=== PATIENT | female | born 1985 | race Two or more races ===

== ENCOUNTER 2020-04-12 16:00 | Emergency (ER) | payer OTHER, SELFPAY ==
[2020-04-12 16:05] VITALS: BP 147/97; PULSE 80; RESP 20; TEMP 36.8; O2SAT 100
--- NOTE | 2020-04-12 16:14 | ED.URI ---
HPI - URI/Sore Throat General Chief Complaint: Upper Respiratory Infection Stated Complaint: sore throat Time Seen by Provider: 04/12/20 16:14 Source: patient and RN notes reviewed History of Present Illness HPI Narrative: Patient is a 35-year-old female who presents the urgent care with complaints of a sore throat, cough and runny nose. Patient states her symptoms started 3 days ago when she has been taking cold medication, Tylenol and ibuprofen. Patient son was diagnosed with strep today at the facility however her kids were not with her throughout the entire weekend and patient is wanting tested for strep . Denies of any known fever, nausea, vomiting, headaches. No other acute complaints. No acute distress noted. Patient aware of the plan of care. Some parts of this dictation were generated by voice recognition software and may contain typographical and/or grammatical inaccuracies. Related Data Home Medications Medication Instructions Recorded Confirmed nortriptyline 25 mg PO HS 04/12/20 04/12/20 propranolol 60 mg PO Q12H 04/12/20 04/12/20 topiramate 100 mg PO BID 04/12/20 04/12/20 Allergies Allergy/AdvReac Type Severity Reaction Status Date / Time No Known Allergies Allergy Verified 04/12/20 16:16 Review of Systems Review of Systems: Narrative: CONSTITUTIONAL: Denies fever, chills, or sweats. EYES: Denies visual changes, redness, or discharge. ENT: Reports of sore throat, otalgia, rhinorrhea CARDIOVASCULAR: Denies chest pain, palpitations, or edema. RESPIRATORY: Denies cough or dyspnea. GASTROINTESTINAL: Denies abdominal pain, nausea, vomiting, or diarrhea. GENITOURINARY: Denies dysuria or hematuria. SKIN: Denies rash or itching. MUSCULOSKELETAL: Denies back pain, joint pain, or myalgia. NEUROLOGIC: Denies headache, numbness, or weakness. All other systems reviewed are negative, except as documented in HPI. PMFSH Comments At the time of my signature, I reviewed and agree with the nursing past medical, surgical, social, and family history. There is no relevant family history pertinent to the patient complaint. Exam Narrative: Exam Narrative: GENERAL: This is a well-nourished, well-developed patient, in no apparent distress. HEAD: normocephalic, atraumatic. EYES: PERRL. Sclera clear/white. Vision is grossly intact. EARS: External ears normal, auditory canals clear and without drainage, mild fluid noted behind bilateral TMs without otitis, TMs normal without perforation. Hearing grossly intact. NOSE: External nose normal with no obvious nasal discharge, nares without redness, no rhinorrhea. THROAT: Mucous membranes moist, posterior pharynx clear. Mild postnasal drainage NECK: Neck supple CARDIOVASCULAR: Regular rate and rhythm without murmurs, gallops, or rubs. RESPIRATORY: Clear to auscultation. Breath sounds equal bilaterally. No wheezes, rales, or rhonchi. SKIN: warm, intact with no suspicious lesions or rash, good texture and turgor. NEURO: awake, alert, and oriented to person, place and time. There were no obvious focal neurologic abnormalities. EXTREMITIES: No clubbing, cyanosis, or edema. Course Vital Signs Vital signs: Vital Signs Temperature 98.2 F 04/12/20 16:05 Pulse Rate 80 04/12/20 16:05 Respiratory Rate 20 04/12/20 16:05 Blood Pressure 147/97 H 04/12/20 16:05 Pulse Oximetry 100 04/12/20 16:05 Temperature 98.2 F 04/12/20 16:05 Pulse Rate 80 04/12/20 16:05 Respiratory Rate 20 04/12/20 16:05 Blood Pressure 147/97 H 04/12/20 16:05 Pulse Oximetry 100 04/12/20 16:05 Reviewed?patient is informed that they may have pre-hypertension or hypertension based on a blood pressure reading in the department. I recommend the patient call the primary care provider listed on their discharge instructions or a physician of their choice this week to arrange follow-up for further evaluation of possible pre-hypertension or hypertension. MDM - URI/Sore Throat MDM Narrative Medic
== END 2020-04-12 16:25 | disposition home or self-care (01) ==
PROVIDERS: Emergency Provider Nurse Practitioner Family; PCP Internal Medicine
DX: J02.9 Acute pharyngitis, unspecified (principal); I10 Essential (primary) hypertension
CPT/HCPCS: 87081; 87880; 99213; G0463

== ENCOUNTER 2022-07-18 17:55 | Emergency (ER) | payer OTHER, SELFPAY ==
[2022-07-18 18:25] VITALS: BP 120/88; PULSE 98; RESP 18; TEMP 36.9; O2SAT 100
--- NOTE | 2022-07-18 19:37 | ED.HA ---
HPI - Headache General Chief Complaint: Headache Stated Complaint: Headache Source: patient and RN notes reviewed Mode of arrival: ambulatory Limitations: no limitations History of Present Illness HPI Narrative: 37-year-old female presented for complaint of headache for 3 days. She endorses a history of migraines. She is taking Tylenol and Excedrin migraine without relief. She endorses nausea and has had 2 nosebleeds today which resolved with pressure. She denies head injury, sinus congestion, cough, shortness of breath, chest pain, vomiting or fevers or chills. Denies numbness, tingling, weakness of extremities. Related Data Home Medications Medication Instructions Recorded Confirmed propranolol 60 mg tablet 60 mg PO Q12H 04/12/20 07/18/22 topiramate 100 mg tablet 50 mg PO DAILY 04/12/20 07/18/22 Allergies Allergy/AdvReac Type Severity Reaction Status Date / Time citric acid Allergy Rash Verified 07/18/22 18:30 peanut Allergy Rash Verified 07/18/22 18:30 Review of Systems Review of Systems: Per HPI All systems reviewed & are unremarkable except as noted in HPI and below PMFSH Comments At time of signature, I have reviewed and agree with nursing past medical, surgical, social and family history unless otherwise noted. Please see nursing chart for further information. There is no relevant family history pertinent to the presenting complaint Exam Narrative: GENERAL: ill-appearing, well-nourished HEAD: Normocephalic, atraumatic. EYES: PERRLA, EOMI. ENT: Mucous membranes pink and moist. No rhinorrhea/epistaxis TMs normal bilaterally. NECK: Normal AROM. Supple. No lymphadenopathy. CHEST: Clear to auscultation. HEART: Regular rate and rhythm. No murmur appreciated. Normal peripheral pulses. EXTREMITIES: Normal range of motion. No edema. SKIN: Warm, dry, no rash. Capillary refill normal. Normal skin turgor. NEURO:No focal deficits. Alert and oriented x3. Finger to nose intact bilaterally. EOMs intact without nystagmus. No facial droop/asymmetry noted bilaterally. Grimace intact. Intact sensation in face. Hearing intact bilaterally. Shoulder shrug intact. Strength 5/5 bilateral upper extremities. Ambulatory exam with a normal based, steady gait. PSYCH: Normal affect. Course Course Emergency Course: Patient is aware of diagnosis, understands and agrees to treatment plan. Anticipatory guidance given. Patient agrees to follow-up as directed and is aware of reasons to seek care at the emergency department. Portions of this record may have been created with voice recognition software Level of Care: Express Care Visit Vital Signs Vital signs: Vital Signs Temperature 98.5 F 07/18/22 18:25 Pulse Rate 98 07/18/22 18:25 Respiratory Rate 18 07/18/22 18:25 Blood Pressure 120/88 07/18/22 18:25 Pulse Oximetry 100 07/18/22 18:25 Oxygen Delivery Room Air 07/18/22 18:25 Temperature 98.5 F 07/18/22 18:25 Pulse Rate 98 07/18/22 18:25 Respiratory Rate 18 07/18/22 18:25 Blood Pressure 120/88 07/18/22 18:25 Pulse Oximetry 100 07/18/22 18:25 Oxygen Delivery Room Air 07/18/22 18:25 MDM - Headache MDM Narrative Medical decision making narrative: patient reassessed after Toradol given. reported headache had subsided. Advised supportive measures and signs/symptoms to go to the ER. Pt is appropriate for outpt treatment and f/u. Differential Diagnosis Differential diagnosis: Likely migraine, tension headache, headache and sinusitis Discharge Plan Discharge Clinical Impression: Headache Patient Disposition: Home, Self-Care Condition: Stable Instructions: Migraine Headache (ED) Additional Instructions: If headache returns, rest in a cool dark room Avoid screens (computers, tablets, phones, television) Drink plenty fluids. Limit stress, avoid alcohol and chocolate, eat regularly Tylenol 1000mg every 8 hours as needed, alternate with ibuprofen
[2022-07-18] MEDS: KETOROLAC (*BKC) 60 MG/2 ML VIAL IM (19:55)
== END 2022-07-18 20:40 | disposition home or self-care (01) ==
PROVIDERS: Emergency Provider Nurse Practitioner Family; PCP Internal Medicine
DX: R51.9 Headache, unspecified (principal); I10 Essential (primary) hypertension
CPT/HCPCS: 96372; 99213; G0463; J1885

== ENCOUNTER 2022-07-30 18:44 | Emergency (ER) | payer OTHER, SELFPAY ==
[2022-07-30 19:08] VITALS: BP 113/77; PULSE 100; RESP 16; TEMP 36.6; O2SAT 100
--- NOTE | 2022-07-30 20:26 | ED.GENADULT ---
HPI - General Adult General Chief complaint: Upper Respiratory Infection Stated complaint: sore throat Source: patient Mode of arrival: ambulatory Limitations: no limitations History of Present Illness HPI narrative: Patient presents for evaluation of sore throat and cough for the last 2 days. She denies any fever, chills, nausea, vomiting, diarrhea. She has some mild shortness of breath. Her son is being evaluated here for the same symptoms. No personal history of COVID. She does not smoke. She is taking some [id number] cough and cold medicine with mild improvement in her symptoms thereafter. Related Data Home Medications Medication Instructions Recorded Confirmed propranolol 60 mg tablet 60 mg PO Q12H 04/12/20 07/18/22 topiramate 100 mg tablet 50 mg PO DAILY 04/12/20 07/18/22 norethindrone 1 mg-ethinyl tablet 07/30/22 estradiol 20 mcg (24)-iron 75 mg (4) tablet (Gui 24 Fe) venlafaxine 150 mg mg PO 07/30/22 capsule,extended release 24 hr Allergies Allergy/AdvReac Type Severity Reaction Status Date / Time citric acid Allergy Rash Verified 07/18/22 18:30 peanut Allergy Rash Verified 07/18/22 18:30 Review of Systems Review of Systems: CONSTITUTIONAL: Denies fever, chills, or sweats. EYES: Denies visual changes, redness, or discharge. ENT: Reports sore throat Denies rhinorrhea, congestion, or otalgia. CARDIOVASCULAR: Denies chest pain, palpitations, or edema. RESPIRATORY: Reports cough. Denies dyspnea. GASTROINTESTINAL: Denies abdominal pain, nausea, vomiting, or diarrhea. GENITOURINARY: Denies dysuria or hematuria. SKIN: Denies rash or itching. MUSCULOSKELETAL: Denies back pain, joint pain, or myalgia. NEUROLOGIC: Denies headache, numbness, dizziness, or weakness. PSYCHIATRIC: Denies anxiety or depression. [facility] Past Medical History Medical History Anxiety Hypertension Surgical History Surgical History History of tubal ligation Family History Family History Mother Family history non-contributory Social History Social History (Updated 07/30/22 @ 20:33 by LUIS ANTONIO Quintero, ) Substance use: never Gender identity (if verbalized by the patient): Female Sexual Orientation (if Verbalized by the Patient): Straight or Heterosexual Spiritual care concerns: No Exam Narrative: GENERAL: Well-appearing, well-nourished, and in no acute distress. HEAD: Normocephalic, atraumatic. EYES: PERRLA and EOMI. ENT: Nares clear, no rhinorrhea or epistaxis. Mucous membranes moist. There is some mild posterior pharyngeal erythema without exudate. Uvula is midline. Bilateral TMs pearly caldera nonbulging NECK: Supple. No adenopathy or masses. No carotid bruits or JVD CHEST: Clear to auscultation. No respiratory distress. No wheezes rales or rhonchi HEART: Regular rate and rhythm. No murmur heard. Normal peripheral pulses. ABDOMEN: Soft, nontender, nondistended, normal active bowel sounds. EXTREMITIES: Normal range of motion. No edema. SKIN: Warm, dry, no rash. NEURO: No focal deficits. Alert and oriented x3. PSYCH: Normal mood and affect. Course Course Emergency Course: This is a 37-year-old female who presented for evaluation of sore throat and cough. Strep was positive. Will treat with amoxicillin. Increase hydration. [id number] agents for symptom management. Follow up with primary provider. Go to the ER for difficulty breathing or swelling. Patient in agreement with plan of care. Level of Care: Express Care Visit Vital Signs Vital signs: Vital Signs Temperature 36.6 C 07/30/22 19:08 Pulse Rate 100 07/30/22 19:08 Respiratory Rate 16 07/30/22 19:08 Blood Pressure 113/77 07/30/22 19:08 Pulse Oximetry 100 07/30/22 19:08 Oxygen Delivery Room Air 07/30/22 19:08
== END 2022-07-30 20:32 | disposition home or self-care (01) ==
PROVIDERS: Emergency Provider Nurse Practitioner; PCP Internal Medicine
DX: J02.0 Streptococcal pharyngitis (principal); I10 Essential (primary) hypertension; F41.9 Anxiety disorder, unspecified
CPT/HCPCS: 87880; 99213; G0463

== ENCOUNTER 2023-09-18 16:47 | Emergency (ER) | payer OTHER, SELFPAY ==
--- NOTE | 2023-09-18 16:51 | ED.URI ---
HPI - URI/Sore Throat General Chief Complaint: Upper Respiratory Infection Stated Complaint: Sore Throat Source: patient and RN notes reviewed Mode of arrival: ambulatory Limitations: no limitations History of Present Illness HPI Narrative: Patient is a 38-year-old female who presents to the [facility] with complaints of sore throat, cough, and congestion for the past week. She states that her symptoms continue to worsen. She reports a frequent nonproductive cough. Denies chest pain or shortness of breath. She reports worsening sore throat. States that it hurts to swallow. She also experienced some mild abdominal pain this morning that is not present currently. She denies nausea or vomiting. Reports diarrhea. Denies blood in the stool. Denies known fevers. Denies any known sick contacts. Related Data Home Medications Medication Instructions Recorded Confirmed propranolol 60 mg tablet 60 mg PO Q12H 04/12/20 07/18/22 topiramate 100 mg tablet 50 mg PO DAILY 04/12/20 07/18/22 norethindrone 1 mg-ethinyl tablet 07/30/22 estradiol 20 mcg (24)-iron 75 mg (4) tablet (Gui 24 Fe) venlafaxine 150 mg mg PO 07/30/22 capsule,extended release 24 hr cetirizine 10 mg tablet mg 09/18/23 omeprazole 20 mg capsule,delayed mg 09/18/23 release rizatriptan 10 mg tablet mg 09/18/23 valsartan 160 tablet 09/18/23 mg-hydrochlorothiazide 12.5 mg tablet Allergies Allergy/AdvReac Type Severity Reaction Status Date / Time citric acid Allergy Rash Verified 09/18/23 17:37 peanut Allergy Rash Verified 09/18/23 17:37 Review of Systems Review of Systems: CONSTITUTIONAL: Denies fever, chills, or sweats. EYES: Denies visual changes, redness, or discharge. ENT: Denies otalgia. Reports sore throat. Reports nasal congestion. CARDIOVASCULAR: Denies chest pain, palpitations, or edema. RESPIRATORY: Reports cough but denies dyspnea. GASTROINTESTINAL: Denies abdominal pain, nausea, vomiting, but reports diarrhea. GENITOURINARY: Denies dysuria or hematuria. SKIN: Denies rash or itching. MUSCULOSKELETAL: Denies back pain, joint pain, or myalgia. NEUROLOGIC: Denies headache, numbness, or weakness. Pertinent positives per HPI. PMFSH Past Medical History Medical History Anxiety Hypertension Surgical History Surgical History History of tubal ligation Family History Family History Mother Family history non-contributory Social History Social History Substance use: never Living arrangements: with family Gender identity (if verbalized by the patient): Female Sexual Orientation (if Verbalized by the Patient): Straight or Heterosexual Spiritual care concerns: No Comments At the time of my signature, I reviewed and agree with the nursing past medical, surgical, social, and family history. There is no relevant family history pertinent to the patient complaint. Exam Narrative: GENERAL: This is a well-nourished, well-developed patient, in no apparent distress. HEAD: normocephalic, atraumatic. EYES: Sclera clear/white. Vision is grossly intact. EARS: External ears normal. Hearing grossly intact. NOSE: External nose normal with no obvious nasal discharge, nares without redness, no rhinorrhea. THROAT: Mucous membranes moist, oropharyngeal erythema without exudate or ulceration. NECK: Neck supple, non-tender without lymphadenopathy, masses or thyromegaly. CARDIOVASCULAR: Regular rate and rhythm without murmurs, gallops, or rubs. RESPIRATORY: Clear to auscultation. Breath sounds equal bilaterally. No wheezes, rales, or rhonchi. GASTROINTESTINAL: Abdomen soft, non-tender, nondistended. Bowel sounds are active. No hepato-splenomegaly, or palpable masses. No guarding. SKIN: warm, intact wi
[2023-09-18 16:54] VITALS: BP 139/93; PULSE 100; RESP 16; TEMP 36.5; O2SAT 100
== END 2023-09-18 17:52 | disposition home or self-care (01) ==
PROVIDERS: Emergency Provider Nurse Practitioner; PCP Internal Medicine
DX: J02.0 Streptococcal pharyngitis (principal); Z20.822 Contact with and (suspected) exposure to COVID-19; I10 Essential (primary) hypertension
CPT/HCPCS: 87426; 87804; 87880; 99213; G0463

== ENCOUNTER 2024-01-10 13:19 | Emergency (ER) | payer OTHER, SELFPAY ==
[2024-01-10 13:23] VITALS: BP 122/81; PULSE 109; RESP 18; TEMP 36.7; O2SAT 100
--- NOTE | 2024-01-10 13:50 | ED.URI ---
HPI - URI/Sore Throat General Chief Complaint: Upper Respiratory Infection Stated Complaint: sore throat Time Seen by Provider: 01/10/24 13:42 Source: patient, RN notes reviewed and old records reviewed Mode of arrival: ambulatory Limitations: no limitations History of Present Illness HPI Narrative: 38-year-old female to Express Care for complaint sore throat, runny nose and bilateral ear pressure for 3 days. Patient has attempted to treat at home with [id number] medication with little relief. Patient denies fever, cough, chest pain, shortness of breath. Patient able tolerate fluids by mouth. Respirations even and nonlabored. Patient in no acute distress. Related Data Home Medications Medication Instructions Recorded Confirmed propranolol 60 mg tablet 60 mg PO Q12H 04/12/20 07/18/22 topiramate 100 mg tablet 50 mg PO DAILY 04/12/20 07/18/22 norethindrone 1 mg-ethinyl tablet 07/30/22 estradiol 20 mcg (24)-iron 75 mg (4) tablet (Gui 24 Fe) venlafaxine 150 mg mg PO 07/30/22 capsule,extended release 24 hr omeprazole 20 mg capsule,delayed mg 09/18/23 release rizatriptan 10 mg tablet mg 09/18/23 valsartan 160 tablet 09/18/23 mg-hydrochlorothiazide 12.5 mg tablet Allergies Allergy/AdvReac Type Severity Reaction Status Date / Time citric acid Allergy Rash Verified 09/18/23 17:37 peanut Allergy Rash Verified 09/18/23 17:37 Review of Systems Review of Systems: All systems reviewed & are unremarkable except as noted in HPI and below Constitutional: Constitutional: Reports no additional constitutional complaints Eyes: Eyes: Reports no additional eye complaints ENT: Reports as per HPI, Reports otalgia ( Bilateral pressure), Reports nasal discharge and Reports sore throat Cardiovascular: Cardiovascular: Reports no additional cardiovascular complaints, Denies chest pain and Denies dyspnea Respiratory: Respiratory: Reports no additional respiratory complaints, Denies cough and Denies dyspnea Musculoskeletal: Musculoskeletal: Reports no additional musculoskeletal complaints Neurologic: Reports system reviewed and no additional complaints, except as documented Psychiatric: Psychiatric: Reports no additional psychiatric complaints PMFSH Past Medical History Medical History Anxiety Hypertension Surgical History Surgical History History of tubal ligation Family History Family History Mother Family history non-contributory Social History Social History Substance use: never Living arrangements: with family Gender identity (if verbalized by the patient): Female Sexual Orientation (if Verbalized by the Patient): Straight or Heterosexual Spiritual care concerns: No Comments At the time of my signature, I reviewed and agree with the nursing past medical, surgical, social, and family history. There is no relevant family history pertinent to the patient complaint. Exam Const: General: cooperative, no acute distress, alert, ill appearing acutely, tired appearing, uncomfortable and well nourished Nutritional Appearance: well nourished Orientation/consciousness: patient oriented x3 Limitations: no limitations HENMT: Head: normal to inspection Ears: external ears normal and TM abnormal with fluid behind the TM bilateral Face/Nose/Sinus: Normal external nose present, Normal nares present, normal facial exam, No erythema and No edema Face and sinus: normal facial exam, no erythema and no edema Mouth: Yes Normal oral and palatal mucosa present Throat: posterior oropharynx abnormal erythema and exudates and postnasal drainage Eyes: General: appearance normal, both eyes and all related structures Neck: Neck: normal visual inspection, full R
== END 2024-01-10 14:13 | disposition home or self-care (01) ==
PROVIDERS: Emergency Provider Nurse Practitioner Family; PCP Internal Medicine
DX: J02.0 Streptococcal pharyngitis (principal); I10 Essential (primary) hypertension
CPT/HCPCS: 87880; 99212; G0463

== ENCOUNTER 2024-10-13 08:59 | Outpatient (CLI) | payer OTHER, SELFPAY ==
--- NOTE | ~2024-10-13 | XR_ITS ---
XR sacroiliac joints min 3V Ordering provider: Kali Knapp DO History: . Scoliosis,CHRONIC LOW BACK PAIN,NKI . Comparison: None. FINDINGS: BONES: No acute fracture or dislocation. JOINTS: The bilateral sacroiliac joint spaces appear well maintained. No bony fusion of the sacroilia c joints or bony erosions. SOFT TISSUES: Unremarkable. IMPRESSION: NO ACUTE OSSEOUS ABNORMALITY. NORMAL SACROILIAC JOINTS. Reviewed, dictated and finalized at location A.
--- NOTE | ~2024-10-13 | XR_ITS ---
3 VIEWS LUMBAR SPINE Ordering provider: Kali Knapp DO History: . Scoliosis,CHRONIC LOW BACK PAIN,NKI . Comparison: None. FINDINGS: VERTEBRAL BODIES: No visible fracture or subluxation. Loss of lordosis. DISK SPACES: Narrowing of the disc L5-S1. SOFT TISSUES: Normal. IMPRESSION: No acute osseous abnormality lumbar spine. Degenerative disc disease at the level of L5-S1. Loss of lordosis suggestive of muscle spasm. Reviewed, dictated and finalized at location A.
--- OUTSIDE RECORDS SUMMARY | 2024-10-13 09:38 | XMS_ITS | Data Portability ---
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 possible early menopause? - no desire to wait a month to do testing [email or web address] Not available 08/06/2024 10:56:28 Plan of Treatment Reminders Order Date Submit Date Provider Last Modified By Organization Details Last Modified Time Details Appointments None recorded. Lab cytology report, thin prep, smear or scraping, cervical or vaginal 2024 025 [facility], [address] [place] [address], [id number], 5 11:10:59 urinalysis , dipstick 2023 024 nsuthan In-Office Order, Internal Use Only DO Not Attach Compendium DO Not Attach Compendium, Do Not Delete/merge, [id number] 4 12:22:53 Referral sleep medicine referral 2024 025 castillo Costa MD, 1 [facility], Third Floor, [place], [address], 5 11:34:47 clinical therapist referral 2024 025 FLETCHER Quinones [facility], [facility], [address] [place], [address], 16:24:36 Procedures None recorded. Surgeries None recorded. Imaging None recorded. Medication Orders Gui 24 Fe 1 mg-20 mcg (24)/75 mg (4) tablet 2024 025 [facility], [address] [place] [address], [address], 5 10:48:32 nitrofuran toin monohydrat e/macrocry stals 100 mg capsule 2023 025 [facility], [address] [place] [address], [address], 5 11:34:07 Pyridium 200 mg tablet 2023 025 [facility], [address] [place] [address], [address], 5 11:34:41 hydroxyzin e HCl 25 mg tablet 2023 024 [facility], [address] [place] [address], [address], 4 12:11:00 Patient TargetsNo targets recorded. Patient Instructions Encounter Date Encounter Id Patient Instructions Last Modified By Organization Details Last Modified Time 11/28/2023 [id number] eating healthy foods: care instructions nsuthan Not available 11/28/2023 09:50:40 f/u in 1month nsuthan Not available 09:52:00 12/31/2023 [id number] f/u in 3month nsuthan Not available 0 12/31/2023 11:38:59 02/13/2024 [id number] keep f/u nsuthan Not available 02/12 15:36:25 08/03/2024 [id number] f/u in 1 month nsuthan Not available 08/03/2024 12:31:31 Reason for Referral Sleep Medicine Referral for Daytime hypersomnia Referring Physician: Allyson Macias, Internal Medicine, Encounter Date: 08/03/2024 Clinical Therapist Referral for Mixed anxiety and depressive disorder Referring Physician: Allyson Macias, Internal Medicine, Encounter Date: 08/03/2024 Results Created Date Observation Date Name Description Value Unit Range Abnormal Flag Note LastModifiedBy Organization Detail LastModifiedTime 11/08/19 24 11/12/2023 IGP,C TNGTV ,RFX APTIM A HPV ASCU chlamydia, nuc. acid amp Negati ve negati ve Not Available [facility] ([facility]) [address] [place], [address], 11/14/2023 16:16:52 11/08/19 24 11/12/2023 IGP,C TNGTV ,RFX APTIM A HPV ASCU gonococcus, nuc. acid amp Negati ve negati ve Not Available [facility] ([facility]) [address] [place], [address], 11/14/2023 16:16:52 11/08/19 24 11/12/2023 IGP,C TNGTV ,RFX APTIM A HPV ASCU trich vag by NUNO Negati ve negati ve Not Available [facility] ([facility]) [address] [place], [address], 11/14/2023 16:16:52 11/08/19 24 11/14/2023 IGP,C TNGTV ,RFX APTIM A HPV ASCU diagnosis: Commen t NEGAT JAIME FOR INTRA EPITH ELIAL LESIO N OR MALIG BRITANY . FUNGA L ORGAN ISMS MORPH OLOGI RAYMUNDO CONSI STENT WITH LOKESH DA SPECI ES ARE PRESE NT. PREDO MINAN CE OF COCCO BACIL LI CONSI STENT WITH SHIFT IN VAGIN AL LEVI IS PRESE NT. THIS SPECI MEN WAS RESCR EENED PART OF OUR QUALI TY CONTR OL PROGR AM. Not Available [facility] ([facility]) [address] [place], [address], 11/14/2023 16:16:52 11/08/19 24 11/14/2023 IGP,C TNGTV ,RFX APTIM A HPV ASCU specimen adequacy: Bryan griffiths Satis facto ry for evalu ation . No endoc ervic al compo nent is ident ified . Not Available [facility] ([facility]) [address] [facility], [place], [address], 11/14/2023 16:16:52 11/08/19 24 11/14/2023 IGP,C TNGTV ,RFX APTIM A HPV ASCU clinician provided ICD10: Bryan griffiths R87.6 12 Not Available [facility] ([facility]) [address] [facility], [place], [address], 11/14/2023 16:16:52 11/08/19 24 11/14/2023 IGP,C TNGTV ,RFX APTIM A HPV ASCU performed by: Bryan swenson, Cytot echno logis t (ASCP ) Not Available [facility] ([facility]) [address] [facility], [place], [address], 11/14/2023 16:16:52 11/08/19 24 11/14/2023 IGP,C TNGTV ,RFX APTIM A HPV ASCU QC reviewed by: Bryan Pedroza, Cytot echno logis t (ASCP ) Not Available [facility] ([facility]) [address] [facility], [place], [address], 11/14/2023 16:16:52 11/08/19 24 11/14/2023 IGP,C TNGTV ,RFX APTIM A HPV ASCU . . Not Available [facility] ([facility]) [address] [place], [address], 11/14/2023 16:16:52 11/08/19 24 11/14/2023 IGP,C TNGTV ,RFX APTIM A HPV ASCU note: Commen t The Pap smear is a scree apoorva test desig marcos to aid in the detec tion of ludwig ligna nt and malig nant condi tions of the uteri ne cervi x. It is not a diagn ostic proce dure and shoul d not be used as the sole means of detec ting cervi jignesh cance r. Both false -posi tive and false -nega tive repor ts do occur . Not Available [facility] ([facility]) [address] [place], [address], 11/14/2023 16:16:52 11/08/19 24 11/14/2023 IGP,C TNGTV ,RFX APTIM A HPV ASCU test methodology: Commen t This liqui d based ThinP rep(R ) pap test was scree marcos with the use of an image guide d syste m. Not Available [facility] ([facility]) [address] [place], [address], 11/14/2023 16:16:52 11/08/19 24 11/14/2023 IGP,C TNGTV ,RFX APTIM A HPV ASCU . Commen t The HPV DNA refle x crite hunter were not met with this speci men resul t there fore, no HPV testi ng was perfo rmed. Not Available [facility] ([facility]) [address] [place], [address], 11/14/2023 16:16:52 11/28/19 24 12/06/2023 METAN EPHRI JERZY, FRAC. , PL. FREE normetanephr ine, pl 80.0 pg/mL 0.0-21 0.1 Not Available [facility] ([facility]) [address] [place], [address], 12/06/2023 16:12:52 11/28/19 24 12/06/2023 METAN EPHRI JERZY, FRAC. , PL. FREE metanephrine , pl 30.3 pg/mL 0.0-88 .0 Not Available [facility] ([facility]) [address] [place], [address], 12/06/2023 16:12:52 11/28/19 24 11/29/2023 COMP. METAB OLIC PANEL (14) glucose 113 mg/dL 70-99 above high normal Not Available [facility] ([facility]) [address] [place], [address], 12/06/2023 16:12:53 11/28/19 24 11/29/2023 COMP. METAB OLIC PANEL (14) BUN 10 mg/dL 6-20 Not Available [facility] ([facility]) [address] [place], [address], 12/06/2023 16:12:53 11/28/19 24 11/29/2023 COMP. METAB OLIC PANEL (14) creatinine 0.69 mg/dL 0.57-1 .00 Not Available [facility] ([facility]) [address] [place], [address], 12/06/2023 16:12:53 11/28/19 24 11/29/2023 COMP. METAB OLIC PANEL (14) eGFR 115 mL/mi n/1.7 3 >59 Not Available [facility] ([facility]) [address] [place], [address], 12/06/2023 16:12:53 11/28/19 24 11/29/2023 COMP. METAB OLIC PANEL (14) BUN/creatini ne ratio 14 9-23 Not Available [facility]) [address] [place], [address], 12/06/2023 16:12:53 11/28/19 24 11/29/2023 COMP. METAB OLIC PANEL (14) sodium 139 mmol/ L 134-14 4 Not Available [facility] ([facility]) [address] [place], [address], 12/06/2023 16:12:53 11/28/19 24 11/29/2023 COMP. METAB OLIC PANEL (14) potassium 4.4 mmol/ L 3.5-5. 2 Not Available [facility] ([facility]) [address] [place], [address], 12/06/2023 16:12:53 11/28/19 24 11/29/2023 COMP. METAB OLIC PANEL (14) chloride 99 mmol/ L 96-106 Not Available [facility] ([facility]) [address] [place], [address], 12/06/2023 16:12:53 11/28/19 24 11/29/2023 COMP. METAB OLIC PANEL (14) carbon dioxide, total 26 mmol/ L 20-29 Not Available [facility] ([facility]) [address] [facility] [place], [address], 12/06/2023 16:12:53 11/28/19 24 11/29/2023 COMP. METAB OLIC PANEL (14) calcium 9.5 mg/dL 8.7-10 .2 Not Available [facility] ([facility] [address] [facility] [place], [address], 12/06/2023 16:12:53 11/28/19 24 11/29/2023 COMP. METAB OLIC PANEL (14) protein, total 6.6 g/dL 6.0-8. 5 Not Available [facility] ([facility] [address] [facility] [place], [address], 12/06/2023 16:12:53 11/28/19 24 11/29/2023 COMP. METAB OLIC PANEL (14) albumin 4.2 g/dL 3.9-4. 9 Not Available [facility] ([place] [facility]) [address] [facility] [place], [address], 12/06/2023 16:12:53 11/28/19 24 11/29/2023 COMP. METAB OLIC PANEL (14) globulin, total 2.4 g/dL 1.5-4. 5 Not Available [facility] ([facility]) [address] [facility], [place], [address], 12/06/2023 16:12:53 11/28/19 24 11/29/2023 COMP. METAB OLIC PANEL (14) A/G ratio 1.8 1.2-2. 2 Not Available [facility] ([facility]) [address] [facility], [place], [address], 12/06/2023 16:12:53 11/28/19 24 11/29/2023 COMP. METAB OLIC PANEL (14) bilirubin, total 0.3 mg/dL 0.0-1. 2 Not Available [facility] ([facility]) [address] [facility], [place], [address], 12/06/2023 16:12:53 11/28/19 24 11/29/2023 COMP. METAB OLIC PANEL (14) alkaline phosphatase 56 IU/L 44-121 Not Available [facility] [address] [facility], [place], [address], 12/06/2023 16:12:53 11/28/19 24 11/29/2023 COMP. METAB OLIC PANEL (14) AST (SGOT) 14 IU/L 0-40 Not Available [facility] ([facility]) [address] [facility], [place], [address], 12/06/2023 16:12:53 11/28/19 24 11/29/2023 COMP. METAB OLIC PANEL (14) ALT (SGPT) 12 IU/L 0-32 Not Available [facility] ([facility]) [address] [facility], [place], [address], 12/06/2023 16:12:53 11/28/19 24 11/29/2023 CBC, PLATE LET, NO DIFFE RENTI AL WBC 6.2 x10e3 /uL 3.4-10 .8 Not Available [facility] ([facility]) [address] [facility], [place], [address], 12/06/2023 16:12:53 11/28/19 24 11/29/2023 CBC, PLATE LET, NO DIFFE RENTI AL RBC 4.70 x10e6 /uL 3.77-5 .28 Not Available [facility] ([facility]) [address] [facility], [place], [address], 12/06/2023 16:12:53 11/28/19 24 11/29/2023 CBC, PLATE LET, NO DIFFE RENTI AL hemoglobin 14.3 g/dL 11.1-1 5.9 Not Available [facility] ([facility]) [address] [place], [address], 12/06/2023 16:12:53 11/28/19 24 11/29/2023 CBC, PLATE LET, NO DIFFE RENTI AL hematocrit 43.6 % 34.0-4 6.6 Not Available [facility] ([facility]) [address] [facility], [place], [address], 12/06/2023 16:12:53 11/28/19 24 11/29/2023 CBC, PLATE LET, NO DIFFE RENTI AL MCV 93 fL 79-97 Not Available [facility] ([facility]) [address] [place], [address], 12/06/2023 16:12:53 11/28/19 24 11/29/2023 CBC, PLATE LET, NO DIFFE RENTI AL MCH 30.4 pg 26.6-3 3.0 Not Available [facility] ([facility]) [address] [place], [address], 12/06/2023 16:12:53 11/28/19 24 11/29/2023 CBC, PLATE LET, NO DIFFE RENTI AL MCHC 32.8 g/dL 31.5-3 5.7 Not Available [facility] ([facility]) [address] [facility], [place], [address], 12/06/2023 16:12:53 11/28/19 24 11/29/2023 CBC, PLATE LET, NO DIFFE RENTI AL RDW 11.9 % 11.7-1 5.4 Not Available [facility] ([facility]) [address] [facility], [place], [address], 12/06/2023 16:12:53 11/28/19 24 11/29/2023 CBC, PLATE LET, NO DIFFE RENTI AL platelets 342 x10e3 /uL 150-45 0 Not Available [facility] ([facility]) [address] [facility], [place], [address], 12/06/2023 16:12:53 02/13/20 24 02/13/2024 urina lysis , dipst ick Leukocytes Trace Not Available In-Offi ce Order Internal Use Only DO Not Attach Compendium DO Not Attach Compendium, Do Not Delete/merge, [id number] 02/13/2024 12:13:43 02/13/20 24 02/13/2024 urina lysis , dipst ick Nitrite negati ve Not Available In-Office Order Internal Use Only DO Not Attach Compendium DO Not Attach Compendium, Do Not Delete/merge, [id number] 02/13/2024 12:13:43 02/13/20 24 02/13/2024 urina lysis , dipst ick Urobilinogen 2 Not Available In-Of fice Order Internal Use Only DO Not Attach Compendium DO Not Attach Compendium, Do Not Delete/merge, [id number] 02/13/2024 12:13:43 02/13/20 24 02/13/2024 urina lysis , dipst ick Protein Trace Not Available In-Office Order Internal Use Only DO Not Attach Compendium DO Not Attach Compendium, Do Not Delete/merge, [id number] 02/13/2024 12:13:43 02/13/20 24 02/13/2024 urina lysis , dipst ick pH 7.5 Not Available In-Office Order Internal Use Only DO Not Attach Compendium DO Not Attach Compendium, Do Not Delete/merge, 02/13/2024 12:13:43 02/13/20 24 02/13/2024 urina lysis , dipst ick Blood Non-He molyze d: Trace Not Available In-Office Order Internal Use Only DO Not Attach Compendium DO Not Attach Compendium, Do Not Delete/merge, 02/13/2024 12:13:43 02/13/20 24 02/13/2024 urina lysis , dipst ick Specific Perris 1.015 Not Available In-Off ice Order Internal Use Only DO Not Attach Compendium DO Not Attach Compendium, Do Not Delete/merge, 02/13/2024 12:13:43 02/13/20 24 02/13/2024 urina lysis , dipst ick Ketone Negati ve Not Available In-Office Order Internal Use Only DO Not Attach Compendium DO Not Attach Compendium, Do Not Delete/merge, 02/13/2024 12:13:43 02/13/20 24 02/13/2024 urina lysis , dipst ick Bilirubin Negati ve Not Available In-Office Order Internal Use Only DO Not Attach Compendium DO Not Attach Compendium, Do Not Delete/merge, 02/13/2024 12:13:43 02/13/20 24 02/13/2024 urina lysis , dipst ick Glucose Negati ve Not Available In-Office Order Internal Use Only DO Not Attach Compendium DO Not Attach Compendium, Do Not Delete/merge, 02/13/2024 12:13:43 02/13/20 24 02/13/2024 urina lysis , dipst ick Appearance Clear Not Available In-Offi ce Order Internal Use Only DO Not Attach Compendium DO Not Attach Compendium, Do Not Delete/merge, 02/13/2024 12:13:43 02/13/20 24 02/13/2024 urina lysis , dipst ick Color Yellow Not Available In-Office Order Internal Use Only DO Not Attach Compendium DO Not Attach Compendium, Do Not Delete/merge, [id number] 02/13/2024 12:13:43 06/22/2006/22/2024 Influ princess virus A and B and SARS- CoV-2 (COVI D-19) and Respi rator y syncy tial virus RNA panel - Respi rator y syste m speci men by NUNO with probe detec tion influenza virus A RNA [presence] in upper respiratory specimen by NUNO with probe detection Negati ve text: negati ve, error FLU A Negat jaime Negat jaime, Error 06/22 12:17 PM POOLROOM TABLE ATTENDANT [facility] Not Available Not Available 09/21/2024 15:22:53 06/22/20 24 06/22/2024 Influ princess virus A and B and SARS- CoV-2 (COVI D-19) and Respi rator y syncy tial virus RNA panel - Respi rator y syste m speci men by NUNO with probe detec tion influenza virus B RNA [presence] in upper respiratory specimen by NUNO with probe detection Negati ve text: negati ve FLU B Negat jaime Negat jaime 06/22 12:17 PM POOLROOM TABLE ATTENDANT [facility] Not Available Not Available 09/21/2024 15:22:53 06/22/20 24 06/22/2024 Influ princess virus A and B and SARS- CoV-2 (COVI D-19) and Respi rator y syncy tial virus RNA panel - Respi rator y syste m speci men by NUNO with probe detec tion respiratory syncytial virus RNA [presence] in respiratory system specimen by NUNO with probe detection Negati ve text: negati ve RESP SYNC VIRUS Negat jaime Negat jaime 06/22 12:17 PM POOLROOM TABLE ATTENDANT [facility] [employer] R LAB Not Available Not Available 09/21/2024 15:22:53 06/22/20 24 06/22/2024 Influ princess virus A and B and SARS- CoV-2 (COVI D-19) and Respi rator y syncy tial virus RNA panel - Respi rator y syste m speci men by NUNO with probe detec tion sars-cov-2 (covid-19) N gene [presence] in specimen by NUNO with probe detection NOT DETECT ED text: (refer ence range for this test IS not detect ed) SARSC OV2 NOT DETEC TERE (Refe rence Range for this test is Not Detec tere) 06/22 12:17 PM POOLROOM TABLE ATTENDANT [facility] Not Available Not Available 09/21/2024 15:22:53 06/22/2006/22/2024 Influ princess virus A and B and SARS- CoV-2 (COVI D-19) and Respi rator y syncy tial virus RNA panel - Respi rator y syste m speci men by NUNO with probe detec tion Unknown Analyte This test has not been FDA cleare d or approv ed; the test has been author ized by FDA under an Emerge ncy Use Author izronnie n (EUA) for use by twila fernandes certif ied under the CLIA that meet the requir ements to perfor m modera te, high or waived comple xity tests. Author ized Fact Sheets about this test for provid ers and patien ts are availa ble at: https: //www. fda.go v/medi jignesh-de vices/ emerge ncy-si tuatio ns-med ical-d evices /emerg ency-u se-aut horiza tions This test has not been FDA clear ed or appro lamont; the test has been autho rized by FDA under an Emerg ency Use Autho rizat ion (EUA) for use by labor atori es certi fied under the CLIA that meet the requi remen ts to perfo rm moder ate, high or waive d compl exity tests . Autho rized Fact Sheet s about this test for provi ders and patie nts are avail able at: https ://ww w.fda .gov/ medic al-de vices /emely gency -situ ation s-med ical- devic es/em ergen cy-us e-aut horiz ation s Not Available Not Available 09/21/2024 15:22:53 06/22/2006/22/2024 Influ princess virus A and B and SARS- CoV-2 (COVI D-19) and Respi rator y syncy tial virus RNA panel - Respi rator y syste m speci men by NUNO with probe detec tion interpretati on and review of laboratory results Normal Not Available Not Available 08/30 15:22:53 06/22/2006/22/2024 CBC W Auto Diffe renti al panel - Blood leukocytes [#/volume] in blood by automated count 7.48 text: 4.00 - 12.00 10(3)/ mcL WBC 7.48 4.00 - 12.00 10(3) /mcL 06/22 11:07 AM POOLROOM TABLE ATTENDANT [facility] t[facility]caT H [facility]ER[facility] R LAB Not Available Not Available 09/21/2024 15:22:53 06/22/2006/22/2024 CBC W Auto Diffe renti al panel - Blood erythrocytes [#/volume] in blood by automated count 4.75 text: 3.80 - 5.30 10(6)/ mcL RBC 4.75 3.80 - 5.30 10(6) /mcL 06/22 11:07 AM POOLROOM TABLE ATTENDANT [facility] Not Available Not Available 09/21/2024 15:22:53 06/22/2006/22/2024 CBC W Auto Diffe renti al panel - Blood hemoglobin [mass/volume ] in blood 14.6 g/dL low: 12g/dL high: 15.8g/ dL HEMOG LOBIN (HGB) 14.6 12.0 - 15.8 g/dL 06/22 11:07 AM POOLROOM TABLE ATTENDANT [facility] tamycaT H i[facility]OSPHEREE R LAB Not Available Not Available 09/21/2024 15:22:53 06/22/2006/22/2024 CBC W Auto Diffe renti al panel - Blood hematocrit [volume fraction] of blood by automated count 43.3 % low: 36%hig h: 47% HEMAT OCRIT (HCT) 43.3 36.0 - 47.0 % 06/22 11:07 AM POOLROOM TABLE ATTENDANT [facility] tamycaT H CENTE R LAB Not Available Not Available 09/21/2024 15:22:53 06/22/2006/22/2024 CBC W Auto Diffe renti al panel - Blood MCV [entitic volume] by automated count 91.2 fL low: 82fLhi gh: 96fL MCV 91.2 82.0 - 96.0 fL 06/22 11:07 AM POOLROOM TABLE ATTENDANT [facility] Not Available Not Available 09/21/2024 15:22:53 06/22/2006/22/2024 CBC W Auto Diffe renti al panel - Blood MCH [entitic mass] by automated count 30.7 pg low: 26pghi gh: 34pg MCH 30.7 26.0 - 34.0 pg 06/22 11:07 AM [facility] Not Available Not Available 09/21/2024 15:22:53 06/22/2006/22/2024 CBC W Auto Diffe renti al panel - Blood MCHC [mass/volume ] by automated count 33.7 g/dL low: 31g/dL high: 36g/dL MCHC 33.7 31.0 - 36.0 g/dL 06/22 11:07 AM [facility] Not Available Not Available 09/21/2024 15:22:53 06/22/2006/22/2024 CBC W Auto Diffe renti al panel - Blood platelets [#/volume] in blood 363 text: 140 - 440 10(3)/ mcL PLATE LET COUNT 363 140 - 440 10(3) /mcL 06/22 11:07 AM [facility] Not Available Not Available 09/21/2024 15:22:53 06/22/2006/22/2024 CBC W Auto Diffe renti al panel - Blood erythrocyte distribution width [ratio] by automated count 12.5 % low: 11.8%h igh: 15.5% RDW 12.5 11.8 - 15.5 % 06/22 11:07 AM [facility] Not Available Not Available 09/21/2024 15:22:53 06/22/2006/22/2024 CBC W Auto Diffe renti al panel - Blood platelet mean volume [entitic volume] in blood by automated count 9.5 fL low: 9.7fLh igh: 12.4fL low MPV 9.5 (L) 9.7 - 12.4 fL 06/22 11:07 AM POOLROOM TABLE ATTENDANT [facility] LAB Not Available Not Available 09/21/2024 15:22:53 06/22/2006/22/2024 CBC W Auto Diffe renti al panel - Blood neutrophils/ 100 leukocytes in blood by automated count 70.8 % low: 47%hig h: 73% NEUTR OPHIL S 70.8 47.0 - 73.0 % 06/22 11:07 AM [facility]OLROOM TABLE [facility] Not Available Not Available 09/21/2024 15:22:53 06/22/2006/22/2024 CBC W Auto Diffe renti al panel - Blood lymphocytes/ 100 leukocytes in blood by automated count 20.9 % low: 18%hig h: 42% LYMPH OCYTE S 20.9 18.0 - 42.0 % 06/22 11:07 AM POOLROOM TABLE ATTENDANT [facility] R LAB Not Available Not Available 09/21/2024 15:22:53 06/22/2006/22/2024 CBC W Auto Diffe renti al panel - Blood monocytes/10 0 leukocytes in blood by automated count 7.4 % low: 4%high : 12% MONOC YTES 7.4 4.0 - 12.0 % 06/22 11:07 AM POOLROOM TABLE [facility] Not Available Not Available 09/21/2024 15:22:53 06/22/2006/22/2024 CBC W Auto Diffe renti al panel - Blood eosinophils/ 100 leukocytes in blood by automated count 0.5 % low: 0%high : 5% EOSIN OPHIL S 0.5 0.0 - 5.0 % 06/22 11:07 AM POOLROOM TABLE [facility] Not Available Not Available 09/21/2024 15:22:53 06/22/20 24 06/22/2024 CBC W Auto Diffe renti al panel - Blood basophils/10 0 leukocytes in blood by automated count 0.4 % low: 0%high : 1% BASOP HILS 0.4 0.0 - 1.0 % 06/22 11:07 AM POOLROOM TABLE [facility] Not Available Not Available 09/21/2024 15:22:53 06/22/20 24 06/22/2024 CBC W Auto Diffe renti al panel - Blood neutrophils [#/volume] in blood by automated count 5.3 text: 1.60 - 7.70 10(3)/ mcL ABSOL [place] NEUTR OPHIL S 5.30 1.60 - 7.70 10(3) /mcL 06/22 11:07 AM POOLROOM TABLE [facility] Not Available Not Available 09/21/2024 15:22:53 06/22/20 24 06/22/2024 CBC W Auto Diffe renti al panel - Blood lymphocytes [#/volume] in blood by automated count 1.56 text: 1.30 - 3.20 10(3)/ mcL ABSOL [place] LYMPH OCYTE S 1.56 1.30 - 3.20 10(3) /mcL 06/22 11:07 AM POOLROOM TABLE [facility] Not Available Not Available 09/21/2024 15:22:53 06/22/2006/22/2024 CBC W Auto Diffe renti al panel - Blood monocytes [#/volume] in blood by automated count 0.55 text: 0.20 - 1.00 10(3)/ mcL ABSOL [place] MONOC YTES 0.55 0.20 - 1.00 10(3) /mcL 06/22 11:07 AM POOLROOM [facility] Not Available Not Available 09/21/2024 15:22:53 06/22/20 24 06/22/2024 CBC W Auto Diffe renti al panel - Blood eosinophils [#/volume] in blood by automated count 0.04 text: 0.00 - 0.40 10(3)/ mcL ABSOL [place] EOSIN OPHIL 0.04 0.00 - 0.40 10(3) /mcL 06/22 11:07 AM POOLROOM TABLE 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 Not Available Not Available 09/21/2024 15:22:53 06/22/2006/22/2024 CBC W Auto Diffe renti al panel - Blood basophils [#/volume] in blood by automated count 0.03 text: 0.00 - 0.10 10(3)/ mcL ABSOL [place] BASOP HILS 0.03 0.00 - 0.10 10(3) /mcL 06/22 11:07 AM POOLROOM TABLE [facility] [employer] Not Available Not Available 09/21/2024 15:22:53 06/22/2006/22/2024 CBC W Auto Diffe renti al panel - Blood nucleated erythrocytes /100 leukocytes [ratio] in blood 0 NRBC PER 100 WBC 0 06/22 11:07 AM POOLROOM TABLE [facility] [employer] Not Available Not Available 09/21/2024 15:22:53 06/22/2006/22/2024 CBC W Auto Diffe renti al panel - Blood interpretati on and review of laboratory results Abnorm al Not Available Not Available 15:22:53 06/22/2006/22/2024 Fibri n D-dim er FEU [Mass /volu me] in Plate let poor plasm a fibrin D-dimer feu [mass/volume ] in platelet poor plasma text: <0.50 mcg/mL feu D DIMER <=0.2 7 <0.50 mcg/m L FEU 06/22 11:24 AM [facility] Not Available Not Available 09/21/2024 15:22:53 06/22/2006/22/2024 Fibri n D-dim er FEU [Mass /volu me] in Plate let poor plasm a Unknown Analyte The FDA has approv ed this method to exclud e the diagno sis of DVT and/or PE at the cutoff value of <0.50 mcg/mL FEU. The FDA has appro lamont this metho d to exclu de the diagn osis of DVT and/o r PE at the cutof f value of <0.50 mcg/m L FEU. Not Available Not Available 09/21/2024 15:22:53 06/22/2006/22/2024 Fibri n D-dim er FEU [Mass /volu me] in Plate let poor plasm a interpretati on and review of laboratory results Normal Not Available Not Available 08/30 15:22:53 06/22/2006/22/2024 Compr ehens jaime metab olic 1999 panel - Serum or Plasm a sodium [moles/volum e] in serum or plasma 139 mmol/ L low: 136mmo l/Lhig h: 145mmo l/L SODIU M 139 136 - 145 mmol/ L 06/22 11:27 AM POOLROOM TABLE [facility] Not Available Not Available 09/21/2024 15:22:53 06/22/2006/22/2024 Compr ehens jaime metab olic 1999 panel - Serum or Plasm a potassium [moles/volum e] in serum or plasma 3.7 mmol/ L low: 3.5mmo l/Lhig h: 5.1mmo l/L POTAS SIUM 3.7 3.5 - 5.1 mmol/ L 06/22 11:27 AM POOLROOM TABLE [facility]ENDANT [facility] Not Available Not Available 09/21/2024 15:22:53 06/22/2006/22/2024 Compr ehens jaime metab olic 1999 panel - Serum or Plasm a chloride [moles/volum e] in serum or plasma 101 mmol/ L low: 98mmol /Lhigh : 107mmo l/L CHLOR KAYLA 101 98 - 107 mmol/ L 06/22 11:27 AM POOLROOM TABLE [facility] Not Available Not Available 09/21/2024 15:22:53 06/22/2006/22/2024 Compr ehens jaime metab olic 1999 panel - Serum or Plasm a carbon dioxide, total [moles/volum e] in serum or plasma 27 mmol/ L low: 22mmol /Lhigh : 30mmol /L CO2, VENOU S 27 22 - 30 mmol/ L 06/22 11:27 AM POOLROOM TABLE [facility] Not Available Not Available 09/21/2024 15:22:53 06/22/20 24 06/22/2024 Compr ehens jaime metab olic 1999 panel - Serum or Plasm a anion gap in serum or plasma 14.7 mmol/ L high: 18mmol /L ANION GAP 14.7 <18.0 mmol/ L 06/22 11:27 AM POOLROOM TABLE [facility] Not Available Not Available 09/21/2024 15:22:53 06/22/2006/22/2024 Compr ehens jaime metab olic 1999 panel - Serum or Plasm a glucose [mass/volume ] in serum or plasma 84 mg/dL low: 70mg/d Lhigh: 99mg/d L GLUCO SE 84 70 - 99 mg/dL 06/22 11:27 AM POOLROOM TABLE [facility] Not Available Not Available 09/21/2024 15:22:53 06/22/20 24 06/22/2024 Compr ehens jaime metab olic 1999 panel - Serum or Plasm a urea nitrogen [mass/volume ] in serum or plasma 12 mg/dL low: 5mg/dL high: 18mg/d L BUN 12 5 - 18 mg/dL 06/22 11:27 AM [facility] Not Available Not Available 09/21/2024 15:22:53 06/22/20 24 06/22/2024 Compr ehens jaime metab olic 1999 panel - Serum or Plasm a creatinine [mass/volume ] in serum or plasma 0.78 mg/dL low: 0.6mg/ dLhigh : 1mg/dL CREAT ININE , BLOOD 0.78 0.60 - 1.00 mg/dL 06/22 11:27 AM [facility] Not Available Not Available 09/21/2024 15:22:53 06/22/20 24 06/22/2024 Compr ehens jaime metab olic 2000 panel - Serum or Plasm a urea nitrogen/cre atinine [mass ratio] in serum or plasma 15 text: 12 - 20 ratio BUN/C REATI NINE RATIO 15 12 - 20 ratio 06/22 11:27 AM POOLROOM TABLE 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 [employer] Not Available Not Available 09/21/2024 15:22:53 06/22/20 24 06/22/2024 Compr ens jaime metab olic 1999 panel - Serum or Plasm a protein [mass/volume ] in serum or plasma 6.9 g/dL low: 6.3g/d Lhigh: 8.2g/d L TOTAL PROTE IN 6.9 6.3 - 8.2 g/dL 06/22 11:27 AM POOLROOM TABLE [facility] [employer] [facility] Not Available Not Available 09/21/2024 15:22:53 06/22/2006/22/2024 Compr 41st Parameterens jaime metab olic 1999 panel - Serum or Plasm a albumin [mass/volume ] in serum or plasma 4 g/dL low: 3.5g/d Lhigh: 5g/dL ALBUM IN 4.0 3.5 - 5.0 g/dL 06/22 11:27 AM POOLROOM TABLE 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 [employer] [facility] Not Available Not Available 09/21/2024 15:22:53 06/22/2006/22/2024 Compr 41st Parameterens jaime metab olic 1999 panel - Serum or Plasm a albumin/glob ulin [mass ratio] in serum or plasma 1.4 low: 1high: 2.2 A/G RATIO 1.4 1.0 - 2.2 06/22 11:27 AM POOLROOM TABLE 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 [employer] [facility] Not Available Not Available 09/21/2024 15:22:53 06/22/20 24 06/22/2024 Compr 41st Parameterens jaime metab olic 1999 panel - Serum or Plasm a calcium [mass/volume ] in serum or plasma 9.4 mg/dL low: 8.7mg/ dLhigh : 10.5mg /dL CALCI UM 9.4 8.7 - 10.5 mg/dL 06/22 11:27 AM POOLROOM TABLE ATTENDANT [facility] LAB Not Available Not Available 09/21/2024 15:22:53 06/22/2006/22/2024 Compr ehens jaime metab olic 1999 panel - Serum or Plasm a bilirubin.to luly [mass/volume ] in serum or plasma 0.4 mg/dL low: 0.2mg/ dLhigh : 1.2mg/ dL T BILI 0.4 0.2 - 1.2 mg/dL 06/22 11:27 AM [facility] LAB Not Available Not Available 09/21/2024 15:22:53 06/22/20 24 06/22/2024 Compr ehens jaime metab olic 1999 panel - Serum or Plasm a aspartate aminotransfe rase [enzymatic activity/vol ume] in serum or plasma 18 U/L low: 5U/Lhi gh: 34U/L SGOT (AST) 18 5 - 34 U/L 06/22 11:27 AM [facility] Not Available Not Available 09/21/2024 15:22:53 06/22/20 24 06/22/2024 Compr ehens jaime metab olic 2000 panel - Serum or Plasm a alanine aminotransfe rase [enzymatic activity/vol ume] in serum or plasma 15 U/L low: 0U/Lhi gh: 55U/L SGPT (ALT) 15 0 - 55 U/L 06/22 11:27 AM [facility] Not Available Not Available 09/21/2024 15:22:53 06/22/20 24 06/22/2024 Compr ehens jaime metab olic 2000 panel - Serum or Plasm a alkaline phosphatase [enzymatic activity/vol ume] in serum or plasma 66 U/L low: 40U/Lh igh: 150U/L ALKAL INE PHOSP HATAS E 66 40 - 150 U/L 06/22 11:27 AM [facility] Not Available Not Available 09/21/2024 15:22:53 06/22/20 24 06/22/2024 Compr ehens jaime metab olic 2000 panel - Serum or Plasm a glomerular filtration rate/1.73 sq M.predicted among non-blacks [volume rate/area] in serum, plasma or blood by creatinine-b ased formula (MDRD) low: 60 GFR, ESTIM ATED >60 >=60 06/22 11:27 AM POOLROOM TABLE [facility] Not Available Not Available 09/21/2024 15:22:53 06/22/20 24 06/22/2024 Compr ehens jaime metab olic 2000 panel - Serum or Plasm a glomerular filtration rate/1.73 sq M.predicted among blacks [volume rate/area] in serum, plasma or blood by creatinine-b ased formula (MDRD) low: 60 GFR, EST. AFRIC AN >60 >=60 06/22 11:27 AM POOLROOM TABLE [facility] Not Available Not Available 09/21/2024 15:22:53 06/22/20 24 06/22/2024 Compr ehens jaime metab olic 2000 panel - Serum or Plasm a glomerular filtration rate/1.73 sq M.predicted among non-blacks [volume rate/area] in serum, plasma or blood by creatinine-b ased formula (MDRD) low: 60 GFR, EST. NONAF RICAN >60 >=60 06/22 11:27 AM POOLROOM TABLE [facility] Not Available Not Available 09/21/2024 15:22:53 06/22/20 24 06/22/2024 Compr ehens jaime metab olic 2000 panel - Serum or Plasm a interpretati on and review of laboratory results Normal Not Available Not Available 08/30 15:22:53 08/06/1908/10/2024 IGP, RFX APTIM A HPV ASCU diagnosis: COMMEN T NEGAT JAIME FOR INTRA EPITH ELIAL VINI Maciel OR GINA GARG . CELLU KARLEY WILLOUGHBY ES ASSOC IATED WITH INFLA MMATI ON ARE PRESE NT. Not Available [facility] ([facility]) [address] [facility], [place], [address], 08/10/2024 11:10:59 08/06/1908/10/2024 IGP, RFX APTIM A HPV ASCU specimen adequacy: BRYAN Griffiths Satis facto ry for evalu ation . No endoc ervic al compo nent is ident ified . Not Available [facility] ([facility]) [address] [place], [address], 08/10/2024 11:10:59 08/06/19 25 08/10/2024 IGP, RFX APTIM A HPV ASCU clinician provided ICD10: BRYAN Griffiths Z01.4 19 Not Available [facility] ([facility]) [address] [place], [address], 08/10/2024 11:10:59 08/06/19 25 08/10/2024 IGP, RFX APTIM A HPV ASCU performed by: Siria Peña visor y Cytot caitlin griffiths (ASCP ) Not Available [facility] ([facility]) [address] [place], [address], 08/10/2024 11:10:59 08/06/19 25 08/10/2024 IGP, RFX APTIM A HPV ASCU . . Not Available [facility] ([facility]) [address] [place], [address], 08/10/2024 11:10:59 08/06/19 25 08/10/2024 IGP, RFX APTIM A HPV ASCU note: BRYAN Griffiths The Pap smear is a scree apoorva test desig marcos to aid in the detec tion of ludwig ligna nt and malig nant condi tions of the uteri ne cervi x. It is not a diagn ostic proce dure and shoul d not be used as the sole means of detec ting cervi jignesh cance r. Both false -posi tive and false -nega tive repor ts do occur . Not Available [facility] ([facility]) [address] [place], [address], 08/10/2024 11:10:59 08/06/19 25 08/10/2024 IGP, RFX APTIM A HPV ASCU test methodology: COMMEN T This liqui d based ThinP rep(R ) pap test was giana rodríguez with the use of an image guide jakob burkett Not Available [facility] ([facility]) [address] [facility], [place], [address], 08/10/2024 11:10:59 08/06/19 25 08/10/2024 IGP, RFX APTIM A HPV ASCU . COMMEN T The HPV DNA refle x crite hunter were not met with this speci men resul t there fore, no HPV testi ng was perfo rmed. Not Available [facility] ([facility]) [address] [facility], [place], [address], 08/10/2024 11:10:59 Result Notes None recorded. Problems Name Problem SNOMED Code Status Onset Date Resolution Date Notes Provider Name and Address Organization Details Recorded Time Kidney stone 45544793 Active 2018 -seeing urologist / Us 05/20 -r/mild hydroneph rosis Paulie Macias MD Attn: Lin herron,[address] [place], [address], [facility] - SIF 4 14:29:41 Hyperlip idemia 28229626 Active 2022 Paulie Macias MD Attn: Lin herron,[address] [place], [address], [place] - [facility] 3 14:40:48 Low back pain 494836504 Active 2022 Paulie Macias MD Attn: Lin herron,[address] [place], [address], [facility] - SIF 3 08:55:28 Headache 22216481 Active MRI 01/2021- ok-sees neuro Paulie Macias MD Attn: Lin herron,[address] [place], [address], [facility] - SIF 3 08:43:07 Neurofib romatosi s Active Paulie Macias MD Attn: Lin herron,[address] [facility], [place], [address], [facility] - [facility] 2 12:35:31 Elevated blood-pr essure reading without diagnosi s of hyperten raul [id number] Completed 08/20/2016 Paulie Macias MD Attn: Lin herron,[address] [facility], [place], [address], [facility] - [facility] 7 16:18:28 Backache 044289146 Active Paulie Macias MD Attn: Lin herron,[address] [facility], [place], [address], [facility] - [facility] 2 12:35:31 [facility] hyperten raul 40143601 Active 2016 Paulie Macias MD Attn: Lin herron,[address] [facility], [place], [address], [facility] - [facility] 2 12:35:31 Mixed anxiety and depressi ve disorder 607118595 Active 2016 Paulie Macias MD Attn: Lin herron,[address] [facility], [place], [address], [facility] - [facility] 2 12:35:31 Problem Notes None recorded. Procedures Surgical History Date Name Laterality Status Provider Name and Address Organization Details Recorded Time 5 Date of Last Pap Smear completed Yudith Miranda RN [facility] 08/10/2024 11:14:50 9 Colposcopy completed Jacinta Wadsworth MD Attn: Accounting,[address] [facility], [place], [address], [facility] 06/08/2019 14:55:53 0 Tubal Ligation completed Yudith Miranda RN [facility] 03/09/2015 15:13:05 Caesarean Section completed Yudith Miranda RN [facility] 03/09/2015 15:13:05 Imaging Results None recorded. Procedure Notes None recorded. Medical Equipment None Reported. Allergies Allergen ID Allergen Name Allergen Category Reaction Reaction Severity Criticality Documentation Date Start Date Code Code System Note Provider Name and Address Organization Details Recorded Time 343002 Cymbalta medicatio n abdominal pain severe Not available 03/23/20192018 82411 4 RxNorm Not Available Not Available Not Available 02673 peanut allergeni c extract food,medi cation other severe Not available 10/22/2014 91612 8 RxNorm sores in mouth Not Available Not Available Not Available Medications Name Sig Start Date Stop Date Status Note LastModified by Organization Details LastModified Time Prescript ion - Renewal active Not Available Not Available Not Available cyclobenz aprine 10 mg tablet TAKE 1 TABLET BY MOUTH ONCE DAILY AT BEDTIME 08/03 completed Not Available Not Available Not Available amoxicill in 500 mg capsule TAKE 1 CAPSULE BY MOUTH EVERY 8 HOURS FOR 10 DAYS 11/07 completed Not Available Not Available Not Available venlafaxi ne ER 75 mg capsule,e xtended release 24 hr TAKE 1 CAPSULE BY MOUTH ONCE DAILY 10/27 completed Not Available Not Available Not Available trazodone 50 mg tablet TAKE 1 TABLET BY MOUTH AT BEDTIME 03/17 completed pt does not take Not Available Not Available Not Available cetirizin e 10 mg tablet TAKE 1 TABLET BY MOUTH ONCE DAILY active Not Available Not Available No t Available azithromy yasmeen 250 mg tablet TAKE 2 TABLETS (500 MG) BY ORAL ROUTE ONCE DAILY FOR 1 DAY THEN 1 TABLET (250 MG) BY ORAL ROUTE ONCE DAILY FOR 4 DAYS 10/19 completed Not Available Not Available Not Available Prozac 40 mg capsule Take 1 capsule every day by oral route. 2017 active Not Available Not Available Not Avai lable fluconazo le 150 mg tablet TAKE 1 TABLET BY MOUTH DIRECTED FOR 1 DAY AFTER THE COMPLETI ON OF THE WEEK OF ANTIBIOT ICS 11/27 completed Not Available Not Available Not Available benzonata te 200 mg capsule TAKE 1 CAPSULE BY MOUTH THREE TIMES DAILY 11/07 completed Not Available Not Available Not Available sumatript an 100 mg tablet prn 11/25 completed Not Available Not Available Not Available hydrocodo ne 5 mg-acetam inophen 325 mg tablet 04/16 completed Not Available Not Available Not Available prochlorp erazine maleate 5 mg tablet TAKE 1 TO 2 TABLETS BY MOUTH EVERY 6 HOURS NEEDED FOR HEADACHE active Not Available Not Available No t Available meloxicam 15 mg tablet TAKE 1 TABLET BY MOUTH ONCE DAILY NEEDED WITH MEAL FOR PAIN 03/17 completed Not Available Not Available Not Available phenazopy ridine 200 mg tablet TAKE 1 TABLET BY MOUTH TWICE DAILY FOR 3 DAYS 08/03 completed Not Available Not Available Not Available rizatript an 10 mg tablet TAKE 1 TABLET BY MOUTH ONCE NEEDED FOR HEADACHE S. MAY REPEAT IN 2 HOURS IF NEEDED. active Not Available Not Available No t Available valsartan 160 mg-hydroc hlorothia zide 12.5 mg tablet TAKE 1 TABLET BY MOUTH ONCE DAILY active Not Available Not Available No t Available verapamil ER (SR) 180 mg tablet,ex tended release TAKE 1 TABLET BY MOUTH ONCE DAILY 01/01 completed Not Available Not Available Not Available naproxen 250 mg tablet 04/16 completed Not Available Not Available Not Available clindamyc in HCl 150 mg capsule 04/16 completed Not Available Not Available Not Available venlafaxi ne ER 150 mg capsule,e xtended release 24 hr TAKE 1 CAPSULE BY MOUTH ONCE DAILY active Not Available Not Available No t Available topiramat e 25 mg tablet Take 1 tablet twice a day by oral route. 02/24 completed not taking Not Available Not Available Not Available metronida zole 500 mg tablet TAKE 1 TABLET BY MOUTH TWICE DAILY WITH FOOD FOR 7 DAYS 12/30 completed Not Available Not Available Not Available propranol ol 60 mg tablet TAKE 1 TABLET BY MOUTH TWICE DAILY 01/27 completed Not Available Not Available Not Available ciproflox acin 500 mg tablet 03/17 completed Not Available Not Available Not Available tramadol 50 mg tablet 04/16 completed Not Available Not Available Not Available butalbita l-acetami nophen-ca ffeine 50 mg-325 mg-40 mg tablet active Not Available Not Available Not Available amoxicill in 500 mg tablet Take 1 tablet 3 times a day by oral route for 7 days. 01/06 completed Not Available Not Available Not Available nortripty line 25 mg capsule TAKE 1 CAPSULE BY MOUTH ONCE DAILY AT BEDTIME 11/25 completed not taking Not Available Not Available Not Available propranol ol 40 mg tablet TAKE 1 TABLET BY MOUTH TWICE DAILY active Not Available Not Available No t Available amoxicill in 875 mg tablet TAKE 1 TABLET BY MOUTH TWICE DAILY UNTIL GONE 11/27 completed Not Available Not Available Not Available metoclopr amide 5 mg tablet TAKE 1 TABLET BY MOUTH TWICE DAILY NEEDED FOR NAUSEA 1ST LINE 08/30 completed Not Available Not Available Not Available cephalexi n 500 mg capsule Take 1 capsule 3 times a day by oral route for 10 days. 10/27 completed Not Available Not Available Not Available prednison e 50 mg tablet 09/25 completed Not Available Not Available Not Available omeprazol e 20 mg capsule,d elayed release TAKE 1 CAPSULE BY MOUTH ONCE DAILY BEFORE A MEAL active Not Available Not Available No t Available hydroxyzi ne HCl 25 mg tablet TAKE 1 TABLET BY MOUTH TWICE DAILY FOR 10 DAYS 02/12 completed Not Available Not Available Not Available ibuprofen 600 mg tablet TAKE 1 TABLET BY MOUTH TWICE DAILY WITH MEALS 02/15 completed Not Available Not Available Not Available levofloxa yasmeen 500 mg tablet Take 1 tablet every 24 hours by oral route for 7 days. 03/17 completed Not Available Not Available Not Available methylpre dnisolone 4 mg tablets in a dose pack TAKE BY MOUTH DIRECTED ON INSIDE OF PACKAGE 04/18 completed Not Available Not Available Not Available rizatript an 5 mg disintegr ating tablet DISSOLVE 1 TABLET IN MOUTH ONCE NEEDED FOR MIGRAINE HEADACHE 04/18 completed Not Available Not Available Not Available cefdinir 300 mg capsule TAKE 1 CAPSULE BY MOUTH TWICE DAILY FOR 7 DAYS 02/12 completed Not Available Not Available Not Available topiramat e 100 mg tablet TAKE 1 TABLET BY MOUTH IN THE MORNING AND 1/2 (ONE-JOSELINE F) TABLET IN THE EVENING 05/18 completed Not Available Not Available Not Available fluoxetin e 20 mg capsule TAKE 2 CAPSULES BY MOUTH DAILY 03/17 completed Not Available Not Available Not Available amoxicill in 875 mg-potass ium clavulana te 125 mg tablet 06/11 completed Not Available Not Available Not Available Ventolin HFA 90 mcg/actua tion aerosol inhaler Inhale 2 puffs 3 times a day by inhalati on route. 03/17 completed Not Available Not Available Not Available escitalop milly 10 mg tablet Take 1 tablet every day by oral route. 01/06 completed 01/07/20 20-pt d/c due to dizzines s Not Available Not Available Not Available Sprintec (28) 0.25 mg-0.035 mg tablet Take 1 tablet every day by oral route. 01/06 completed 01/07/20 20 pt d/c kept forgetti ng to take it so she just decided to d/c Not Available Not Available Not Available bupropion HCl XL 150 mg 24 hr tablet, extended release Take 1 tablet by mouth once daily 2024 active Not Available Not Available Not Avai lable topiramat e 50 mg tablet TAKE 1 TABLET BY MOUTH TWICE DAILY 02/15 completed neuro Not Available Not Available Not Available nitrofura ntoin monohydra te/macroc rystals 100 mg capsule TAKE 1 CAPSULE BY MOUTH EVERY 12 HOURS FOR 5 DAYS 08/03 completed Not Available Not Available Not Available duloxetin e 60 mg capsule,d elayed release Take 1 capsule every day by oral route. 03/23 completed stomacha juan Not Available Not Available Not Available Gui 24 Fe 1 mg-20 mcg (24)/75 mg (4) tablet TAKE 1 TABLET BY MOUTH ONCE DAILY active Not Available Not Available No t Available Aimovig Autoinjec tor 70 mg/mL subcutane ous auto-inje ctor INJECT 1 PEN SUBCUTAN EOUSLY ONCE EVERY 30 DAYS. 05/17 completed neuro Not Available Not Available Not Available Ajovy 225 mg/1.5 mL subcutane ous auto-inje ctor INJECT 1 SYRINGE ONCE EVERY 30 DAYS 08/03 completed Not Available Not Available Not Available Vitals Date Recorded Body height Body mass index (BMI) Body weight Heart rate Respiratory rate Body temperature Oxygen saturation Oxygen saturation in Arterial blood by Pulse oximetry Systolic blood pressure Diastolic blood pressure Provider Name and Address Organization Details Last Updated DateTime 4 157.48 cm 26 kg/m2 36951.1 9 g 97 /min 14 /min 98.4 [degF] 97 % 97 % 123 mm[Hg] 89 mm[Hg] Ewelina Hannah MA [facility] 4 09:35:45 Date Recorded Body height Body mass index (BMI) Body weight Heart rate Respiratory rate Body temperature Oxygen saturation Oxygen saturation in Arterial blood by Pulse oximetry Systolic blood pressure Diastolic blood pressure Provider Name and Address Organization Details Last Updated DateTime 4 157.48 cm 25.7 kg/m2 84835.4 5 g 92 /min 14 /min 97.8 [degF] 97 % 97 % 126 mm[Hg] 89 mm[Hg] Britt Chapin MA [facility] 4 09:40:34 Date Recorded Body height Body mass index (BMI) Body weight Heart rate Respiratory rate Body temperature Oxygen saturation Oxygen saturation in Arterial blood by Pulse oximetry Systolic blood pressure Diastolic blood pressure Provider Name and Address Organization Details Last Updated DateTime 4 157.48 cm 25.7 kg/m2 15619.3 7 g 100 /min 16 /min 97.8 [degF] 99 % 99 % 128 mm[Hg] 88 mm[Hg] Britt Chapin MA [facility] 4 12:11:50 Date Recorded Body height Body mass index (BMI) Body weight Systolic blood pressure Diastolic blood pressure Provider Name and Address Organization Details Last Updated DateTime 08/06/2024 157.48 cm 25.8 kg/m2 70597.81 g 136 mm[Hg] 97 mm[Hg] SANDRA Gaviria [facility] 5 10:37:11 Social History Question Answer Notes LastModified by Organizat ion Details LastModified Time Tobacco Smoking Status Never Smoker EMMANUEL Lira, [facility] 10/22/2014 14:59:57 Do You Have An Advance Directive? No Information not available 12/25/2019 What Is Your Level Of Alcohol Consumption? None [email or web address] Information not available 10/22/2014 Are You Blind Or Do You Have Difficulty Seeing? Yes Glasses Information not available 06/13/2021 What Is Your Level Of Caffeine Consumption? None Quit Caffiene 01/01 [email or web address] Information not available 01/01/2022 How Much Tobacco Do You Chew? None Information not available 05/21/2016 In The 14 Days Before Symptom Onset, Have You Had Close Contact With A Laboratory-confi rmed COVID-19 While That Case Was Ill? No Information not available 10/27/2019 In The 14 Days Before Symptom Onset, Have You Had Close Contact With A Person Who Is Under Investigation For COVID-19 While That Person Was Ill? No Information not available 10/27/2019 Have You Been To An Area Known To Be High Risk For COVID-19? No Information not available 10/27/2019 Are You Currently Employed? Yes [email or web address] Information not available 11/25/2020 Are You Deaf Or Do You Have Serious Difficulty Hearing? No [email or web address] Information not available 11/25/2020 What Type Of Diet Are You Following? REGULAR Information not available 05/21/2016 Which Illicit Or Recreational Drugs Have You Used? Denies Information not available 05/21/2016 Do You Or Have You Ever Used E-cigarettes Or Vape? Never Used Electronic Cigarettes Information not available 10/27/2019 Education 12 Information no t available 02/11/2017 What Is The Highest Grade Or Level Of School You Have Completed Or The Highest Degree You Have Received? 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 No Information not available 10/27/2019 Hard Of Hearing Or Deaf In One Or Both Ears? No Information not available 12/25/2019 Legally Blind In One Or Both Eyes? No Information not available 12/25/2019 Marital Status Informatio n not available 05/21/2016 What Was The Date Of Your Most Recent Tobacco Screening? 08/03/2024 [email or web address] Information not available 08/03/2024 Performs Monthly Self-breast Exam? No Information not available 12/25/2019 What Is Your Relationship Status? Information not available 06/13/2021 Do You Use Your Seat Belt Or Car Seat Routinely? Yes Information not available 05/18/2022 Seat Belts Used Routinely Yes Information not available 10/27/2019 Smoke Alarm In Home Yes Information not available 10/27/2019 Do You Have Smoke And Carbon Monoxide Detectors In Your Home? Yes [email or web address] Information not available 11/25/2020 Do You Or Have You Ever Used Smokeless Tobacco? Never Used Smokeless Tobacco Information not available 10/27/2019 How Much Tobacco Do You Smoke? No Information not available 10/27/2019 General Stress Level High Information not available 10/27/2019 Do You Feel Stressed (tense, Restless, Nervous, Or Anxious, Or Unable To Sleep At Night)? [id number] Information not available 11/21/2023 Do You Use Any Illicit Or Recreational Drugs? No [email or web address] Information not available 01/27/2021 Do You Use Sunscreen Routinely? Yes Information not available 10/27/2019 Has Tobacco Cessation Counseling Been Provided? No [email or web address] Information not available 06/02/2021 Do You Or Have You Ever Used Any Other Forms Of Tobacco Or Nicotine? No [email or web address] Information not available 11/25/2020 Sex: Female Functional Status Question Answer Note LastModified by Organization D etails LastModified Time Are you able to care for yourself? Yes [email or web address] Information not available 11/25/2020 What is your exercise level? None walking Information not available 06/13/2021 Mental Status None recorded. Family History Relationship Description Onset Age of this Age Resolved Age Notes LastModified by Organization Details LastModified Time Mother History of hypertension Not available 15:58:26 Mother Family history of neurofibroma tosis Not available 2016 15:59:25 Notes:no breast ca hx Medical History Condition Response Coronary Artery Disease N Atrial Fibrillation N High Blood Pressure Y Depression Y COPD N Blood Clots N Anxiety Disorder Y Muscle, Joint, or Bone Problems N Acid Reflux (GERD) N Cancer N Stroke N Headaches Y Kidney or Bladder Problems N Skin Problems N Urinary Tract Infection Y Asthma Y Allergies Y Hepatitis N High Cholesterol N Liver Disease N Thyroid Problems N GI Problems N Anemia N Heart Attack (MD) N Diabetes N Seizures/Epilepsy N Heart Failure N Gynecological History Statement/Question Response Abnormal Pap Y Flow Moderate Date of LMP 08/06/2024 STIs/STDs Yes Duration of Flow (days) 2 Age at Menarche 16 Current Control Method Tubal Ligat ion Age at First Child 21 Menses Monthly Y Date of Last Pap Smear 08/06/2024 Sexual Problems? N LMP Unknown Obstetrics History GPAL:G 2 P 2 0 0 2 Type Value Full Term 2 Living 2 Total 2 Immunizations Vaccine Type Date Status Note Provider Nam e and Address Organization Details Recorded Time COVID-19, mRNA, LNP-S, PF, 30 mcg/0.3 mL dose 1 completed Ewelina Hannah [place], [place] [facility] 07/04/2021 14:52:37 COVID-19, mRNA, LNP-S, PF, 30 mcg/0.3 mL dose 1 completed Afshan Kasper RMA [place], [place] [facility] 06/06/2022 16:39:23 HPV, quadrivalent 3 completed Afshan Kasper R[place], [place] [facility] 06/06/2022 16:39:23 Influenza, split virus, quadrivalent, preservative 5 completed Afshan Kasper, R[place] [facility] 06/06/2022 16:39:23 HPV, quadrivalent 3 completed Afshan Kasper R[place] [facility] 06/06/2022 16:39:23 Hep A, adult 3 completed Afshan Kasper R[place] [facility] 06/06/2022 16:39:23 Tdap 3 completed Afshan Kasper R[place] [facility] 06/06/2022 16:39:23 Influenza, split virus, quadrivalent, preservative 6 completed Not Available [facility] 08/15/2019 02:44:48 Tdap 7 completed [facility] Available [facility] 08/15/2019 02:40:22 Past Encounters Encounter ID Performer Location Encounter Start Date Encounter Closed Date Diagnosis/Indication Diagnosis SNOMED-CT Code Diagnosis ICD10 Code Diagnosis Note [id number] EMMANUEL Lira (Adult Med) [address] [place] [address] 10/22/2014 14:32:40 10/22/2014 16:50:50 Headache [id number] chronic NAQVI- was seeing neuro, missed f/u Ran out Topamax Restart med pt also under lots of stress- consider antidepres dulce maria if problem persists Elevated blood-pressure reading without diagnosis of hypertension 277994336 Start Propranolo l which helps with NAQVI as well [id number] [facility] [address] [place] [address] 11/05/2014 13:59:00 11/05/2014 14:43:50 Headache 70392829 chronic NAQVI- was seeing neuro, missed f/u Continue Topamax/ Propranolo l pt also under lots of stress- consider antidepres dulce maria if problem persists Elevated blood-pressure reading without diagnosis of hypertension 587219488 continue Propranolo l which helps with NAQVI as well [id number] Hardy Caceres ([facility] 205) [address] [facility] [address] [place] [address] 04/01/2015 13:55:49 04/01/2015 14:33:39 Gynecologic examination [id number] [facility] [address] [place] [address] 04/25/2015 10:41:31 04/25/2015 11:23:26 Headache 02137306 chronic NAQVI- seeing neuro Continue Topamax/ Propranolo l pt also under lots of stress- consider antidepres dulce maria if problem persists Administra tion of influenza vaccine 51777000 Backache 419835716 [id number] [facility] [address] [place] [address] 05/21/2016 16:26:16 05/22/2016 11:49:49 Headache 41584672 R51 chronic NAQVI-pt stopped seeing neuro Continue Topamax/ Propranolo l pt also under lots of stress due to recent separation from her Administra tion of influenza vaccine 59839068 Z23 Mixed anxi ety and depressive disorder 508361108 F41.8 pt declined meds /counselli ng observe without meds Adult heal th examination 818518371 Z00.01 healthy diet and exercise discussed with pt [id number] Jacinta Wadsworth MD [facility] ([facility] 205) [address] [facility] [address] [place] [address] 06/29/2016 10:30:00 06/29/2016 11:59:28 Gynecologic examination 54877842 Z01.349 [id number] MD Erica Ninohalto (Adult Med) [address] [place] [address] 08/20/2016 14:57:05 08/20/2016 17:12:52 Headache 30256239 R51 chronic NQAVI Continue Topamax/ Propranolo l Acute bronchitis 0674207 2 J20.9 increase fluid Essential hypertension 71246344 I10 elevated due to noncomplia nt with medpt to restart propranolo l [id number] [facility] [address] [facility] [place] [address] 10/19/2016 09:18:37 10/19/2016 11:54:45 Headache 67627793 R51 chronic NAQVI Continue Topamax/ Propranolo l Essential hypertension 98665517 I10 improvingp t to continue propranolo l Administra tion of diphtheria, pertussis, and tetanus vaccine 767077305 Z23 Acute bronchitis 6647686 2 J20.9 increase fluid [id number] [facility] ([facility] [address] [place] [address] 01/18/2017 10:14:31 01/18/2017 16:04:57 Mixed anxiety and depressive disorder 114208440 F41.8 start pt on Prozac dailypt to make apt with counsellor [id number] [facility] [address] [place] [address] 02/11/2017 14:14:09 02/11/2017 16:32:54 Essential hypertension 37929177 I10 improvingp t to continue propranolo l Mixed anxi ety and depressive disorder 746984020 F41.8 Improvingc ontinue Prozac daily Headache 25585888 R51 stable Continue Topamax/ Propranolo l [id number] MD Erica Ninohalto (Adult Med) [address] [place] [address] 03/13/2017 08:46:12 03/18/2017 15:30:56 Mixed anxiety and depressive disorder 901015965 F41.8 pt to increase Prozac dailypt to see counsellor [id number] Jacinta Wadsworth MD [facility] ([facility] 205) [address] [facility] [address] [place] [address] 07/01/2017 15:07:36 07/02/2017 10:28:09 Body mass index 25-29 - overweight 542443074 Z68.29 Gynecologi c examination 19240699 Z01.471 [id number] MD Jaclyn Nino (Adult Med) [address] [place] [address] 09/25/2017 14:45:19 09/25/2017 16:54:22 Headache 16332559 R51 Not well controlled due to noncomplia nt with med pt to restart Topamax/ Propranolo l Mixed anxi ety and depressive disorder 259168043 F41.8 pt to restart Prozac daily Essential hypertension 25431317 I10 not well controlled pt to restart propranolo l [id number] MD Erica Ninohalto (Adult Med) [address] [place] [address] 11/25/2017 14:38:07 11/26/2017 08:52:17 Mixed anxiety and depressive disorder 841985344 F41.8 pt to increase Prozac 40 mg daily Essential hypertension 15438950 I10 fair controlpt to continue propranolo l Headache 34626203 R51 fair control pt to increase Topamax continue Propranolo l Low back pain 040057985 M54.5 heat therapy [id number] MD Jaclyn Nino (Adult Med) [address] [place] [address] 02/24/2018 15:39:16 02/24/2018 17:08:48 Essential hypertension 77392621 I10 stablept to continue propranolo l Headache 21991797 R51 stable pt to continue Topamax 50mg bid continue Propranolo l Mixed anxi ety and depressive disorder 219037742 F41.8 not well controlled due to noncomplia nt with medpt to restart Prozac 20 mg daily for a wk and then increase to 40 mg daily [id number] [facility] [address] [facility] [place] [address] 04/16/2018 09:13:49 04/17/2018 10:35:10 Essential hypertension 03019516 I10 stablept to continue propranolo l Headache 45617011 R51 not well controlled pt to increase Topamax 50mg 2 tab am and 1 tab pm Increase Propranolo l 60 mg bid Mixed anxi ety and depressive disorder 267008058 F41.8 Improvingp t to restart Prozac 40 mg dailyAdd Trazodone for sleep [id number] MD [facility] [address] [facility] [place] [address] 06/11/2018 08:02:50 06/11/2018 14:06:33 Acute bronchitis 14921543 J20.9 check cxr to r/o pneumoniai ncrease fluid Essential hypertension 52617542 I10 stablept to continue propranolo l Mixed anxi ety and depressive disorder 160374060 F41.8 Improvingp t to continue Prozac 40 mg daily /Trazodone for sleep Headache 41120709 R51 improving pt to continue Topamax 50mg 2 tab am and 1 tab pm continue Propranolo l 60 mg bid [id number] MD Hardy Stre[address] [facility] [address] [place] [address] [address] 09/23/2018 11:06:24 09/23/2018 16:03:05 Gynecologic examination 65401184 Z01.419 Menorrhagia 575227393 N9 2.0 [id number] MD Hardy Streeter 14 OB [address] [facility] [address] [place], [place] [address] [address] 03/10/2019 16:10:51 03/11/2019 11:32:23 Gynecologic examination 02768431 Z01.419 Low grade squamous intraepithelial lesion on cervical Papanicolaou smear 8932204663 9105 R87.407 [id number] MD Jaclyn Nino (Adult Med) [address] [facility] [place] [address] 03/17/2019 12:04:33 03/18/2019 11:01:50 Essential hypertension 62846792 I10 stablept to continue propranolo l Mixed anxi ety and depressive disorder 299653719 F41.8 noncomplia nt with Prozac -wants to try different med -will try cymbalta which helps with pain as well Headache 80202494 R51 noncomplia nt with med pt to continue Topamax continue Propranolo l 60 mg bid [id number] MD Elver Streetern 14 OB [address] [facility] [address] [place] [address] 06/08/2019 14:34:48 06/09/2019 11:53:10 Low grade squamous intraepithelial lesion on cervical Papanicolaou smear 5878596732 9105 R87.080 [id number] [facility] [address] [place] [address] 10/27/2019 11:10:28 10/27/2019 15:59:58 Upper respiratory infection 31621722 J06.9 keep good hydrations raissa home /precautio n Mixed anxi ety and depressive disorder 050521663 F41.8 noncomplia nt with med.-couns elled Headache 52975122 R51 noncomplia nt with med pt to continue Topamax continue Propranolo l 60 mg bid Essential hypertension 92887918 I10 pt to continue propranolo l [id number] [facility] [address] [place] [address] 12/25/2019 08:07:46 12/28/2019 09:12:24 Bilateral earache 798427330 H92.03 with dental pain/soret hroat .keep hydration/ salt water gargle [id number] [facility] [address] [place] [address] 01/07/2020 08:40:02 01/08/2020 05:13:03 Mixed anxiety and depressive disorder 128513609 F41.8 pt stopped lexapro due to dizziness -pt thinks she does not need med at this timemonito r without med Essential hypertension 98613492 I10 pt to continue propranolo l Headache 36577296 R51 improving pt is requesting something to take at night for sleep -will add nortriptyl ine pt to continue Topamax continue Propranolo l 60 mg bid [id number] MD Jaclyn Nino (Adult Med) [address] [place] [address] 11/25/2020 14:22:15 11/26/2020 11:00:20 Essential hypertension 53872953 I10 non compliant with med -counselle d /pt to continue propranolo l Headache 49618475 R51.9 chronic NAQVI- seeing neuro Continue Topamax/ Propranolo l pt also under lots of stress- consider antidepres dulce maria if problem persists Mixed anxi ety and depressive disorder 533093047 F41.8 pt stopped lexapro due to dizziness -pt thinks she does not need med at this timemonito r without med Urinary symptoms 2503726 08 R39.9 keep good hydration / urine dipstick-n eg Low back pain 407049987 M54.5 heat therapy Exercise/ cyclobenza prin hs [id number] MD Jaclyn Nino (Adult Med) [address] [place] [address] 01/27/2021 14:20:41 01/31/2021 12:55:07 Essential hypertension 18207236 I10 pt to discontinu e propranolo l ( avoid b jacobo in this pt)-pt to take verapamil Mixed anxi ety and depressive disorder 952538815 F41.8 pt stopped lexapro due to dizziness - pt to try venlafaxin e Headache 50791012 R51.9 Continue Topamax- pt also under lots of stresspt to see neuro as well 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 Informed pt to see Pulper Tender for early breast cancer screeningR efer to neuro-will screen for pheo with next blood draw Screening mammography 24 521159 Z12.31 [id number] MD Hardy Streeter 14 OB [address] [facility] [address] [place] [address] 06/02/2021 13:40:34 06/05/2021 07:50:57 Gynecologic examination 68544085 Z01.419 Irregular periods 158756 07 N92.6 [id number] MD Jaclyn Nino (Adult Med) [address] [place] [address] 06/13/2021 12:06:22 06/14/2021 10:54:56 Essential hypertension 14251012 I10 pt to discontinu e propranolo l ( avoid b jacobo in this pt)-pt to take verapamil Mixed anxi ety and depressive disorder 776757478 F41.8 (pt stopped lexapro due to dizziness )- pt is feeling better on venlafaxin e Headache 71006763 R51.9 Continue Topamax- pt to f/u with neuro Toothache 34677372 K08.8 9 with gingivitis - pt has apt to see dentist tomorrow-w ill give antibiotic [id number] MD Erica Ninohalto (Adult Med) [address] [place] [address] 10/27/2021 11:56:49 10/29/2021 09:51:05 Essential hypertension 79543122 I10 pt to discontinu e propranolo l ( avoid b jacobo in this pt)-pt to continue verapamil Mixed anxi ety and depressive disorder 294517741 F41.8 (pt stopped lexapro due to dizziness )fair control- pt to increase venlafaxin e 150mg daily Headache 19910662 R51.9 pt to increase Topamax- pt to f/u with neuro -will refer again Low back pain 684888933 M54.50 -exercise /heat therapyadd cyclobenza ena with ibuprofen [id number] [facility] [address] [place] [address] 01/01/2022 10:32:59 01/02/2022 08:29:25 Upper respiratory infection 21359665 J06.9 keep good hydration- benzonante tid prn Essential hypertension 86103072 I10 bp is elevated due to non-compli ant-pt stopped taking verapamil and wants to try different med- pt to start valsartanh ct ( s/p LRT) Mixed anxi ety and depressive disorder 572138990 F41.8 (pt stopped lexapro due to dizziness )fair control- pt to continue venlafaxin e 150mg daily Headache 32391029 R51.9 pt to continue Topamax- pt to f/u with neuro [id number] MD Jaclyn Nino (Adult Med) [address] [place] [address] 02/09/2022 12:19:51 02/12/2022 08:50:41 Essential hypertension 95269790 I10 improving- pt stopped taking verapamil and wants to try different med- pt to continue valsartanh ct ( s/p LRT) Mixed anxi ety and depressive disorder 019877617 F41.8 (pt stopped lexapro due to dizziness )fair control- pt to continue venlafaxin e 150mg daily Headache 63256624 R51.9 pt to continue Topamax- pt to f/u with neuro Hyperlipidemia 82747649 E78.5 healthy diet and exercise discussed with pt [id number] MD Jaclyn Nino (Adult Med) [address] [place] [address] 05/18/2022 14:14:16 05/21/2022 13:13:48 Influenza vaccination declined 350603261 Z28.21 Essential hypertension 31167838 I10 improving- pt stopped taking verapamil and wants to try different med- pt to continue valsartanh ct ( s/p LRT) Mixed anxi ety and depressive disorder 164883722 F41.8 (pt stopped lexapro due to dizziness )fair control- pt to continue venlafaxin e 150mg daily Headache 86919798 R51.9 pt to lower Topamax 50mg bid since pt is loosing wt and low appetite- pt to f/u with neuro Gastritis 7847090 K29.70 with wt loss - pt to see GI for endoscopy- pt to avoid nsaid Tachycardia 1719028 R00. 0 -check labs/ekg - pt is off of verapamil [id number] MD Hardy Streeter 14 OB [address] [facility] [address] [place] [address] 06/29/2022 13:31:40 07/01/2022 15:59:23 Irregular periods 74194714 N92.6 Gynecologi c examination 77920564 Z01.774 [id number] MD Jaclyn Nino (Adult Med) [address] [place] [address] 08/17/2022 10:45:59 08/21/2022 16:17:17 Essential hypertension 15296875 I10 improving- pt stopped taking verapamil- pt to continue valsartanh ct ( s/p LRT) Mixed anxi ety and depressive disorder 936174371 F41.8 (pt stopped lexapro due to dizziness )fair control- pt to continue venlafaxin e 150mg daily Headache 37255638 R51.9 lowered Topamax 50mg bid since pt is loosing wt and low appetite- pt to f/u with neuro Hyperlipidemia 72869416 E78.5 healthy diet and exercise discussed with pt Kidney stone 57605024 N2 0.0 with h/o intermitte nt back pain and lower abdominal pain-keep good hydration [id number] [facility] [address] [place] [address] 02/15/2023 08:30:56 02/18/2023 10:41:32 Mixed anxiety and depressive disorder 796955275 F41.8 (pt stopped lexapro due to dizziness )fair control- pt to continue venlafaxin e 150mg daily Essential hypertension 85567149 I10 stable-pt stopped taking verapamil- pt to continue valsartanh ct ( s/p LRT) Headache 35616056 R51.9 pt is off of Topamax - meds per neuro- pt to f/u with neuro Kidney stone 04461781 N2 0.0 with h/o intermitte nt back pain and lower abdominal pain-keep good hydrationp t did not do CT abdomen yet Low back pain 651727005 M54.50 -exercise /heat therapyadd cyclobenza ena with meloxicam [id number] MD Erica Ninohalto (Adult Med) [address] [place] [address] 04/18/2023 12:11:56 04/24/2023 11:05:48 Kidney stone 54734143 N20.0 with h/o intermitte nt upper abdominal pain-keep good hydrationp t to do CT abdomen- go to ER if pain gets worse-pt declined to take med for pain -taking otc analgesics Abdominal pain 47685211 R10.9 upper abdominal pain and hh/o kidney stone in the past-check labs and CT Hyperlipidemia 92797089 E78.5 healthy diet and exercise discussed with pt [id number] MD Jaclyn Nino (Adult Med) [address] [place] [address] 05/17/2023 14:23:35 05/21/2023 14:52:11 Essential hypertension 36646557 I10 stable-pt stopped taking verapamil- pt to continue valsartanh ct ( s/p LRT) Mixed anxi ety and depressive disorder 516114678 F41.8 (pt stopped lexapro due to dizziness )fair control- pt to continue venlafaxin e 150mg daily Headache 51753401 R51.9 pt is off of Topamax - meds per neuro- pt to f/u with neuro Influenza vaccination declined 843843697 Z28.21 Kidney stone 28455326 N2 0.0 with h/o intermitte nt upper abdominal pain-keep good hydrationp t to do CT abdomen- go to ER if pain gets worse-pt declined to take med for pain -taking otc analgesics Hyperlipidemia 83515507 E78.5 healthy diet and exercise discussed with pt Abdominal pain 95968917 R10.9 upper abdominal pain and h/o kidney stone in the past- CT showed sludged gallbladde r- pt is going for us for gallbladde r tomorrow [id number] Jacinta Wadsworth MD [place] 14 OB [address] [facility] [address] [place] [address] 07/05/2023 13:46:45 07/10/2023 15:54:58 Irregular periods 30048301 N92.6 Positive s creening for depression on PHQ-9 (Patient Health Questionnaire 9) 3275885311 45048 Z13.31 Gynecologi c examination 51781925 Z01.648 [id number] MD Jaclyn Nino (Adult Med) [address] [place] [address] 08/30/2023 14:15:08 09/02/2023 14:14:07 Essential hypertension 97022604 I10 fairly stable-pt stopped taking verapamil- pt to continue valsartanh ct ( s/p LRT) Mixed anxi ety and depressive disorder 167229646 F41.8 (pt stopped lexapro due to dizziness )fair control- pt to continue venlafaxin e 150mg daily Hyperlipidemia 24353690 E78.5 healthy diet and exercise discussed with pt Headache 15451785 R51.9 pt is off of Topamax - meds per neuro- pt to f/u with neuro Kidney stone 48122330 N2 0.0 with r/mild hydronephr osis and h/o intermitte nt upper abdominal pain-keep good hydrationp t sees urologist Upper resp iratory infection 78417300 J06.9 keep good hydrations upportive care -antihista cadence/benzon ante tid prn [id number] MD Hardy Streeter 14 OB [address] [facility] [address] [place] [address] 11/08/2023 13:45:06 11/11/2023 10:36:31 Overweight 769196802 E66.3 Positive s creening for depression on PHQ-9 (Patient Health Questionnaire 9) [id number] Z13.31 Low grade squamous intraepithelial lesion on cervical Papanicolaou smear [id number] 9105 R87.803 [id number] MD Jaclyn Nino (Adult Med) [address] [place] [address] 11/21/2023 11:58:30 11/25/2023 17:51:10 Mixed anxiety and depressive disorder [id number] F41.8 (pt stopped lexapro due to dizziness )fair control- pt to continue venlafaxin e 150mg daily-add wellbutrin Essential hypertension 59782381 I10 with h/o neurofibro matosis-fa irly stable-pt stopped taking verapamil- pt to continue valsartanh ct ( s/p LRT)check labs to r/o pheo since pt has hotflashes /sweating Headache 28874889 R51.9 pt is off of Topamax - meds per neuro- pt to f/u with neuro [id number] MD Erica Ninohalto (Adult Med) [address] [place] [address] 11/28/2023 09:16:29 11/30/2023 08:08:57 Mixed anxiety and depressive disorder [id number] F41.8 (pt stopped lexapro due to dizziness )improving - pt to continue venlafaxin e 150mg daily-adde d wellbutrin recently Essential hypertension 98923798 I10 with h/o neurofibro matosis-fa irly stable-pt stopped taking verapamil- pt to continue valsartanh ct ( s/p LRT)check labs to r/o pheo since pt has hotflashes /sweating- pending labs Hyperlipidemia 19115376 E78.5 healthy diet and exercise discussed with pt [id number] MD Jaclyn Nino (Adult Med) [address] [place] [address] 12/31/2023 09:33:05 01/01/2024 21:27:02 Essential hypertension 77456769 I10 with h/o neurofibro matosis-fa irly stable-pt stopped taking verapamil- pt to continue valsartanh ct ( s/p LRT)check labs to r/o pheo since pt has hotflashes /sweating- pending labs Mixed anxi ety and depressive disorder 485931608 F41.8 (pt stopped lexapro due to dizziness )improving - pt to continue venlafaxin e 150mg daily-adde d wellbutrin recently Hyperlipidemia 88694475 E78.5 healthy diet and exercise discussed with pt Headache 11947588 R51.9 pt is off of Topamax - meds per neuro- pt to f/u with neuro Itching of skin 02766971 0 L29.9 -not sure of etiology-l ess likely scabies - 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 [id number] MD Jaclyn Nino (Adult Med) [address] [place] [address] 02/13/2024 12:01:19 02/14/2024 16:23:07 Dysuria 61128879 R30.0 -urine dipstick -sungwill rx for clinical UTI-keep good hydration [id number] MD Jaclyn Nino (Adult Med) [address] [place] [address] 08/03/2024 09:15:15 08/04/2024 09:30:10 Mixed anxiety and depressive disorder 803816409 F41.8 (pt stopped lexapro due to dizziness )fairly stable /feeling bored and tired since she lost her job recently- pt to continue venlafaxin e 150mg daily-adde d wellbutrin -pt to see therapists leep hygiene discussed with ptpt to call crisis number if SI Daytime hypersomnia [phone] [phone] G47.19 with snoring- discussed about sleep hygiene [id number] MD Hardy Streeter [address] [facility] [place] [address] 08/06/2024 09:46:49 08/07/2024 08:08:27 Irregular periods 93232263 N92.6 Depression screening positive [id number] 62691 Z13.31 Gynecologi c examination 65255023 Z01.419 Health Concerns Section Related Observation LastModified by Organization Detai ls LastModified Time None Recorded Concern Status LastModified by Organization Details LastModified Time None Recorded Advance Directives Directive N: Payers Encounter Date Sequence Insurance Name Policy Number Policy Vo Covered Member ID Vo Member ID Guarantor Name 11/28/2023 1 [employer] [facility] [employer] [id number] Safia L Puente [id number] Safia L Newport 11/28/2023 2 [facility] [employer] Safia L Newport [id number] Safia L Newport 12/31/2023 1 [employer] [facility] [employer] [id number] Safia L Puente [id number] Safia L Newport 12/31/2023 2 [facility] [employer] Safia L Puente [id number] Safia L Newport 02/13/2024 1 [employer] [facility] [employer] [id number] Safia L Puente [id number] Safia L Puente 02/13/2024 2 [facility] [employer] Safia L Puente [id number] Safia L Newport 08/03/2024 1 [employer] [facility] [employer] [id number] Safia L Cindi [id number] Safia L Puente 08/03/2024 2 [facility] [employer] Safia Puente [id number] Safia Puente 08/06/2024 2 [facility] ([facility] [place] Safia Puente [id number] Safia Puente 08/06/2024 2 [place] [facility] Safia Puente [id number] Safia Puente Notes Date Note Type Note Provider Name and Address Organization Details Recorded Time 4 text/html Anxiety/DepressionReport ed bypatient.Quality:meds helps and feeling better Severity:denies suicidal ideations Duration:frequent; symptoms lasting over 2 weeks Context:major life stressors(working long hours/ with 2 children/ financial) Modifying Factors:medications as directed Associated Symptoms:denies homicidal ideations;anxiety(improv ing);depression(better); anxiety with excessive sweating;flushing;trembl ing or shaking (tremor);headachesHeadac heReported bypatient.Location:inclu ding neck; frontal Quality:not the worst headache ever; similar to previous headaches Duration:intermittent Context:not related to trauma; stress at work Associated Symptoms:no vomiting;photophobiaNote s:pt is seeing neuro who stopped topamaxHypertension F/UReported bypatient.Associated Symptoms:no dizziness; no chest pain; no shortness of breath; no palpitations; no edema Lifestyle:regular exercise; limiting/avoiding salt Medications:taking medications as directed; no side effects from medication pt sees urologist for kidney stone /hydronephrosis Paulie Macias MD Attn: [address] [place], [address], [facility] 11/28/2023 13:37:03 4 text/html Anxiety/DepressionReport ed bypatient.Quality:meds helps and feeling better Severity:denies suicidal ideations Duration:frequent; symptoms lasting over 2 weeks Context:major life stressors(working long hours/ with 2 children/ financial) Modifying Factors:medications as directed Associated Symptoms:denies homicidal ideations;anxiety(improv ing);depression(better); anxiety with excessive sweating;flushing;trembl ing or shaking (tremor);headachesHeadac heReported bypatient.Location:inclu ding neck; frontal Quality:not the worst headache ever; similar to previous headaches Duration:intermittent Context:not related to trauma; stress at work Associated Symptoms:no vomiting;photophobiaNote s:pt is seeing neuro who stopped topamaxHypertension F/UReported bypatient.Associated Symptoms:no dizziness; no chest pain; no shortness of breath; no palpitations; no edema Lifestyle:regular exercise; limiting/avoiding salt Medications:taking medications as directed; no side effects from medication pt sees urologist for kidney stone /hydronephrosispt is also complaining of itcy skin for last 3 days Paulie Macias MD Attn: [address]ing[address] [place], [address], [facility] 12/31/2023 11:39:23 4 text/html DysuriaReported bypatient.Quality:alberto g Severity:moderate Duration:symptoms lasting over 2 weeks Context:no prior history of STDs; history of kidney stones Associated Symptoms:no fever; no blisters on genitals; no blood in the urine Paulie Macias MD Attn: Accounting[address] [place], [address], [facility] 02/13/2024 15:37:08 5 text/html Anxiety/DepressionReport ed bypatient.Quality:meds helps and feeling better except the fact that she lost her job recently -trying to find new job now Severity:denies suicidal ideations;interference with sleep(sleeping too much) Duration:frequent; symptoms lasting over 2 weeks Context:major life stressors(unemployed/div orced with 2 children/ financial); pt is sleeping more since she lost her job/ pt is feeling better since her new relationship per pt Modifying Factors:medications as directed Associated Symptoms:denies homicidal ideations;depression(bet ter);sleep disturbances;anhedonia;s leeping more (hypersomnia);low self-esteem pt is complaining of sleeping more and not following a sleep hygiene since she lost her job/ pt also said she does snores at night Paulie Macias MD Attn: [address] [place], [address], [facility] 08/03/2024 12:33:52 5 text/html Annual GYNReported bypatient.Menstrual cycle:Normal menses Urinary symptoms:No hematuria; No incontinence Vulva:No genital lesion Vagina:Normal vaginal discharge Breast:No breast pain; No breast lump; No nipple discharge Current Contraception:Oral contraceptives; Tubal ligation Sexual complaints:No sexual complaints; No pain during intercourse; Normal libido Menopausal Symptoms:No menopausal symptoms; Normal vaginal lubrication Psychological symptoms:No depression; No anxiety; No PMDD period controlled on pills ran out, missed one month, definite hot flashes. no other issues today needs to do something fun Jacinta Wadsworth MD Attn: [address] [place], [address], [facility] 08/06/2024 10:56:43 OBGyn Episode Ob Episode Information Episode Created Date Number of Fetuses Patient Bloodtype Patient rh Status Prepregnancy Weight lbs Domestic Partner Domestic Partner Phone Father Name Sawing And Assembly Supervisor Status 03/09/20 15 1 CLOSED Fetus Data First Name Last Name Admitted to NICU Weight (g) Sex Living Outcome Pediatric Complications Fetus ID Race Codes Race Delivery Type 3628.73 6 [id number] Jaylan Calculation Initial Jaylan Date Initial Exam Date Initial Exam Provider Initial Ultrasound Date Last Menstrual Period Date Ultra Sound Weeks Gestation 0 Eighteen To Twenty Week Jaylan Update Ultra Sound Date Fundal Height At Umbil Quickening Date Ultra Sound Latest Weeks Gestation Final Jaylan Confirmed By Final Jaylan Confirmed Date Final Jaylan Date Ultra Sound Latest Days Gestation 0 0 Menstrual History Last Menstrual Date Menses Monthly On Bcp Conception Prior Menses Frequency Hcg Plus Date Menarche Onset Age Delivery Information Delivery Date Delivery Type Labor Anesthesia Weeks Gestation Incision Type Labor Labor Length Hrs Delivered By Post Complications Tubal Sterilization Discharge Date Comments 9 Dr. Wadsworth; [facility] Discharge Information Feeding Method Contraceptive Method Maternal HG B and HCT Levels Ob Episode Information Episode Created Date Number of Fetuses Patient Bloodtype Patient rh Status Prepregnancy Weight lbs Domestic Partner Domestic Partner Phone Father Name Sawing And Assembly Supervisor Status 03/09/20 15 1 CLOSED Fetus Data First Name Last Name Admitted to NICU Weight (g) Sex Living Outcome Pediatric Complications Fetus ID Race Codes Race Delivery Type 3202.35 [id number] [id number] Vaginal Jaylan Calculation Initial Jaylan Date Initial Exam Date Initial Exam Provider Initial Ultrasound Date Last Menstrual Period Date Ultra Sound Weeks Gestation 0 Eighteen To Twenty Week Jaylan Update Ultra Sound Date Fundal Height At Umbil Quickening Date Ultra Sound Latest Weeks Gestation Final Jaylan Confirmed By Final Jaylan Confirmed Date Final Jaylan Date Ultra Sound Latest Days Gestation 0 0 Menstrual History Last Menstrual Date Menses Monthly On Bcp Conception Prior Menses Frequency Hcg Plus Date Menarche Onset Age Delivery Information Delivery Date Delivery Type Labor Anesthesia Weeks Gestation Incision Type Labor Labor Length Hrs Delivered By Post Complications Tubal Sterilization Discharge Date Comments 8 Dr. Wadsworth Discharge Information Feeding Method Contraceptive Method Maternal HG B and HCT Levels
--- OUTSIDE RECORDS SUMMARY | 2024-10-13 09:38 | XMS_ITS | Encounter Summary ---
Author Organization [facility] Address [address] [place] [address] Phone Care Team Providers Care Cavalry Scout Name Role Phone Paulie Hawkins MD Primary Care Provider Ramon Peacock GROUP SALES REPRESENTATIVE, NEEDLE FELT MAKING MACHINE OPERATOR Unavailable Ely Haile GROUP SALES REPRESENTATIVE, MAINSPRING STRIP INSPECTOR Unavailable [phone] Reason for Visit * Reason Comments Medication Refill Encounter Details Date Type Department Care Team (Late st Contact Info) Description 11/25/2022 Refill [facility] - Neurology [facility] [address] [place] [address] Ely Haile, GROUP SALES REPRESENTATIVE, MAINSPRING STRIP INSPECTOR [address] [place] [address] Medication Refill Social History Tobacco Use Types Packs/Day Years Used Date Smoking Tobacco: Never Smokeless Tobacco: Never Alcohol Use Standard Drinks/Week Comments No 0 (1 standard drink = 0.6 oz pur e alcohol) Comments No Sex and Gender Information Value Date Recorded Sex Assigned at Not on file Legal Sex Female 9:47 PM CDT Gender Identity Not on file Sexual Orientation Not on file documented as of this encounter Plan of Treatment Not on file documented as of this encounter Visit Diagnoses Diagnosis Chronic migraine w/o aura w/o status migrainosus, not intractable Chronic migraine without aura, without mention of intractable migraine without mention of status migrainosus documented in this encounter Additional Health Concerns Infection Onset Date Last Indicated Resolved Time COVID - 19 06/22/2024 06/22/2024 06/22/2024 12:1 7 PM QUICK MIXER OPERATOR documented as of this encounter Care Teams Cavalry Scout Relationship Specialty Start Date End Date Paulie Hawkins MD [address] [place] [address] PCP - General Internal Medicine 08/08/16 Ramon Peacock APRN, NEEDLE FELT MAKING MACHINE OPERATOR [address] [place] [address] Nurse Practitioner Advanced Practice Nurse 07/26/23 Ely Haile APRN, MAINSPRING STRIP INSPECTOR [address] [place] [address] Nurse Practitioner Advanced Practice Nurse 09/14/22 documented as of this encounter
--- OUTSIDE RECORDS SUMMARY | 2024-10-13 09:38 | XMS_ITS | Encounter Summary ---
Author Organization [facility] Address [address] [place] [address] Phone Care Team Providers Care Supervisor Fish Processing Name Role Phone Paulie Hawkins MD Primary Care Provider Ramon Peacock GRAIN FARMER, DATA MANAGER Unavailable [phone] Ely Haile GRAIN FARMER, NUTRITIONAL SERVICES HOST Unavailable [phone] Reason for Visit * Reason Comments Medication Refill Encounter Details Date Type Department Care Team (Late st Contact Info) Description 08/06/2023 Refill [facility] - Neurology [facility] [address] [place] [address] Ely Haile, GRAIN FARMER, NUTRITIONAL SERVICES HOST [address] [place] [address] Medication Refill Social History Tobacco Use Types Packs/Day Years Used Date Smoking Tobacco: Never Smokeless Tobacco: Never Alcohol Use Standard Drinks/Week Comments No 0 (1 standard drink = 0.6 oz pur e alcohol) Sexually Active Control Partners Comments Not Currently Comments No Sex and Gender Information Value Date Recorded Sex Assigned at Not on file Legal Sex Female 9:47 PM CDT Gender Identity Not on file Sexual Orientation Not on file documented as of this encounter Miscellaneous Notes * Telephone Encounter - Winifred King RN - 08/06/2023 2:25 PM CST Medication failed the protocol, provider to review and approve the medication order if appropriate. Requested Prescriptions Pending Prescriptions Disp Refills Rizatriptan Benzoate 10 MG Tablet [Pharmacy Med Name: Rizatriptan Benzoate 10 MG Oral Tablet] 10 Tablet 0 Sig: TAKE 1 TABLET BY MOUTH ONCE NEEDED FOR HEADACHES, MAY REPEAT IN 2 HOURS IF NEEDED. Not Delegated - Serotonin Agonists (Oral and Nasal) Protocol Failed - 08/06/2023 1:19 PM Failed - This refill cannot be delegated; check utilization no more than 9 doses per month Passed - Visit with relevant provider in past 24 months or upcoming 90 days Recent Visits Date Type Provider Dept 02/22/23 Office Visit Ely Haile APRN, [facility] 09/14/22 Office Visit Ely Haile APRN, [facility] Showing recent visits within past 730 days and meeting all other requirements Future Appointments Date Type Provider Dept 08/23/23 Appointment Ely Haile APRN, [facility] Showing future appointments within next 90 days and meeting all other requirements Passed - No documented Systolic BP > 200 within past 3 months Passed - Number of active Serotonergic medications less than 3 TICAL ANALYST documented in this encounter Plan of Treatment Not on file documented as of this encounter Visit Diagnoses Diagnosis Chronic migraine w/o aura w/o status migrainosus, not intractable Chronic migraine without aura, without mention of intractable migraine without mention of status migrainosus documented in this encounter Additional Health Concerns Infection Onset Date Last Indicated Resolved Time COVID - 19 06/22/2024 06/22/2024 06/22/2024 12:1 7 PM POLITICAL ANALYST documented as of this encounter Care Teams Supervisor Fish Processing Relationship Specialty Start Date End Date Paulie Hawkins MD [address] [place] [address] PCP - General Internal Medicine 08/08/16 Ramon Peacock APRN, DATA MANAGER [address] [place] [address] Nurse Practitioner Advanced Practice Nurse 07/26/23 Ely Haile APRN, NUTRITIONAL SERVICES HOST [address] [place] [address] Nurse Practitioner Advanced Practice Nurse 09/14/22 documented as of this encounter
--- OUTSIDE RECORDS SUMMARY | 2024-10-13 09:38 | XMS_ITS | Clinical Summary ---
Author Organization [facility] Address [address] [place] [address] Phone Care Team Providers Care Industrial Recruiter Name Role Phone Paulie Hawkins MD Primary Care Provider [phone] Ramon Peacock MUSEUM ARCHIVIST, CATHOLIC PRIEST Unavailable [phone] Ely Haile MUSEUM ARCHIVIST, CEMENT WORKER Unavailable [phone] Allergies Active Allergy Reactions Criticality Noted Date Comments Duloxetine Hcl Other (see Comments) 08/22/2022 Abdominal pain Peanut-Containing Drug Products Hives 08/08/2016 Medications ibuprofen (MOTRIN) 600 MG Tablet Take 1 Tab by mouth every 8 hours as needed for Pain. 30 Tab 0 08/08/2016 Active FLUoxetine (PROzac) 10 MG Capsule Take 10 mg by mouth daily. Active cyclobenzaprine (FLEXERIL) 10 MG Tablet Take 10 mg by mouth nightly. Active Norethin Edvin-Eth Estrad-FE () 1-20 MG-MCG(24) Tablet Take by mouth. Active omeprazole (PriLOSEC) 20 MG CAPSULE DELAYED RELEASE Take 20 mg by mouth daily. Active valsartan-hydroC HLOROthiazide (DIOVAN-HCT) 160-12.5 MG Tablet Take 1 Tablet by mouth daily. Active metoclopramide (REGLAN) 5 MG TabletIndication s:Chronic migraine w/o aura w/o status migrainosus, not intractable Take 1 Tablet by mouth 2 times daily as needed for Nausea - 1st line. 30 Tablet 3 02/22/2023 Active Ubrogepant (Ubrelvy) 50 MG TabletIndication s:Chronic migraine w/o aura w/o status migrainosus, not intractable Take 1 Tablet by mouth once as needed for Other (headache/mi graine). 10 Tablet 2 08/23/2023 Active prochlorperazine (COMPAZINE) 5 MG Tablet Take 1-2 Tablets by mouth every 6 hours as needed (headache). 10 Tablet 04/16/2024 Active Active Problems No known active problems Immunizations Immunization Administration Dates Next Due Hepatitis A Vaccine 11/24/2012 Human Papillomavirus Vaccine (HPV), quadrivalent 02/10/2013,11/24/2012 Influenza, Injectable, Quadrivalent 05/21/2016,0 04/25/2015 TDAP Vaccine 10/19/2016,02/10/2013 Family History Medical History Relation Name Comments Colon Cancer Mother Relation Name Status Comments Father Alive Mother Alive Social History Tobacco Use Types Packs/Day Years [...] on file Sexual Orientation Not on file Last Filed Vital Signs Vital Sign Reading Time Taken Comments Blood Pressure 131/93 06/22/2024 1:15 PM RESEARCH HOME ECONOMIST Pulse 92 06/22/2024 1:15 PM RESEARCH HOME ECONOMIST Temperature 36.1 C (97 F) 06/22/2024 10:45 AM RESEARCH HOME ECONOMIST Respiratory Rate 16 06/22/2024 1:31 PM RESEARCH HOME ECONOMIST Oxygen Saturation 99% 06/22/2024 1:15 PM RESEARCH HOME ECONOMIST Inhaled Oxygen Concentration - - Weight 59 kg (130 lb) 06/22/2024 10:45 AM RESEARCH HOME ECONOMIST Height 154.9 cm (5' 1 ) 06/22/2024 10:45 AM RESEARCH HOME ECONOMIST Body Mass Index 24.56 06/22/2024 10:45 AM RESEARCH HOME ECONOMIST Plan of Treatment Health Maintenance Due Date Last Done Comments Hepatitis C Virus (HCV) Screening 1987 Hepatitis B Immunization (1 of 3 - 19+ 3-dose series) 2006 Pap Smear 2008 Cervical Cancer Screening (CCS) 2017 HPV/Cotest 2017 Influenza Immunization (#1) 2024 10/2 10/2015, 04/25/2015 SARS-COV-2 Immunization ( season) 2024 07/23/2021, 06/30/2021 Td Immunization Every 10 Years (Adults With 1 Tdap) 10/19/2026 10/19/2016, 02/10/2013 Respiratory Syncytial Virus (RSV) Immunization (Adult) (1 - 1-dose 75+ series) 2062 DTaP/Tdap/Td Immunization Discontinued 2016, 02/10/2013 Meningococcal Immunization (ACWY) Aged Out No longer eligible based on patient's age to complete this topic Pneumococcal Immunization Combined Aged Out No longer eligible based on patient's age to complete this topic Rotavirus Immunization Aged Out No lo nger eligible based on patient's age to complete this topic Insurance [facility] Care Teams Industrial Recruiter Relationship Specialty Start Date End Date Paulie Hawkins MD [address] [facility] [address] [place] [address] PCP - General Internal Medicine 08/08/16 Ramon Peacock, MUSEUM ARCHIVIST, CATHOLIC PRIEST [address] [place] [address] Nurse Practitioner Advanced Practice Nurse 07/26/23 Ely Haile APRN, CEMENT WORKER [address] [place] [address] Nurse Practitioner Advanced Practice Nurse 09/14/22
== END 2024-10-13 09:00 | disposition home or self-care (01) ==
LOC: CHSIMG 09:04
PROVIDERS: PCP Family Medicine; Visit Provider Family Medicine
DX: M41.9 Scoliosis, unspecified (principal); M51.379 Other intervertebral disc degeneration, lumbosacral region without mention of lumbar back pain or lower extremity pain
CPT/HCPCS: 72100; 72202

== ENCOUNTER 2024-12-08 10:22 | Outpatient (CLI) | payer OTHER, MEDICAID, SELFPAY ==
--- OUTSIDE RECORDS SUMMARY | 2024-12-08 10:41 | XMS_ITS | Encounter Summary ---
Author Organization [facility] Address [address] [place] [address] Phone Care Team Providers Care Chief Communications Officer Name Role Phone Paulie Hawkins MD Primary Care Provider [phone] Ramon Peacock UNDERGROUND CONDUIT INSTALLER, RN CRITICAL CARE Unavailable [phone] Ely Haile UNDERGROUND CONDUIT INSTALLER, WINDOW TREATMENT INSTALLER Unavailable [phone] Reason for Visit * Reason Comments Medication Refill Encounter Details Date Type Department Care Team (Late st Contact Info) Description 11/25/2022 Refill [facility] [address] [place] [address] Ely Haile, UNDERGROUND CONDUIT INSTALLER, WINDOW TREATMENT INSTALLER [address] [place] [address] Medication Refill Social History Tobacco Use Types [...] 19 06/22/2024 06/22/2024 06/22/2024 12:1 7 PM GAMES MANAGER documented as of this encounter Care Teams Chief Communications Officer Relationship Specialty Start Date End Date Paulie Hawkins MD [address] [place] [address] PCP - General Internal Medicine 08/08/16 Ramon Peacock APRN, RN CRITICAL CARE [address] [place] [address] Nurse Practitioner Advanced Practice Nurse 07/26/23 Ely Haile APRN, WINDOW TREATMENT INSTALLER [address] [place] [address] Nurse Practitioner Advanced Practice Nurse 09/14/22 documented as of this encounter
--- OUTSIDE RECORDS SUMMARY | 2024-12-08 10:42 | XMS_ITS | Encounter Summary ---
Author Organization [facility] Address [address] [place] [address] Phone Care Team Providers Care Potato Chip Sorter Name Role Phone Paulie Hawkins MD Primary Care Provider [phone] Ramon Peacock WOOD INSPECTOR, PLASTERER SPOT Unavailable + [phone] Ely Haile WOOD INSPECTOR, PLAYGROUND DIRECTOR Unavailable +- [phone] Reason for Visit * Reason Comments Medication Refill Encounter Details Date Type Department Care Team (Late st Contact Info) Description 08/06/2023 Refill [facility] [address] [place] [id number] Ely Haile, WOOD INSPECTOR, PLAYGROUND DIRECTOR [address] [place] [address] Medication Refill Social History Tobacco Use Types [...] Dept 02/22/23 Office Visit Ely Haile APRN, [facility] Neurology [facility] [address] 09/14/22 Office Visit Ely Haile APRN, [facility] Neurology [facility] Showing recent visits within past 730 days and meeting all other requirements Future Appointments Date Type Provider Dept 08/23/23 Appointment Ely Haile APRN, [facility] Neurology [facility] [address] Showing future appointments within next 90 days and meeting all other requirements Passed - No documented Systolic BP > 200 within past 3 months Passed - Number of active Serotonergic medications less than 3 RETE BOOM OPERATOR documented in this encounter Plan of Treatment [...] 19 06/22/2024 06/22/2024 06/22/2024 12:1 7 PM CONCRETE BOOM OPERATOR documented as of this encounter Care Teams Potato Chip Sorter Relationship Specialty Start Date End Date Paulie Hawkins MD [address] [place] [address] PCP - General Internal Medicine 08/08/16 Ramon Peacock, WOOD INSPECTOR, PLASTERER SPOT [address] [place] [address] Nurse Practitioner Advanced Practice Nurse 07/26/23 Ely Haile APRN, PLAYGROUND DIRECTOR [address] [place] [address] Nurse Practitioner Advanced Practice Nurse 09/14/22 documented as of this encounter
--- OUTSIDE RECORDS SUMMARY | 2024-12-08 10:42 | XMS_ITS | Clinical Summary ---
Author Organization [facility] Address [address] [place] [address] Phone Care Team Providers Care Lumber Kiln Operator Name Role Phone Paulie Hawkins MD Primary Care Provider [phone] Ramon Peacock CMM INSPECTOR, YARD MANAGER Unavailable + [phone] Ely Haile CMM INSPECTOR, GIMP TACKER Unavailable [phone]- [phone] Allergies Active Allergy Reactions Criticality Noted Date [...] Comments Blood Pressure 131/93 06/22/2024 1:15 PM MEDICAL BILLER Pulse 92 06/22/2024 1:15 PM MEDICAL BILLER Temperature 36.1 C (97 F) 06/22/2024 10:45 AM MEDICAL BILLER Respiratory Rate 16 06/22/2024 1:31 PM MEDICAL BILLER Oxygen Saturation 99% 06/22/2024 1:15 PM MEDICAL BILLER Inhaled Oxygen Concentration - - Weight 59 kg (130 lb) 06/22/2024 10:45 AM MEDICAL BILLER Height 154.9 cm (5' 1 ) 06/22/2024 10:45 AM MEDICAL BILLER Body Mass Index 24.56 06/22/2024 10:45 AM MEDICAL BILLER Plan of Treatment Health Maintenance Due Date Last Done Comments Hepatitis C Virus (HCV) Screening 1987 Hepatitis B Immunization (1 of 3 - 19+ 3-dose series) 2006 Pap Smear 2008 Cervical Cancer Screening (CCS) 2017 HPV/Cotest 2017 Influenza Immunization (#1) 2024 1010/2015, 04/25/2015 SARS-COV-2 Immunization ( season) 2024 07/23/2021, [...] patient's age to complete this topic Insurance [facility] Care Teams Lumber Kiln Operator Relationship Specialty Start Date End Date Paulie Hawkins MD [address] [place] [address] PCP - General Internal Medicine 08/08/16 Ramon Peacock APRN, YARD MANAGER [address] [place] [address] Nurse Practitioner Advanced Practice Nurse 07/26/23 Ely Haile APRN, GIMP TACKER [address] [place] [address] Nurse Practitioner Advanced Practice Nurse 09/14/22
== END 2024-12-08 10:23 | disposition home or self-care (01) ==
LOC: CHSIMG 10:23
PROVIDERS: PCP Family Medicine; Visit Provider Family Medicine
DX: M25.562 Pain in left knee (principal); M25.561 Pain in right knee
CPT/HCPCS: 73562

== ENCOUNTER 2025-01-27 12:46 | Emergency (ER) | payer MEDICAID, SELFPAY ==
--- NOTE | ~2025-01-27 | XR_ITS ---
HISTORY: fell on her buttocks and has sacral/coccyx pain COMPARISON: 10/13/2024 TECHNIQUE: 2 views of the sacrum and coccyx were performed FINDINGS: No acute or subacute fracture. Redemonstration of narrowing of the right sacroiliac joint space width sclerosis along the medial and lateral surface. Exaggerated angulation of the coccyx is identified, possibly representing acute fracture. The angle i s significantly altered when compared with previous examination performed 10/13/2024. Remaining joint spaces are preserved and remainder of the alignment is maintained. Soft tissues are unremarkable without radiopaque foreign body or significant calcification. Age-appropriate mineralization. IMPRESSION: Likely coccygeal fracture, as detailed above. Reviewed, dictated and finalized at location A.
--- NOTE | ~2025-01-27 | CT_ITS ---
EXAMINATION: CT cervical spine wo con DATE: 01/27/2025 13:39 INDICATION: Fall with head injury TECHNIQUE: Computed tomography (CT) of the cervical spine was performed without intravenous contrast. Automated exposure control and iterative reconstruction technique were employed. The dose-length pro duct was 605.33 mGy-cm. COMPARISON: None FINDINGS: There is mild focal reversal of the normal cervical lordosis which could be positional or due to musc le spasm. Vertebral body heights are normal. No fracture. Moderate disc height loss at C5-C6 and mild disc height loss at C4-C5 and C6-C7. There are posterior endplate osteophytes contributing to mild c entral canal stenosis at each of these levels. 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 Minimal to mild multilevel cervical facet osteoarthritis. T he uncovertebral osteoarthritis contributes to minimal neural foraminal stenosis on the right and C4- C5 and C5-C6. Subtle 7 mm likely benign left thyroid nodule. Cervical soft tissues are otherwise unre markable. Mild biapical pleural-parenchymal scarring. IMPRESSION: 1. Mild to moderate cervical spondylosis. No acute osseous abnormality. Reviewed, dictated and finalized at location A.
--- NOTE | ~2025-01-27 | XR_ITS ---
XR chest 1V portable Ordering provider: Marin Natarajan MD History: 39 years Female with . accidental fall . Comparison: None. FINDINGS: MEDIASTINUM: The cardiac silhouette is not enlarged. LUNGS: No infiltrates, effusions or pneumothorax. OTHER: No free air under the diaphragm. IMPRESSION: No acute cardiopulmonary pathology. Reviewed, dictated and finalized at location A.
--- NOTE | ~2025-01-27 | CT_ITS ---
EXAMINATION: CT brain wo con DATE: 01/27/2025 13:39 INDICATION: Syncopal episode with head injury post fall backwards. TECHNIQUE: Computed tomography (CT) of the head was performed without intravenous contrast. Sagittal and coronal reconstructions were performed. The mA was adjusted according to patient size. Iterative reconstruction technique was employed. The dose-length product was 605.33 mGy-cm. COMPARISON: None FINDINGS: No fracture. No acute intracranial hemorrhage, acute infarction or abnormal extra axial fluid collect ion. Ventricles are normal and symmetric. No mass/mass effect. The orbits, paranasal sinuses and mast oid air cells are normal. IMPRESSION: 1. No fracture or acute intracranial process. Reviewed, dictated and finalized at location A.
[2025-01-27 12:46] VITALS: BP 120/77; PULSE 72; RESP 14; TEMP 36.6; O2SAT 100
--- OUTSIDE RECORDS SUMMARY | 2025-01-27 12:50 | XMS_ITS | Data Portability ---
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 possible early menopause? - no desire to wait a month to do testing [email or web address] Not available 08/06/2024 10:56:28 Plan of Treatment Reminders Order Date Submit Date Provider Last Modified By Organization Details Last Modified Time Details Appointments None recorded . Lab cytology report, thin prep, smear or scraping , cervical or vaginal 2024 025 [facility], [address] [place] [address], [id number], 5 11:10:59 urinalys is, dipstick 2023 024 nsuthan In-Office Order, Internal Use Only DO Not Attach Compendium DO Not Attach Compendium, Do Not Delete/merge, [id number] 4 12:22:53 Referral sleep medicine referral 2024 025 donavan Costa MD, 1 [facility], Third Floor, [place], [address], 5 08:59:11 clinical therapis t referral 2024 025 FLETCHER Quinones [facility], [address], [place] [address] [place], [address], 5 16:24:36 Procedures None recorded . Surgeries None recorded . Imaging None recorded . Medication Orders Gui 24 Fe 1 mg-20 mcg (24)/75 mg (4) tablet 2024 025 [facility], [address] [place] [address], [address], 5 10:48:32 nitrofur antoin monohydr ate/macr ocrystal s 100 mg capsule 2023 025 [facility], [address] [place] [address], [id number], 5 11:34:07 Pyridium 200 mg tablet 2023 025 [facility], [address] [place] [address], [address], 5 11:34:41 hydroxyz ine HCl 25 mg tablet 2023 024 [facility], [address] [place] [address], [address], 4 12:11:00 Patient TargetsNo targets recorded. Patient Instructions Encounter Date Encounter Id Patient Instructions Last Modified By Organization Details Last Modified Time 11/28/2023 [id number] eating healthy foods: care instructions nsuthan Not available 11/28/2023 09:50:40 f/u in 1month nsuthan Not available 09:52:00 12/31/2023 [id number] f/u in 3month nsuthan Not available 0 12/31/2023 11:38:59 02/13/2024 [id number] keep f/u nsuthan Not available 02/12 15:36:25 08/03/2024 [id number] f/u in 1 month nsuthan Not available [...] Negati ve negati ve Not Available [facility] ([facility]) [address] [place], [address], 11/14/2023 16:16:52 11/08/19 24 11/12/2023 IGP,C TNGTV ,RFX APTIM A HPV ASCU gonococcus, nuc. acid amp Negati ve negati ve Not Available [facility] ([facility]) [address] [place], [address], 11/14/2023 16:16:52 11/08/19 24 11/12/2023 IGP,C TNGTV ,RFX APTIM A HPV ASCU trich vag by NUNO Negati ve negati ve Not Available [facility] ([facility]) [address] [place], [address], 11/14/2023 16:16:52 11/08/19 24 11/14/2023 IGP,C TNGTV ,RFX APTIM A HPV ASCU diagnosis: Commen t NEGAT JAIME FOR INTRA EPITH ELIAL LESIO N OR GINA GARG . FUNGA L ORGAN ISMS MORPH OLOGI RAYMUNDO CONSI STENT WITH LOKESH DA SPECI ES ARE PRESE NT. PREDO MINAN CE OF COCCO BACIL LI CONSI STENT WITH SHIFT IN VAGIN AL LEVI IS PRESE NT. THIS SPECI MEN WAS RESCR EENED PART OF OUR QUALI TY CONTR OL PROGR AM. Not Available [facility] ([facility]) [address] [facility], [place], [address], 11/14/2023 16:16:52 11/08/19 24 11/14/2023 IGP,C TNGTV ,RFX APTIM A HPV ASCU specimen adequacy: Bryan griffiths Satis facto ry for evalu ation . No endoc ervic al compo nent is ident ified . Not Available [facility] ([facility]) [address] [place], [address], 11/14/2023 16:16:52 11/08/19 24 11/14/2023 IGP,C TNGTV ,RFX APTIM A HPV ASCU clinician provided ICD10: Bryan griffiths R87.6 12 Not Available [facility] ([facility]) [address] [place], [address], 11/14/2023 16:16:52 11/08/19 24 11/14/2023 IGP,C TNGTV ,RFX APTIM A HPV ASCU performed by: Bryan swenson, Cytot echno logis t (ASCP ) Not Available [facility] ([facility]) [address] [place], [address], 11/14/2023 16:16:52 11/08/19 24 11/14/2023 IGP,C TNGTV ,RFX APTIM A HPV ASCU QC reviewed by: Bryan Pedroza, Cytot echno logis t (ASCP ) Not Available [facility] ([facility]) [address] [place], [address], 11/14/2023 16:16:52 11/08/19 24 11/14/2023 IGP,C TNGTV ,RFX APTIM A HPV ASCU . . Not Available [facility] ([facility]) [address] [place], [address], 11/14/2023 16:16:52 04/12/20 24 11/14/2023 IGP,C TNGTV ,RFX APTIM A HPV ASCU note: Commen t The Pap smear is a scree apoorva test desjazmin rodríguez to aid in the detec tion of ludwig ligna nt and malig nant condi tions of the uteri ne cervi x. It is not a diagn ostic proce dure and shoul d not be used as the sole means of detec ting cervi jignesh cance r. Both false -posi tive and false -nega tive repor ts do occur . Not Available [facility] ([facility]) [address] [place], [address], 11/14/2023 16:16:52 11/08/19 24 11/14/2023 IGP,C TNGTV ,RFX APTIM A HPV ASCU test methodology: Commen t This liqui d based ThinP rep(R ) pap test was scree marcos with the use of an image guide d syste m. Not Available [facility] ([facility]) [address] [place], [address], 11/14/2023 16:16:52 11/08/19 24 11/14/2023 IGP,C TNGTV ,RFX APTIM A HPV ASCU . Commen t The HPV DNA refle x crite hunter were not met with this speci men resul t there fore, no HPV testi ng was perfo rmed. Not Available [facility] ([facility]) [address] [place], [address], 11/14/2023 16:16:52 11/28/19 24 12/06/2023 METAN EPHRI JERZY, FRAC. , PL. FREE normetanephr ine, pl 80.0 pg/mL 0.0-21 0.1 Not Available [facility] ([facility]) [address] [place], [address], 12/06/2023 16:12:52 11/28/19 24 12/06/2023 METAN EPHRI JERZY, FRAC. , PL. FREE metanephrine , pl 30.3 pg/mL 0.0-88 .0 Not Available [facility] ([facility]) [address] [place], [address], 12/06/2023 16:12:52 11/28/19 24 11/29/2023 COMP. METAB OLIC PANEL (14) glucose 113 mg/dL 70-99 above high normal Not Available [facility] ([facility]) [address] [place], [address], 12/06/2023 16:12:53 11/28/19 24 11/29/2023 COMP. METAB OLIC PANEL (14) BUN 10 mg/dL 6-20 Not Available [facility] ([facility]) [address] [place], [address], 12/06/2023 16:12:53 11/28/19 24 11/29/2023 COMP. METAB OLIC PANEL (14) creatinine 0.69 mg/dL 0.57-1 .00 Not Available [facility] ([facility]) [address] [place], [address], 12/06/2023 16:12:53 11/28/19 24 11/29/2023 COMP. METAB OLIC PANEL (14) eGFR 115 mL/mi n/1.7 3 >59 Not Available [facility] ([facility]) [address] [place], [address], 12/06/2023 16:12:53 11/28/19 24 11/29/2023 COMP. METAB OLIC PANEL (14) BUN/creatini ne ratio 14 9-23 Not Available [facility] ([facility]) [address] [place], [address], 12/06/2023 16:12:53 11/28/19 24 11/29/2023 COMP. METAB OLIC PANEL (14) sodium 139 mmol/ L 134-14 4 Not Available [facility] ([facility]) [address] [facility] [place], [address], 12/06/2023 16:12:53 11/28/19 24 11/29/2023 COMP. METAB OLIC PANEL (14) potassium 4.4 mmol/ L 3.5-5. 2 Not Available [facility] ([facility]) [address] [facility] [place], [address], 12/06/2023 16:12:53 11/28/19 24 11/29/2023 COMP. METAB OLIC PANEL (14) chloride 99 mmol/ L 96-106 Not Available [facility] ([facility]) [address] [facility] [place], [address], 12/06/2023 16:12:53 11/28/19 24 11/29/2023 COMP. METAB OLIC PANEL (14) carbon dioxide, total 26 mmol/ L 20-29 Not Available [facility] ([facility]) [address] [facility] [place], [address], 12/06/2023 16:12:53 11/28/19 24 11/29/2023 COMP. METAB OLIC PANEL (14) calcium 9.5 mg/dL 8.7-10 .2 Not Available [facility] ([facility]) [address] [facility] [place], [address], 12/06/2023 16:12:53 11/28/19 24 11/29/2023 COMP. METAB OLIC PANEL (14) protein, total 6.6 g/dL 6.0-8. 5 Not Available [facility] ([facility]) [address] [facility] [place], [address], 12/06/2023 16:12:53 11/28/19 24 11/29/2023 COMP. METAB OLIC PANEL (14) albumin 4.2 g/dL 3.9-4. 9 Not Available [facility] ([facility]) [address] [facility], [place], [address], 12/06/2023 16:12:53 11/28/19 24 11/29/2023 COMP. METAB OLIC PANEL (14) globulin, total 2.4 g/dL 1.5-4. 5 Not Available [facility] ([facility]) [address] [facility] [place], [address], 12/06/2023 16:12:53 11/28/19 24 11/29/2023 COMP. METAB OLIC PANEL (14) A/G ratio 1.8 1.2-2. 2 Not Available [facility] ([facility]) [address] [facility] [place], [address], 12/06/2023 16:12:53 11/28/19 24 11/29/2023 COMP. METAB OLIC PANEL (14) bilirubin, total 0.3 mg/dL 0.0-1. 2 Not Available [facility] ([facility]) [address] [facility], [place], [address], 12/06/2023 16:12:53 11/28/19 24 11/29/2023 COMP. METAB OLIC PANEL (14) alkaline phosphatase 56 IU/L 44-121 Not Available [facility] ([facility]) [address] [facility] [place], [address], 12/06/2023 16:12:53 11/28/19 24 11/29/2023 COMP. METAB OLIC PANEL (14) AST (SGOT) 14 IU/L 0-40 Not Available [facility] ([facility]) [address] [facility] [place], [address], 12/06/2023 16:12:53 11/28/19 24 11/29/2023 COMP. METAB OLIC PANEL (14) ALT (SGPT) 12 IU/L 0-32 Not Available [facility] ([facility]) [address] [place], [address], 12/06/2023 16:12:53 11/28/19 24 11/29/2023 CBC, PLATE LET, NO DIFFE RENTI AL WBC 6.2 x10e3 /uL 3.4-10 .8 Not Available [facility] ([facility]) [address] [facility], [place], [address], 12/06/2023 16:12:53 11/28/19 24 11/29/2023 CBC, PLATE LET, NO DIFFE RENTI AL RBC 4.70 x10e6 /uL 3.77-5 .28 Not Available [facility] ([facility]) [address] [facility], [place], [address], 12/06/2023 16:12:53 11/28/19 24 11/29/2023 CBC, PLATE LET, NO DIFFE RENTI AL hemoglobin 14.3 g/dL 11.1-1 5.9 Not Available [facility] ([facility]) [address] [facility], [place], [address], 12/06/2023 16:12:53 11/28/19 24 11/29/2023 CBC, PLATE LET, NO DIFFE RENTI AL hematocrit 43.6 % 34.0-4 6.6 Not Available [facility] ([facility]) [address] [facility], [place], [address], 12/06/2023 16:12:53 11/28/19 24 11/29/2023 CBC, PLATE LET, NO DIFFE RENTI AL MCV 93 fL 79-97 Not Available [facility] ([facility]) [address] [facility], [place], [address], 12/06/2023 16:12:53 11/28/19 24 11/29/2023 CBC, PLATE LET, NO DIFFE RENTI AL MCH 30.4 pg 26.6-3 3.0 Not Available [facility] ([facility]) [address] [facility], [place], [address], 12/06/2023 16:12:53 11/28/19 24 11/29/2023 CBC, PLATE LET, NO DIFFE RENTI AL MCHC 32.8 g/dL 31.5-3 5.7 Not Available [facility] ([facility]) [address] [facility], [place], [address], 12/06/2023 16:12:53 11/28/19 24 11/29/2023 CBC, PLATE LET, NO DIFFE RENTI AL RDW 11.9 % 11.7-1 5.4 Not Available [facility] ([facility]) [address] [facility], [place], [address], 12/06/2023 16:12:53 11/28/19 24 11/29/2023 CBC, PLATE LET, NO DIFFE RENTI AL platelets 342 x10e3 /uL 150-45 0 Not Available [facility] ([facility]) [address] [facility], [place], [address], 12/06/2023 16:12:53 02/13/20 24 02/13/2024 urina lysis , dipst ick Leukocytes Trace Not Available In-Offi ce Order Internal Use Only DO Not Attach Compendium DO Not Attach Compendium, Do Not Delete/merge, [id number] 02/13/2024 12:13:43 02/13/20 24 02/13/2024 urina lysis , dipst ick Nitrite negati ve Not Available In-Office Order Internal Use Only DO Not Attach Compendium DO Not Attach Compendium, Do Not Delete/merge, [id number] 02/13/2024 12:13:43 02/13/20 24 02/13/2024 urina lysis , dipst ick Urobilinogen 2 Not Available In-Of fice Order Internal Use Only DO Not Attach Compendium DO Not Attach Compendium, Do Not Delete/merge, [id number] 02/13/2024 12:13:43 02/13/20 24 02/13/2024 urina lysis , dipst ick Protein Trace Not Available In-Office Order Internal Use Only DO Not Attach Compendium DO Not Attach Compendium, Do Not Delete/merge, [facility] 02/13/2024 12:13:43 02/13/20 24 02/13/2024 urina lysis , dipst ick pH 7.5 Not Available In-Office Order Internal Use Only DO Not Attach Compendium DO Not Attach Compendium, Do Not Delete/merge, [facility] 02/13/2024 12:13:43 02/13/20 24 02/13/2024 urina lysis , dipst ick Blood Non-He molyze d: Trace Not Available In-Office Order Internal Use Only DO Not Attach Compendium DO Not Attach Compendium, Do Not Delete/merge, [facility] 02/13/2024 12:13:43 02/13/20 24 02/13/2024 urina lysis , dipst ick Specific [place] 1.015 Not Available In-Off ice Order Internal Use Only DO Not Attach Compendium DO Not Attach Compendium, Do Not Delete/merge, [facility] 02/13/2024 12:13:43 02/13/20 24 02/13/2024 urina lysis , dipst ick Ketone Negati ve Not Available In-Office Order Internal Use Only DO Not Attach Compendium DO Not Attach Compendium, Do Not Delete/merge, [id number] 02/13/2024 12:13:43 02/13/20 24 02/13/2024 urina lysis , dipst ick Bilirubin Negati ve Not Available In-Office Order Internal Use Only DO Not Attach Compendium DO Not Attach Compendium, Do Not Delete/merge, [facility] 02/13/2024 12:13:43 02/13/20 24 02/13/2024 urina lysis , dipst ick Glucose Negati ve Not Available In-Office Order Internal Use Only DO Not Attach Compendium DO Not Attach Compendium, Do Not Delete/merge, 02/13/2024 12:13:43 02/13/20 24 02/13/2024 urina lysis , dipst ick Appearance Clear Not Available In-Offi ce Order Internal Use Only DO Not Attach Compendium DO Not Attach Compendium, Do Not Delete/merge, [id number] 02/13/2024 12:13:43 02/13/20 24 02/13/2024 urina lysis , dipst ick Color Yellow Not Available In-Office Order Internal Use Only DO Not Attach Compendium DO Not Attach Compendium, Do Not Delete/merge, [id number] 02/13/2024 12:13:43 06/22/2006/22/2024 Influ princess virus A [...] jaime Negat jaime, Error 06/22 12:17 PM VIDEO PLAYER MECHANIC [facility] [employer] R LAB Not Available Not Available 09/21/2024 [...] Negat jaime Negat jaime 06/22 12:17 PM VIDEO PLAYER MECHANIC [facility] [email or web address] R LAB Not Available Not Available 09/21/2024 [...] Negat jaime Negat jaime 06/22 12:17 PM VIDEO PLAYER MECHANIC [facility] [email or web address] R LAB Not Available Not Available 09/21/2024 [...] is Not Detec tere) 06/22 12:17 PM VIDEO PLAYER MECHANIC [facility] R LAB Not Available Not Available 09/21/2024 [...] Author izronnie n (EUA) for use by labora torsavage certif ied under the CLIA that meet [...] s Not Available Not Available 09/21/2024 15:22:53 06/22/20 [...] - 12.00 10(3) /mcL 06/22 11:07 AM VIDEO PLAYER MECHANIC [facility] LAB Not Available Not Available 09/21/2024 15:22:53 06/22/2006/22/2024 CBC W Auto Diffe renti al panel - Blood erythrocytes [#/volume] in blood by automated count 4.75 text: 3.80 - 5.30 10(6)/ mcL RBC 4.75 3.80 - 5.30 10(6) /mcL 06/22 11:07 AM VIDEO PLAYER MECHANIC [facility] LAB Not Available Not Available 09/21/2024 15:22:53 06/22/2006/22/2024 CBC W Auto Diffe renti al panel - Blood hemoglobin [mass/volume ] in blood 14.6 g/dL low: 12g/dL high: 15.8g/ dL HEMOG LOBIN (HGB) 14.6 12.0 - 15.8 g/dL 06/22 11:07 AM VIDEO PLAYER MECHANIC [facility] Not Available Not Available 09/21/2024 15:22:53 06/22/20 24 06/22/2024 CBC W Auto Diffe renti al panel - Blood hematocrit [volume fraction] of blood by automated count 43.3 % low: 36%hig h: 47% HEMAT OCRIT (HCT) 43.3 36.0 - 47.0 % 06/22 11:07 AM [facility] R LAB Not Available Not Available 09/21/2024 15:22:53 06/22/2006/22/2024 CBC W Auto Diffe renti al panel - Blood MCV [entitic volume] by automated count 91.2 fL low: 82fLhi gh: 96fL MCV 91.2 82.0 - 96.0 fL 06/22 11:07 AM [facility] LAB Not Available Not Available 09/21/2024 15:22:53 06/22/2006/22/2024 CBC W Auto Diffe renti al panel - Blood MCH [entitic mass] by automated count 30.7 pg low: 26pghi gh: 34pg MCH 30.7 26.0 - 34.0 pg 06/22 11:07 AM [facility] LAB Not Available Not Available 09/21/2024 15:22:53 06/22/2006/22/2024 CBC W Auto Diffe renti al panel - Blood MCHC [mass/volume ] by automated count 33.7 g/dL low: 31g/dL high: 36g/dL MCHC 33.7 31.0 - 36.0 g/dL 06/22 11:07 AM [facility] LAB Not Available Not Available 09/21/2024 15:22:53 06/22/2006/22/2024 CBC W Auto Diffe renti al panel - Blood platelets [#/volume] in blood 363 text: 140 - 440 10(3)/ mcL PLATE LET COUNT 363 140 - 440 10(3) /mcL 06/22 11:07 AM [facility] LAB Not Available Not Available 09/21/2024 15:22:53 06/22/2006/22/2024 CBC W Auto Diffe renti al panel - Blood erythrocyte distribution width [ratio] by automated count 12.5 % low: 11.8%h igh: 15.5% RDW 12.5 11.8 - 15.5 % 06/22 11:07 [facility] Not Available Not Available 09/21/2024 15:22:53 06/22/2006/22/2024 CBC W Auto Diffe renti al panel - Blood platelet mean volume [entitic volume] in blood by automated count 9.5 fL low: 9.7fLh igh: 12.4fL low MPV 9.5 (L) 9.7 - 12.4 fL 06/22 11:07 AM [facility] Not Available Not Available 09/21/2024 15:22:53 06/22/2006/22/2024 CBC W Auto Diffe renti al panel - Blood neutrophils/ 100 leukocytes in blood by automated count 70.8 % low: 47%hig h: 73% NEUTR OPHIL S 70.8 47.0 - 73.0 % 06/22 11:07 AM [facility] Not Available Not Available 09/21/2024 15:22:53 06/22/2006/22/2024 CBC W Auto Diffe renti al panel - Blood lymphocytes/ 100 leukocytes in blood by automated count 20.9 % low: 18%hig h: 42% LYMPH OCYTE S 20.9 18.0 - 42.0 % 06/22 11:07 AM [facility] Not Available Not Available 09/21/2024 15:22:53 06/22/2006/22/2024 CBC W Auto Diffe renti al panel - Blood monocytes/10 0 leukocytes in blood by automated count 7.4 % low: 4%high : 12% MONOC YTES 7.4 4.0 - 12.0 % 06/22 11:07 AM [facility] Not Available Not Available 09/21/2024 15:22:53 06/22/2006/22/2024 CBC W Auto Diffe renti al panel - Blood eosinophils/ 100 leukocytes in blood by automated count 0.5 % low: 0%high : 5% EOSIN OPHIL S 0.5 0.0 - 5.0 % 06/22 11:07 AM [facility] LAB Not Available Not Available 09/21/2024 15:22:53 06/22/20 24 06/22/2024 CBC W Auto Diffe renti al panel - Blood basophils/10 0 leukocytes in blood by automated count 0.4 % low: 0%high : 1% BASOP HILS 0.4 0.0 - 1.0 % 06/22 11:07 AM [facility] LAB Not Available Not Available 09/21/2024 15:22:53 06/22/20 24 06/22/2024 CBC W Auto Diffe renti al panel - Blood neutrophils [#/volume] in blood by automated count 5.3 text: 1.60 - 7.70 10(3)/ mcL ABSOL CAHTO NEUTR OPHIL S 5.30 1.60 - 7.70 10(3) /mcL 06/22 11:07 AM [facility] [employer] R LAB Not Available Not Available 09/21/2024 15:22:53 06/22/20 24 06/22/2024 CBC W Auto Diffe renti al panel - Blood lymphocytes [#/volume] in blood by automated count 1.56 text: 1.30 - 3.20 10(3)/ mcL ABSOL CAHTO LYMPH OCYTE S 1.56 1.30 - 3.20 10(3) /mcL 06/22 11:07 AM [facility] LAB Not Available Not Available 09/21/2024 15:22:53 06/22/2006/22/2024 CBC W Auto Diffe renti al panel - Blood monocytes [#/volume] in blood by automated count 0.55 text: 0.20 - 1.00 10(3)/ mcL ABSOL CAHTO MONOC YTES 0.55 0.20 - 1.00 10(3) /mcL 06/22 11:07 AM [facility] LAB Not Available Not Available 09/21/2024 15:22:53 06/22/20 24 06/22/2024 CBC W Auto Diffe renti al panel - Blood eosinophils [#/volume] in blood by automated count 0.04 text: 0.00 - 0.40 10(3)/ mcL ABSOL CAHTO EOSIN OPHIL 0.04 0.00 - 0.40 10(3) /mcL 06/22 11:07 AM VIDEO PLAYER MECHANIC [facility] [employer] LAB Not Available Not Available 09/21/2024 15:22:53 06/22/20 24 06/22/2024 CBC W Auto Diffe renti al panel - Blood basophils [#/volume] in blood by automated count 0.03 text: 0.00 - 0.10 10(3)/ mcL ABSOL CAHTO BASOP HILS 0.03 0.00 - 0.10 10(3) /mcL 06/22 11:07 AM VIDEO PLAYER MECHANIC [facility] [email or web address] [facility] LAB Not Available Not Available 09/21/2024 15:22:53 06/22/2006/22/2024 CBC W Auto Diffe renti al panel - Blood nucleated erythrocytes /100 leukocytes [ratio] in blood 0 NRBC PER 100 WBC 0 06/22 11:07 AM [facility] [employer] R LAB Not Available Not Available 09/21/2024 [...] <0.50 mcg/m L FEU 06/22 11:24 AM [facility] [employer] [facility] Not Available Not Available 09/21/2024 [...] - 145 mmol/ L 06/22 11:27 AM VIDEO PLAYER MECHANIC [facility] R LAB Not Available Not Available 09/21/2024 15:22:53 06/22/2006/22/2024 Compr ehens jaime metab olic 1999 panel - Serum or Plasm a potassium [moles/volum e] in serum or plasma 3.7 mmol/ L low: 3.5mmo l/Lhig h: 5.1mmo l/L POTAS SIUM 3.7 3.5 - 5.1 mmol/ L 06/22 11:27 AM VIDEO PLAYER MECHANIC [facility] R LAB Not Available Not Available 09/21/2024 15:22:53 06/22/2006/22/2024 Compr ehens jaime metab olic 1999 panel - Serum or Plasm a chloride [moles/volum e] in serum or plasma 101 mmol/ L low: 98mmol /Lhigh : 107mmo l/L CHLOR KAYLA 101 98 - 107 mmol/ L 06/22 11:27 AM VIDEO PLAYER MECHANIC [facility] H CENTE R LAB Not Available Not Available 09/21/2024 15:22:53 06/22/2006/22/2024 Compr ehens jaime metab olic 2000 panel - Serum or Plasm a carbon dioxide, total [moles/volum e] in serum or plasma 27 mmol/ L low: 22mmol /Lhigh : 30mmol /L CO2, VENOU S 27 22 - 30 mmol/ L 06/22 11:27 AM [facility] Not Available Not Available 09/21/2024 15:22:53 06/22/20 24 06/22/2024 Compr ehens jaime metab olic 2000 panel - Serum or Plasm a anion gap in serum or plasma 14.7 mmol/ L high: 18mmol /L ANION GAP 14.7 <18.0 mmol/ L 06/22 11:27 AM [facility] Not Available Not Available 09/21/2024 15:22:53 06/22/20 24 06/22/2024 Compr ehens jaime metab olic 2000 panel - Serum or Plasm a glucose [mass/volume ] in serum or plasma 84 mg/dL low: 70mg/d Lhigh: 99mg/d L GLUCO SE 84 70 - 99 mg/dL 06/22 11:27 AM [facility] Not Available Not Available 09/21/2024 15:22:53 06/22/20 24 06/22/2024 Compr ehens jaime metab olic 2000 panel - Serum or Plasm a urea nitrogen [mass/volume ] in serum or plasma 12 mg/dL low: 5mg/dL high: 18mg/d L BUN 12 5 - 18 mg/dL 06/22 11:27 AM [facility] [place] [facility] Not Available Not Available 09/21/2024 15:22:53 06/22/2006/22/2024 Compr ehens jaime metab olic 2000 panel - Serum or Plasm a creatinine [mass/volume ] in serum or plasma 0.78 mg/dL low: 0.6mg/ dLhigh : 1mg/dL CREAT ININE , BLOOD 0.78 0.60 - 1.00 mg/dL 06/22 11:27 AM [facility] [place] [facility] Not Available Not Available 09/21/2024 15:22:53 06/22/20 24 06/22/2024 Compr [employer] jaime metab olic 1999 panel - Serum or Plasm a urea nitrogen/cre atinine [mass ratio] in serum or plasma 15 text: 12 - 20 ratio BUN/C REATI NINE RATIO 15 12 - 20 ratio 06/22 11:27 AM [facility] [place] [facility] [employer] [facility] Not Available Not Available 09/21/2024 15:22:53 06/22/20 24 06/22/2024 Compr [employer] jaime metab olic 1999 panel - Serum or Plasm a protein [mass/volume ] in serum or plasma 6.9 g/dL low: 6.3g/d Lhigh: 8.2g/d L TOTAL PROTE IN 6.9 6.3 - 8.2 g/dL 06/22 11:27 AM [facility] [place] [facility] [employer] [facility] Not Available Not Available 09/21/2024 15:22:53 06/22/2006/22/2024 Compr [employer] jaime metab olic 1999 panel - Serum or Plasm a albumin [mass/volume ] in serum or plasma 4 g/dL low: 3.5g/d Lhigh: 5g/dL ALBUM IN 4.0 3.5 - 5.0 g/dL 06/22 11:27 AM [facility] [place] [facility] [employer] [facility] Not Available Not Available 09/21/2024 15:22:53 06/22/2006/22/2024 Compr [employer] jaime metab olic 1999 panel - Serum or Plasm a albumin/glob ulin [mass ratio] in serum or plasma 1.4 low: 1high: 2.2 A/G RATIO 1.4 1.0 - 2.2 06/22 11:27 AM [facility] [place] [facility] [employer] [facility] Not Available Not Available 09/21/2024 15:22:53 06/22/2006/22/2024 Compr [employer] jaime metab olic 1999 panel - Serum or Plasm a calcium [mass/volume ] in serum or plasma 9.4 mg/dL low: 8.7mg/ dLhigh : 10.5mg /dL CALCI UM 9.4 8.7 - 10.5 mg/dL 06/22 11:27 AM [facility] [place] [facility] Not Available Not Available 09/21/2024 15:22:53 06/22/2006/22/2024 Compr ehens jaime metab olic 1999 panel - Serum or Plasm a bilirubin.to luly [mass/volume ] in serum or plasma 0.4 mg/dL low: 0.2mg/ dLhigh : 1.2mg/ dL T BILI 0.4 0.2 - 1.2 mg/dL 06/22 11:27 AM [facility] [place] [facility] Not Available Not Available 09/21/2024 15:22:53 06/22/2006/22/2024 Compr ehens jaime metab olic 2000 panel - Serum or Plasm a aspartate aminotransfe rase [enzymatic activity/vol ume] in serum or plasma 18 U/L low: 5U/Lhi gh: 34U/L SGOT (AST) 18 5 - 34 U/L 06/22 11:27 AM [facility] [place] [facility] Not Available Not Available 09/21/2024 15:22:53 06/22/2006/22/2024 Compr ehens jaime metab olic 2000 panel - Serum or Plasm a alanine aminotransfe rase [enzymatic activity/vol ume] in serum or plasma 15 U/L low: 0U/Lhi gh: 55U/L SGPT (ALT) 15 0 - 55 U/L 06/22 11:27 AM [facility] [place] [facility] Not Available Not Available 09/21/2024 15:22:53 06/22/2006/22/2024 Compr ehens jaime metab olic 2000 panel - Serum or Plasm a alkaline phosphatase [enzymatic activity/vol ume] in serum or plasma 66 U/L low: 40U/Lh igh: 150U/L ALKAL INE PHOSP HATAS E 66 40 - 150 U/L 06/22 11:27 AM [facility] [place] [place] [facility] Not Available Not Available 09/21/2024 15:22:53 06/22/20 24 06/22/2024 Compr ehens jaime metab olic 2000 panel - Serum or Plasm a glomerular filtration rate/1.73 sq M.predicted among non-blacks [volume rate/area] in serum, plasma or blood by creatinine-b ased formula (MDRD) low: 60 GFR, ESTIM ATED >60 >=60 06/22 11:27 AM [employer] [facility] Not Available Not Available 09/21/2024 15:22:53 06/22/2006/22/2024 Compr ehens jaime metab olic 2000 panel - Serum or Plasm a glomerular filtration rate/1.73 sq M.predicted among blacks [volume rate/area] in serum, plasma or blood by creatinine-b ased formula (MDRD) low: 60 GFR, EST. AFRIC AN >60 >=60 06/22 11:27 AM [employer] [facility] Not Available Not Available 09/21/2024 15:22:53 06/22/2006/22/2024 Compr ehens jaime metab olic 2000 panel - Serum or Plasm a glomerular filtration rate/1.73 sq M.predicted among non-blacks [volume rate/area] in serum, plasma or blood by creatinine-b ased formula (MDRD) low: 60 GFR, EST. NONAF RICAN >60 >=60 06/22 11:27 AM [employer] [facility] Not Available Not Available 09/21/2024 15:22:53 06/22/2006/22/2024 Compr [employer] jaime metab olic 2000 panel - Serum or Plasm a interpretati on and review of laboratory results Normal Not Available Not Available 08/30 15:22:53 08/06/1908/10/2024 IGP, RFX APTIM A HPV ASCU diagnosis: COMMEN T NEGAT JAIME FOR INTRA EPITH ELIAL LESIO N OR GINA GARG . CELLU LAR [place] ES ASSOC IATED WITH INFLA MMATI ON ARE PRESE NT. Not Available [facility] ([facility]) [address] [facility], [place], [address], 08/10/2024 11:10:59 01/09/20 25 08/10/2024 IGP, RFX APTIM A HPV ASCU specimen adequacy: BRYAN Griffiths Satis facto ry for evalu ation . No endoc ervic al compo nent is ident ified . Not Available [facility] ([facility]) [address] [place], [address], 08/10/2024 11:10:59 08/06/19 25 08/10/2024 IGP, RFX APTIM A HPV ASCU clinician provided ICD10: BRYAN Griffiths Z01.4 19 Not Available [facility] ([facility]) [address] [place], [address], 08/10/2024 11:10:59 08/06/19 25 08/10/2024 IGP, RFX APTIM A HPV ASCU performed by: Siria Peñaor y Cytot caitlin griffiths (ASCP ) Not Available [facility] ([facility]) [address] [facility], [place], [address], 08/10/2024 11:10:59 08/06/19 25 08/10/2024 IGP, RFX APTIM A HPV ASCU . . Not Available [facility] ([facility]) [address] [place], [address], 08/10/2024 11:10:59 08/06/19 25 08/10/2024 IGP, RFX [...] ts do occur . Not Available [facility] ([facility]) [address] [place], [address], 08/10/2024 11:10:59 08/06/19 25 08/10/2024 IGP, RFX APTIM A HPV ASCU test methodology: COMMEN T This liqui d based ThinP rep(R ) pap test was giana rodríguez with the use of an image guide jakob burkett Not Available [facility] ([facility]) [address] [facility], [place], [address], 08/10/2024 11:10:59 08/06/19 25 08/10/2024 IGP, RFX APTIM A HPV ASCU . COMMEN T The HPV DNA refle x crite hunter were not met with this speci men resul t there fore, no HPV testi ng was perfo rmed. Not Available [facility] ([facility]) [address] [facility], [place], [address], 08/10/2024 11:10:59 Result Notes None recorded. Problems Name Problem SNOMED Code Status Onset Date Resolution Date Notes Provider Name and Address Organization Details Recorded Time Kidney stone 06217330 Active 2018 -seeing urologist / Us 05/20 -r/mild hydroneph rosis Paulie Macias MD Attn: Lin herron,[address] [facility], [place], [address], [place] [facility] 4 14:29:41 Hyperlip idemia 68245218 Active 2022 Paulie Macias MD Attn: Lin herron,[address] [facility], [place], [address], [place] [facility] 3 14:40:48 Low back pain 299030951 Active 2022 Paulie Macias MD Attn: Lin herron,[address] [facility], [place], [address], [place] [facility] 3 08:55:28 Headache 28051115 Active MRI 01/2021- ok-sees neuro Paulie Macias MD Attn: Lin herron,[address] [facility], [place], [address], [facility] 3 08:43:07 Neurofib romatosi s Active Paulie Macias MD Attn: Lin herorn,[address] [facility], [place], [address], [facility] 2 12:35:31 Elevated blood-pr essure reading without diagnosi s of hyperten raul 686926526 Completed 08/20/2016 Paulie Macias MD Attn: Lin herron,[address] [facility], [place], [address], [facility] 7 16:18:28 Backache 143837597 Active Paulie Macias MD Attn: Lin herron,[address] [facility], [place], [address], [facility] 2 12:35:31 [facility]ia l hyperten raul 71371807 Active 2016 Paulie Macias MD Attn: Lin herron,[address] [facility], [place], [address], [facility] 2 12:35:31 Mixed anxiety and depressi ve disorder 157004655 Active 2016 Paulie Macias MD Attn: Lin herron,[address] [facility], [place], [address], [facility] 2 12:35:31 Problem Notes None recorded. Procedures Surgical History Date Name Laterality Status Provider Name and Address Organization Details Recorded Time 5 Date of Last Pap Smear completed Yudith Miranda RN [facility] 08/10/2024 11:14:50 9 Colposcopy completed Jacinta Wadsworth MD Attn: Accounting,[address] [facility], [place], [address], [facility] 06/08/2019 14:55:53 0 Tubal Ligation completed Yudith Miranda RN [facility] 03/09/2015 15:13:05 Caesarean Section completed Yudith Miranda RN [place] - [facility] 03/09/2015 15:13:05 Imaging Results None recorded. Procedure Notes None recorded. Medical Equipment None Reported. Allergies Allergen ID Allergen Name Allergen Category Reaction Reaction Severity Criticality Documentation Date Start Date Code Code System Note Provider Name and Address Organization Details Recorded Time 342373 Cymbalta medicatio n abdominal pain severe Not available 03/23/20192018 26662 4 RxNorm JAYSHREE Schaeffer, [facility] 9 16:38:07 25067 peanut allergeni c extract food,medi cation other severe Not available 10/22/2014 66324 8 RxNorm sores in mouth EMMANUEL Lira, [facility] 5 14:59:57 Medications Name Sig Start Date Stop Date Status Note LastModified by Organization Details LastModified Time cyclobenz aprine 10 mg tablet TAKE 1 [...] Not Available cetirizin e 10 mg tablet active Not Available Not Available Not Available azithromy yasmeen 250 mg tablet TAKE [...] 150 mg capsule,e xtended release 24 hr Take 1 capsule by mouth once daily active Not Available Not Available No t [...] 150 mg 24 hr tablet, extended release TAKE 1 TABLET BY MOUTH ONCE DAILY NEEDS APPT FOR REFILLS 2024 active Not Available Not Available Not [...] Updated DateTime 08/06/2024 157.48 cm 25.8 kg/m2 77960.81 g 136 mm[Hg] 97 mm[Hg] Afshan Kasper [facility] 5 10:37:11 Date Recorded Body height Body mass index (BMI) Body weight Heart rate Respiratory rate Body temperature Oxygen saturation Oxygen saturation in Arterial blood by Pulse oximetry Systolic blood pressure Diastolic blood pressure Provider Name and Address Organization Details Last Updated DateTime 4 157.48 cm 26 kg/m2 58881.1 9 g 97 /min 14 /min 98.4 [degF] 97 % 97 % 123 mm[Hg] 89 mm[Hg] Ewelina Hannah MA [facility] 4 09:35:45 Date Recorded Body height Body mass index (BMI) Body weight Heart rate Respiratory rate Body temperature Oxygen saturation Oxygen saturation in Arterial blood by Pulse oximetry Systolic blood pressure Diastolic blood pressure Provider Name and Address Organization Details Last Updated DateTime 4 157.48 cm 25.7 kg/m2 27516.4 5 g 92 /min 14 /min 97.8 [degF] 97 % 97 % 126 mm[Hg] 89 mm[Hg] Britt Chapin MA [facility] 4 09:40:34 Date Recorded Body height Body mass index (BMI) Body weight Heart rate Respiratory rate Body temperature Oxygen saturation Oxygen saturation in Arterial blood by Pulse oximetry Systolic blood pressure Diastolic blood pressure Provider Name and Address Organization Details Last Updated DateTime 4 157.48 cm 25.7 kg/m2 74064.3 7 g 100 /min 16 /min 97.8 [degF] 99 % 99 % 128 mm[Hg] 88 mm[Hg] Britt Chapin MA [facility] 4 12:11:50 Social History Question Answer Notes LastModified by Organizat ion Details LastModified Time Tobacco Smoking Status Never Smoker Vivian Hilario MA [facility], [facility] 10/22/2014 14:59:57 Do You Have An Advance Directive? No Information not available 12/25/2019 Are You Blind Or Do You Have Difficulty Seeing? Yes Glasses Information not available 06/13/2021 What Is Your Level Of Caffeine Consumption? None Quit Caffiene 01/01 [email or web address] Information not available 01/01/2022 How Much Tobacco Do You Chew? None Information not available 05/21/2016 In The 14 Days Before Symptom Onset, Have You Had Close Contact With A Laboratory-confir med COVID-19 While That Case Was Ill? No Information not available 10/27/2019 In The 14 Days Before Symptom Onset, Have You Had Close Contact With A Person Who Is Under Investigation For COVID-19 While That Person Was Ill? No Information not available 10/27/2019 Have You Been To An Area Known To Be High Risk For COVID-19? No Information not available 10/27/2019 Are You Deaf Or Do You Have Serious Difficulty Hearing? No [email or web address] Information not available 11/25/2020 What Type Of Diet Are You Following? REGULAR Information not available 05/21/2016 Which Illicit Or Recreational Drugs Have You Used? Denies Information not available 05/21/2016 Education 12 Information no t available 02/11/2017 What Is The Highest Grade Or Level Of School You Have Completed Or The Highest Degree You Have Received? [id number] [email or web address] Information not available 11/25/2020 Are There Any Guns Present In Your Home? No Information not available 10/27/2019 Hard Of Hearing Or Deaf In One Or Both Ears? No Information not available 12/25/2019 Legally Blind In One Or Both Eyes? No Information no t available 12/25/2019 Marital Status Informatio n not available 05/21/2016 What Was The Date Of Your Most Recent Tobacco Screening? 08/03/2024 [email or web address] Information not available 08/03/2024 Performs Monthly Self-breast Exam? No Information no t available 12/25/2019 What Is Your Relationship Status? Information not available 06/13/2021 Do You Use Your Seat Belt Or Car Seat Routinely? Yes Information not available 05/18/2022 Seat Belts Used Routinely Yes Information not available 10/27/2019 Smoke Alarm In Home Yes Information not available 10/27/2019 Do You Have Smoke And Carbon Monoxide Detectors In Your Home? Yes [email or web address] Information not available 11/25/2020 How Much Tobacco Do You Smoke? No Information not available 10/27/2019 General Stress Level High Information not available 10/27/2019 Do You Use Sunscreen Routinely? Yes Information not available 10/27/2019 Has Tobacco Cessation Counseling Been Provided? No [email or web address] Information not available 06/02/2021 Sex: Female Functional Status Question Answer Note LastModified by Organizat ion Details LastModified Time Do you use any illicit or recreational drugs? No [email or web address] Information not available 01/27/2021 Do you or have you ever used any other forms of tobacco or nicotine? No Information not available 11/25/2020 What is your level of alcohol consumption? None [email or web address] Information not available 10/22/2014 Do you or have you ever used smokeless tobacco? Never used smokeless tobacco Information not available 10/27/2019 Are you currently employed? Yes Information not available 11/25/2020 Are you able to care for yourself? 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 Never used electronic cigarettes Information not available 10/27/2019 What is your exercise level? None walking Information not available 06/13/2021 Mental Status Question Answer Note LastModified by Organization D etails LastModified Time Do you feel stressed (tense, restless, nervous, or anxious, or unable to sleep at night)? [id number] Information not available 11/21/2023 Family History Relationship Description Onset Age of this Age Resolved Age Notes LastModified by Organization Details LastModified Time Mother History of hypertension Not available 15:58:26 Mother Family history of neurofibroma tosis Not available 2016 15:59:25 Notes:no breast ca hx Medical History Condition Response Coronary Artery Disease N Atrial Fibrillation N High Blood Pressure Y Kidney or Bladder Problems N Thyroid Problems N GI Problems N Depression Y COPD N Blood Clots N Skin Problems N Anemia N Heart Attack (ME) N Anxiety Disorder Y Diabetes N Muscle, Joint, or Bone Problems N Seizures/Epilepsy N Acid Reflux (GERD) N Cancer N Urinary Tract Infection Y Stroke N Asthma Y Allergies Y High Cholesterol N Hepatitis N Liver Disease N Headaches Y Heart Failure N Gynecological History Statement/Question Response [...] split virus, quadrivalent, preservative 5 completed Afshan [place]asper R[place], [place] [facility] 06/06/2022 16:39:23 HPV, quadrivalent 3 completed Afshan [place]asper [place] [facility] 06/06/2022 16:39:23 Hep A, adult 3 completed Afshan [place]asper [place] [facility] 06/06/2022 16:39:23 Tdap 3 completed Afshan Kasper [place] [facility] 06/06/2022 16:39:23 Influenza, split virus, quadrivalent, preservative 6 completed Not Available [facility] 08/15/2019 02:44:48 Tdap 7 completed Not Available [facility] 08/15/2019 02:40:22 Past Encounters Encounter ID Performer Location Encounter Start Date Encounter Closed Date Diagnosis/Indication Diagnosis SNOMED-CT Code Diagnosis ICD10 Code Diagnosis Note [id number] [facility] [address] [place] [address] 10/22/2014 14:32:40 10/22/2014 16:50:50 Headache [id number] chronic NAQVI- was seeing neuro, missed f/u Ran out Topamax Restart med pt also under lots of stress- consider antidepres dulce maria if problem persists Elevated blood-pressure reading without diagnosis of hypertension 453514532 Start Propranolo l which helps with NAQVI as well [id number] [facility] [address] [place] [address] 11/05/2014 13:59:00 11/05/2014 14:43:50 Headache 07095616 chronic NAQVI- was seeing neuro, missed f/u Continue Topamax/ Propranolo l pt also under lots of stress- consider antidepres dulce maria if problem persists Elevated blood-pressure reading without diagnosis of hypertension 180750502 continue Propranolo l which helps with NAQVI as well [id number] Jacinta Wadsworth MD [facility] ([facility]) [address] [facility] [address] [place], [place] [address], [place] [address] 04/01/2015 13:55:49 04/01/2015 14:33:39 Gynecologic examination 15225162 [id number] [facility] [address] [place] [address] 04/25/2015 10:41:31 04/25/2015 11:23:26 Headache 92497237 chronic NAQVI- seeing neuro Continue Topamax/ Propranolo l pt also under lots of stress- consider antidepres dulce maria if problem persists Administra tion of influenza vaccine 87458596 Backache 461570494 [id number] [facility] [address] [place] [address] 05/21/2016 16:26:16 05/22/2016 11:49:49 Headache 15400114 R51 chronic NAQVI-pt stopped seeing neuro Continue Topamax/ Propranolo l pt also under lots of stress due to recent separation from her Administra tion of influenza vaccine 46551586 Z23 Mixed anxi ety and depressive disorder 688195766 F41.8 pt declined meds /counselli ng observe without meds Adult heal th examination 606214143 Z00.01 healthy diet and exercise discussed with pt [id number] [facility] [address] [facility] [address] [address] 06/29/2016 10:30:00 06/29/2016 11:59:28 Gynecologic examination 53314148 Z01.941 [id number] [facility] [address] [address] 08/20/2016 14:57:05 08/20/2016 17:12:52 Headache 79455672 R51 chronic NAQVI Continue Topamax/ Propranolo l Acute bronchitis 4186290 2 J20.9 increase fluid Essential hypertension 81600890 I10 elevated due to noncomplia nt with medpt to restart propranolo l [id number] [facility] [address] [address] 10/19/2016 09:18:37 10/19/2016 11:54:45 Headache 96780544 R51 chronic NAQVI Continue Topamax/ Propranolo l Essential hypertension 48188810 I10 improvingp t to continue propranolo l Administra tion of diphtheria, pertussis, and tetanus vaccine 790163944 Z23 Acute bronchitis 6630249 2 J20.9 increase fluid [id number] [facility] [address] [address] 01/18/2017 10:14:31 01/18/2017 16:04:57 Mixed anxiety and depressive disorder 679790875 F41.8 start pt on Prozac dailypt to make apt with counsellor [id number] MD Erica Ninohalto (Adult Med) [address] [address] 02/11/2017 14:14:09 02/11/2017 16:32:54 Essential hypertension 12571776 I10 improvingp t to continue propranolo l Mixed anxi ety and depressive disorder 265231929 F41.8 Improvingc ontinue Prozac daily Headache 62961790 R51 stable Continue Topamax/ Propranolo l [id number] MD Erica N[facility]ohalto (Adult Med) [address] [place] [address] 03/13/2017 08:46:12 03/18/2017 15:30:56 Mixed anxiety and depressive disorder 233321121 F41.8 pt to increase Prozac dailypt to see counsellor [id number] Jacinta Wadsworth MD [facility] ([facility] 205) [address] [facility] [address] [place] [address] 07/01/2017 15:07:36 07/02/2017 10:28:09 Body mass index 25-29 - overweight 887284475 Z68.29 Gynecologi c examination 42339598 Z01.572 [id number] MD Erica N[facility]oh[facility]to (Adult Med) [address] [place] [address] 09/25/2017 14:45:19 09/25/2017 16:54:22 Headache 66593683 R51 Not well controlled due to noncomplia nt with med pt to restart Topamax/ Propranolo l Mixed anxi ety and depressive disorder 505369899 F41.8 pt to restart Prozac daily Essential hypertension 21973328 I10 not well controlled pt to restart propranolo l [id number] [facility] [address] [place] [address] 11/25/2017 14:38:07 11/26/2017 08:52:17 Mixed anxiety and depressive disorder 539627256 F41.8 pt to increase Prozac 40 mg daily Essential hypertension 48153639 I10 fair controlpt to continue propranolo l Headache 57190997 R51 fair control pt to increase Topamax continue Propranolo l Low back pain 712473170 M54.5 heat therapy [id number] MD Jaclyn Nino (Adult Med) [address] [address] 02/24/2018 15:39:16 02/24/2018 17:08:48 Essential hypertension 04048577 I10 stablept to continue propranolo l Headache 37865317 R51 stable pt to continue Topamax 50mg bid continue Propranolo l Mixed anxi ety and depressive disorder 807177453 F41.8 not well controlled due to noncomplia nt with medpt to restart Prozac 20 mg daily for a wk and then increase to 40 mg daily [id number] [facility] [address] [place] [address] 04/16/2018 09:13:49 04/17/2018 10:35:10 Essential hypertension 65461207 I10 stablept to continue propranolo l Headache 97629848 R51 not well controlled pt to increase Topamax 50mg 2 tab am and 1 tab pm Increase Propranolo l 60 mg bid Mixed anxi ety and depressive disorder 442550829 F41.8 Improvingp t to restart Prozac 40 mg dailyAdd Trazodone for sleep [id number] Paulie Macias MD [facility] (Adult Med) [address] [place] [address] 06/11/2018 08:02:50 06/11/2018 14:06:33 Acute bronchitis 77692139 J20.9 check cxr to r/o pneumoniai ncrease fluid Essential hypertension 01538185 I10 stablept to continue propranolo l Mixed anxi ety and depressive disorder 457314752 F41.8 Improvingp t to continue Prozac 40 mg daily /Trazodone for sleep Headache 68635707 R51 improving pt to continue Topamax 50mg 2 tab am and 1 tab pm continue Propranolo l 60 mg bid [id number] MD Hardy Streeter 14 OB [address] [facility] [address] [place] [address] 1 09/23/2018 11:06:24 09/23/2018 16:03:05 Gynecologic examination 57139926 Z01.419 Menorrhagia 606290097 N9 2.0 [id number] MD Hardy Streeter 14 OB [address] [facility] [address] [place], [place] [address] [address] 03/10/2019 16:10:51 03/11/2019 11:32:23 Gynecologic examination 48306314 Z01.419 Low grade squamous intraepithelial lesion on cervical Papanicolaou smear 9637070589 9105 R87.483 [id number] [facility] [address] [place] [address] 03/17/2019 12:04:33 03/18/2019 11:01:50 Essential hypertension 09661638 I10 stablept to continue propranolo l Mixed anxi ety and depressive disorder 647107244 F41.8 noncomplia nt with Prozac -wants to try different med -will try cymbalta which helps with pain as well Headache 94325209 R51 noncomplia nt with med pt to continue Topamax continue Propranolo l 60 mg bid [id number] Jacinta Wadsworth MD Tennga 14 OB [address] [facility] [address] [place], [place] [address], [place] [address] 06/08/2019 14:34:48 06/09/2019 11:53:10 Low grade squamous intraepithelial lesion on cervical Papanicolaou smear 4746711557 9105 R87.852 [id number] [facility] [address] [place] [address] 10/27/2019 11:10:28 10/27/2019 15:59:58 Upper respiratory infection 67288154 J06.9 keep good hydrations raissa home /precautio n Mixed anxi ety and depressive disorder 615879008 F41.8 noncomplia nt with med.-couns elled Headache 49503673 R51 noncomplia nt with med pt to continue Topamax continue Propranolo l 60 mg bid Essential hypertension 72036564 I10 pt to continue propranolo l [id number] [facility] [address] [place] [address] 4 12/25/2019 08:07:46 12/28/2019 09:12:24 Bilateral earache 591863260 H92.03 with dental pain/soret hroat .keep hydration/ salt water gargle [id number] [facility] [address] [facility] [place] [address] 01/07/2020 08:40:02 01/08/2020 05:13:03 Mixed anxiety and depressive disorder 479647056 F41.8 pt stopped lexapro due to dizziness -pt thinks she does not need med at this timemonito r without med Essential hypertension 57431693 I10 pt to continue propranolo l Headache 86146646 R51 improving pt is requesting something to take at night for sleep -will add nortriptyl ine pt to continue Topamax continue Propranolo l 60 mg bid [id number] [facility] [address] [place] [address] 11/25/2020 14:22:15 11/26/2020 11:00:20 Essential hypertension 38944799 I10 non compliant with med -counselle d /pt to continue propranolo l Headache 05665156 R51.9 chronic NAQVI- seeing neuro Continue Topamax/ Propranolo l pt also under lots of stress- consider antidepres dulce maria if problem persists Mixed anxi ety and depressive disorder 400928469 F41.8 pt stopped lexapro due to dizziness -pt thinks she does not need med at this timemonito r without med Urinary symptoms 4581390 08 R39.9 keep good hydration / urine dipstick-n eg Low back pain 279445611 M54.5 heat therapy Exercise/ cyclobenza prin hs [id number] [facility] [address] [place] [address] 01/27/2021 14:20:41 01/31/2021 12:55:07 Essential hypertension 63326920 I10 pt to discontinu e propranolo l ( avoid b jacobo in this pt)-pt to take verapamil Mixed anxi ety and depressive disorder 954567611 F41.8 pt stopped lexapro due to dizziness - pt to try venlafaxin e Headache 57905347 R51.9 Continue Topamax- pt also under lots of stresspt to see neuro as well Neurofibro matosis type 1 50049145 Q85.01 Informed pt to see Dough Brake Machine Operator for early breast cancer screeningR efer to neuro-will screen for pheo with next blood draw Screening mammography 24 108764 Z12.31 [id number] MD Hardy Streeter 14 OB [address] [facility] [address] [place] [address] 06/02/2021 13:40:34 06/05/2021 07:50:57 Gynecologic examination 22713611 Z01.419 Irregular periods 061202 07 N92.6 [id number] MD Erica Ninohalto (Adult Med) [address] [place] [address] 06/13/2021 12:06:22 06/14/2021 10:54:56 Essential hypertension 12977825 I10 pt to discontinu e propranolo l ( avoid b jacobo in this pt)-pt to take verapamil Mixed anxi ety and depressive disorder 921855836 F41.8 (pt stopped lexapro due to dizziness )- pt is feeling better on venlafaxin e Headache 55184843 R51.9 Continue Topamax- pt to f/u with neuro Toothache 86709405 K08.8 9 with gingivitis - pt has apt to see dentist tomorrow-w ill give antibiotic [id number] [facility] [address] [place] [address] 10/27/2021 11:56:49 10/29/2021 09:51:05 Essential hypertension 25819447 I10 pt to discontinu e propranolo l ( avoid b jacobo in this pt)-pt to continue verapamil Mixed anxi ety and depressive disorder 399267871 F41.8 (pt stopped lexapro due to dizziness )fair control- pt to increase venlafaxin e 150mg daily Headache 15357644 R51.9 pt to increase Topamax- pt to f/u with neuro -will refer again Low back pain 978248121 M54.50 -exercise /heat therapyadd cyclobenza ena with ibuprofen [id number] MD Erica Ninohalto (Adult Med) [address] [place] [address] 01/01/2022 10:32:59 01/02/2022 08:29:25 Upper respiratory infection 07753510 J06.9 keep good hydration- benzonante tid prn Essential hypertension 67688688 I10 bp is elevated due to non-compli ant-pt stopped taking verapamil and wants to try different med- pt to start valsartanh ct ( s/p LRT) Mixed anxi ety and depressive disorder 921196701 F41.8 (pt stopped lexapro due to dizziness )fair control- pt to continue venlafaxin e 150mg daily Headache 67723402 R51.9 pt to continue Topamax- pt to f/u with neuro [id number] MD Jaclyn Nino (Adult Med) [address] [place] [address] 02/09/2022 12:19:51 02/12/2022 08:50:41 Essential hypertension 74916355 I10 improving- pt stopped taking verapamil and wants to try different med- pt to continue valsartanh ct ( s/p LRT) Mixed anxi ety and depressive disorder 579478108 F41.8 (pt stopped lexapro due to dizziness )fair control- pt to continue venlafaxin e 150mg daily Headache 82590974 R51.9 pt to continue Topamax- pt to f/u with neuro Hyperlipidemia 70226551 E78.5 healthy diet and exercise discussed with pt [id number] MD Jaclyn Nino (Adult Med) [address] [place] [address] 05/18/2022 14:14:16 05/21/2022 13:13:48 Influenza vaccination declined 369845725 Z28.21 Essential hypertension 52710785 I10 improving- pt stopped taking verapamil and wants to try different med- pt to continue valsartanh ct ( s/p LRT) Mixed anxi ety and depressive disorder 935801043 F41.8 (pt stopped lexapro due to dizziness )fair control- pt to continue venlafaxin e 150mg daily Headache 68207716 R51.9 pt to lower Topamax 50mg bid since pt is loosing wt and low appetite- pt to f/u with neuro Gastritis 6552078 K29.70 with wt loss - pt to see GI for endoscopy- pt to avoid nsaid Tachycardia 4624541 R00. 0 -check labs/ekg - pt is off of verapamil [id number] MD Hardy Streeter 14 OB [address] [facility] [address] [place] [address] 06/29/2022 13:31:40 07/01/2022 15:59:23 Irregular periods 49368509 N92.6 Gynecologi c examination 51115576 Z01.405 [id number] [facility] [address] [place] [address] 08/17/2022 10:45:59 08/21/2022 16:17:17 Essential hypertension 87704568 I10 improving- pt stopped taking verapamil- pt to continue valsartanh ct ( s/p LRT) Mixed anxi ety and depressive disorder 247650189 F41.8 (pt stopped lexapro due to dizziness )fair control- pt to continue venlafaxin e 150mg daily Headache 97804994 R51.9 lowered Topamax 50mg bid since pt is loosing wt and low appetite- pt to f/u with neuro Hyperlipidemia 35736787 E78.5 healthy diet and exercise discussed with pt Kidney stone 81293131 N2 0.0 with h/o intermitte nt back pain and lower abdominal pain-keep good hydration [id number] [facility] [address] [place] [address] 02/15/2023 08:30:56 02/18/2023 10:41:32 Mixed anxiety and depressive disorder 025505775 F41.8 (pt stopped lexapro due to dizziness )fair control- pt to continue venlafaxin e 150mg daily Essential hypertension 71613592 I10 stable-pt stopped taking verapamil- pt to continue valsartanh ct ( s/p LRT) Headache 94004835 R51.9 pt is off of Topamax - meds per neuro- pt to f/u with neuro Kidney stone 41528784 N2 0.0 with h/o intermitte nt back pain and lower abdominal pain-keep good hydrationp t did not do CT abdomen yet Low back pain 432443498 M54.50 -exercise /heat therapyadd cyclobenza ena with meloxicam [id number] [facility] [address] [place] [address] 04/18/2023 12:11:56 04/24/2023 11:05:48 Kidney stone 06544702 N20.0 with h/o intermitte nt upper abdominal pain-keep good hydrationp t to do CT abdomen- go to ER if pain gets worse-pt declined to take med for pain -taking otc analgesics Abdominal pain 67764728 R10.9 upper abdominal pain and hh/o kidney stone in the past-check labs and CT Hyperlipidemia 74554508 E78.5 healthy diet and exercise discussed with pt [id number] MD Jaclyn Nino (Adult Med) [address] [place] [address] 05/17/2023 14:23:35 05/21/2023 14:52:11 Essential hypertension 04680800 I10 stable-pt stopped taking verapamil- pt to continue valsartanh ct ( s/p LRT) Mixed anxi ety and depressive disorder 838233993 F41.8 (pt stopped lexapro due to dizziness )fair control- pt to continue venlafaxin e 150mg daily Headache 02506829 R51.9 pt is off of Topamax - meds per neuro- pt to f/u with neuro Influenza vaccination declined 405774498 Z28.21 Kidney stone 47370235 N2 0.0 with h/o intermitte nt upper abdominal pain-keep good hydrationp t to do CT abdomen- go to ER if pain gets worse-pt declined to take med for pain -taking otc analgesics Hyperlipidemia 90821160 E78.5 healthy diet and exercise discussed with pt Abdominal pain 77649358 R10.9 upper abdominal pain and h/o kidney stone in the past- CT showed sludged gallbladde r- pt is going for us for gallbladde r tomorrow [id number] Jacinta Wadsworth MD Tennga 14 OB [address] [facility] [address] [place] [address] 07/05/2023 13:46:45 07/10/2023 15:54:58 Irregular periods 93108869 N92.6 Positive s creening for depression on PHQ-9 (Patient Health Questionnaire 9) 4400527191 17606 Z13.31 Gynecologi c examination 80800264 Z01.892 [id number] MD Jaclyn Nino (Adult Med) [address] [place] [address] 08/30/2023 14:15:08 09/02/2023 14:14:07 Essential hypertension 81638009 I10 fairly stable-pt stopped taking verapamil- pt to continue valsartanh ct ( s/p LRT) Mixed anxi ety and depressive disorder 004423796 F41.8 (pt stopped lexapro due to dizziness )fair control- pt to continue venlafaxin e 150mg daily Hyperlipidemia 65495474 E78.5 healthy diet and exercise discussed with pt Headache 49706556 R51.9 pt is off of Topamax - meds per neuro- pt to f/u with neuro Kidney stone 18563541 N2 0.0 with r/mild hydronephr osis and h/o intermitte nt upper abdominal pain-keep good hydrationp t sees urologist Upper resp iratory infection 57023020 J06.9 keep good hydrations upportive care -antihista cadence/benzon ante tid prn [id number] MD Hardy Streeter 14 OB [address] [facility] [address] [place] [address] 11/08/2023 13:45:06 11/11/2023 10:36:31 Overweight 022202124 E66.3 Positive s creening for depression on PHQ-9 (Patient Health Questionnaire 9) 7602780174 52405 Z13.31 Low grade squamous intraepithelial lesion on cervical Papanicolaou smear 5037189004 9105 R87.811 [id number] MD Erica Ninohalto (Adult Med) [address] [place] [address] 11/21/2023 11:58:30 11/25/2023 17:51:10 Mixed anxiety and depressive disorder 212399115 F41.8 (pt stopped lexapro due to dizziness )fair control- pt to continue venlafaxin e 150mg daily-add wellbutrin Essential hypertension 22998771 I10 with h/o neurofibro matosis-fa irly stable-pt stopped taking verapamil- pt to continue valsartanh ct ( s/p LRT)check labs to r/o pheo since pt has hotflashes /sweating Headache 02979545 R51.9 pt is off of Topamax - meds per neuro- pt to f/u with neuro [id number] MD Erica Ninohalto (Adult Med) [address] [place] [address] [place] [address] 11/28/2023 09:16:29 11/30/2023 08:08:57 Mixed anxiety and depressive disorder 495754015 F41.8 (pt stopped lexapro due to dizziness )improving - pt to continue venlafaxin e 150mg daily-adde d wellbutrin recently Essential hypertension 30128008 I10 with h/o neurofibro matosis-fa irly stable-pt stopped taking verapamil- pt to continue valsartanh ct ( s/p LRT)check labs to r/o pheo since pt has hotflashes /sweating- pending labs Hyperlipidemia 50323825 E78.5 healthy diet and exercise discussed with pt [id number] [facility] [address] [place] [address] 12/31/2023 09:33:05 01/01/2024 21:27:02 Essential hypertension 18410573 I10 with h/o neurofibro matosis-fa irly stable-pt stopped taking verapamil- pt to continue valsartanh ct ( s/p LRT)check labs to r/o pheo since pt has hotflashes /sweating- pending labs Mixed anxi ety and depressive disorder 503823806 F41.8 (pt stopped lexapro due to dizziness )improving - pt to continue venlafaxin e 150mg daily-adde d wellbutrin recently Hyperlipidemia 51009559 E78.5 healthy diet and exercise discussed with pt Headache 59332798 R51.9 pt is off of Topamax - meds per neuro- pt to f/u with neuro Itching of skin 76994534 0 L29.9 -not sure of etiology-l ess likely scabies - 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 [id number] MD Jaclyn Nino (Adult Med) [address] [place] [address] 02/13/2024 12:01:19 02/14/2024 16:23:07 Dysuria 30174742 R30.0 -urine dipstick -laurenll rx for clinical UTI-keep good hydration [id number] MD Jaclyn [facility] (Adult Med) [address] [place] [address] 08/03/2024 09:15:15 08/04/2024 09:30:10 Mixed anxiety and depressive disorder 054609835 F41.8 (pt stopped lexapro due to dizziness )fairly stable /feeling bored and tired since she lost her job recently- pt to continue venlafaxin e 150mg daily-adde d wellbutrin -pt to see therapists leep hygiene discussed with ptpt to call crisis number if SI Daytime hypersomnia [phone] 3414 G47.19 with snoring- discussed about sleep hygiene [id number] MD Hardy Streeter 14 OB [address] [facility] [address] [place] [address] 08/06/2024 09:46:49 08/07/2024 08:08:27 Irregular periods 63165019 N92.6 Depression screening positive 8129953081 75729 Z13.31 Gynecologi c examination 85754261 Z01.419 Health Concerns Section Related Observation LastModified by Organization Detai ls LastModified Time None Recorded Concern Status LastModified by Organization Details LastModified Time None Recorded Advance Directives Directive N: Payers Insurance Date Sequence Insurance Name Policy Number Policy Vo Covered Member ID Vo Member ID Guarantor Name 12/31/2023 2 [employer] [facility] [id number] Safia Puente [id number] Safia Puente 08/27/2024 2 [facility] (O) ILONEX Safia Puente [id number] Safia Puente 12/31/2023 1 [employer] [facility] - HOME CARE & FOOD SPECIALIST FUND - OPEN ACCESS III (PPO) [id number] Safia Puente [id number] Safia Puente 08/27/2024 1 [employer] [facility] (PPO) [id number] Safia Puente [id number] Safia Puente 12/31/2023 1 [facility] (MEDICAID HMO) [id number] Safia Puente [id number] Safia Puente 12/31/2023 1 [place] [facility] [place] [facility] Safia Puente [id number] Safia Puente 03/12/2017 1 [facility] (PPO) [id number] Yohan Puente [id number] Safia Puente 08/27/2024 2 [place] Safia Puente [id number] Safia Puente 12/31/2023 2 [place] [facility] Safia Puente [id number] Safia Puente 03/02/2024 1 [place] [facility] Safia Puente [id number] Safia Puente 12/31/2023 1 [facility] (MEDICAID HMO) [id number] Safia Puente [id number] Safia Puente Notes Date Note Type Note [...] /hydronephrosis Paulie Macias MD Attn: Accounting,[address] [place], [address], [facility] 11/28/2023 13:37:03 4 text/html Anxiety/DepressionReport ed bypatient.Quality:meds [...] days Paulie Macias MD Attn: Accounting,[address] [place], [address], [facility] 12/31/2023 11:39:23 4 text/html DysuriaReported bypatient.Quality:burnin g Severity:moderate Duration:symptoms lasting over 2 weeks Context:no prior history of STDs; history of kidney stones Associated Symptoms:no fever; no blisters on genitals; no blood in the urine Paulie Macias MD Attn: Accounting,[address] [place], [address], [facility] 02/13/2024 15:37:08 5 text/html Anxiety/DepressionReport ed bypatient.Quality:meds [...] night Paulie Macias MD Attn: Accounting,[address] [place], [address], [facility] 08/03/2024 12:33:52 5 text/html Annual GYNReported bypatient.Menstrual [...] fun Jacinta Wadsworth MD Attn: Accounting,[address] [place], [address], [facility] 08/06/2024 10:56:43 OBGyn Episode Ob Episode Information Episode Created Date Number of Fetuses Patient Bloodtype Patient rh Status Prepregnancy Weight lbs Domestic Partner Domestic Partner Phone Father Name Risk Compliance Manager Status 03/09/20 15 1 CLOSED Fetus Data First Name Last Name Admitted to NICU Weight (g) Sex Living Outcome Pediatric Complications Fetus ID Race Codes Race Delivery Type 3628.73 6 F [id number] Jaylan Calculation Initial Jaylan Date Initial Exam [...] Sterilization Discharge Date Comments 9 Dr. Wadsworth; [facility] Discharge Information Feeding Method Contraceptive Method Maternal HG B and HCT Levels Ob Episode Information Episode Created Date Number of Fetuses Patient Bloodtype Patient rh Status Prepregnancy Weight lbs Domestic Partner Domestic Partner Phone Father Name Risk Compliance Manager Status 03/09/20 15 1 CLOSED Fetus Data First Name Last Name Admitted to NICU Weight (g) Sex Living Outcome Pediatric Complications Fetus ID Race Codes Race Delivery Type 3202.35 952 M [id number] Vaginal Jaylan Calculation Initial Jaylan Date Initial [...]
--- OUTSIDE RECORDS SUMMARY | 2025-01-27 12:50 | XMS_ITS | Encounter Summary ---
Author Organization [facility] Address [address] [place] [address] Phone Care Team Providers Care Manager Of Global Name Role Phone Paulie Hawkins MD Primary Care Provider [phone] Ramon Peacock CUSHION PADDER, HOT KETTLE TENDER Unavailable + [phone] Ely Haile CUSHION PADDER, GEAR GENERATOR SET UP OPERATOR Unavailable [phone] Reason for Visit * Reason Comments Medication Refill Encounter Details Date Type Department Care Team (Late st Contact Info) Description 08/06/2023 Refill [facility] [address] [place] [id number] Ely Haile, CUSHION PADDER, GEAR GENERATOR SET UP OPERATOR [address] [place] [address] Medication Refill Social History Tobacco Use Types [...] Dept 02/22/23 Office Visit Ely Haile APRN, [facility] [address] 09/14/22 Office Visit Ely Haile APRN, [facility] Showing recent visits within past 730 days and meeting all other requirements Future Appointments Date Type Provider Dept 08/23/23 Appointment Ely Haile APRN, [facility] [address] Showing future appointments within next 90 days and meeting all other requirements Passed - No documented Systolic BP > 200 within past 3 months Passed - Number of active Serotonergic medications less than 3 A R SPECIALIST documented in this encounter Plan of Treatment [...] 19 06/22/2024 06/22/2024 06/22/2024 12:1 7 PM A R SPECIALIST documented as of this encounter Care Teams Manager Of Global Relationship Specialty Start Date End Date Paulie Hawkins MD [address] [place] [address] PCP - General Internal Medicine 08/08/16 Ramon Peacock, CUSHION PADDER, HOT KETTLE TENDER [address] [place] [address] Nurse Practitioner Advanced Practice Nurse 07/26/23 Ely Haile APRN, GEAR GENERATOR SET UP OPERATOR [address] [place] [address] Nurse Practitioner Advanced Practice Nurse 09/14/22 documented as of this encounter
--- OUTSIDE RECORDS SUMMARY | 2025-01-27 12:50 | XMS_ITS | Clinical Summary ---
Author Organization [facility] Address [address] [place] [address] Phone Care Team Providers Care Fish Packer Name Role Phone Paulie Hawkins MD Primary Care Provider [phone] Ramon Peacock STONE POLISHER HAND, CREDIT ADMINISTRATION MANAGER Unavailable [phone] Ely Haile STONE POLISHER HAND, REPRODUCTIVE SURGEON Unavailable +- [phone] Allergies Active Allergy Reactions Criticality Noted Date Comments Duloxetine Hcl Other (see Comments) 08/22/2022 Abdominal pain Peanut-Containing Drug Products Hives 08/08/2016 Medications ibuprofen (MOTRIN) 600 MG Tablet Take 1 Tab by mouth every 8 hours as needed for Pain. 30 Tab 0 7 Active FLUoxetine (PROzac) 10 MG Capsule Take 10 mg by mouth daily. Active cyclobenzaprine (FLEXERIL) 10 MG Tablet Take 10 mg by mouth nightly. Active Norethin Edvin-Eth Estrad-FE () 1-20 MG-MCG(24) Tablet Take by mouth. Activ e omeprazole (PriLOSEC) 20 MG CAPSULE DELAYED RELEASE Take 20 mg by mouth daily. Active valsartan-hydroC HLOROthiazide (DIOVAN-HCT) 160-12.5 MG Tablet Take 1 Tablet by mouth daily. Active metoclopramide (REGLAN) 5 MG TabletIndication s:Chronic migraine w/o aura w/o status migrainosus, not intractable Take 1 Tablet by mouth 2 times daily as needed for Nausea - 1st line. 30 Tablet 3 3 Active Ubrogepant (Ubrelvy) 50 MG TabletIndication s:Chronic migraine w/o aura w/o status migrainosus, not intractable Take 1 Tablet by mouth once as needed for Other (headache/migr cecilio). 10 Tablet 2 4 Active prochlorperazine (COMPAZINE) 5 MG Tablet Take 1-2 Tablets by mouth every 6 hours as needed (headache). 10 Tablet 4 Active ondansetron (ZOFRAN) 4 MG TabletIndication s:Nausea and Vomiting Take 1 Tablet by mouth every 8 hours as needed for Nausea - 1st line. Indications: Nausea and Vomiting 10 Tablet 5 Active nitrofurantoin, monohydrate-macr ocrystal, (Macrobid) 100 MG CapsuleIndicatio ns:Urinary Tract Infection Take 1 Capsule by mouth 2 times daily for 7 days. Indications: Urinary Tract Infection 14 Capsule 5 01/04/20 25 Active Problems No known active problems Encounters Date Type Department Care Team Description 12/27/2024 3:45 PM CDT - 12/27/2024 6:05 PM CDT Emergency [facility] [address] [place] [address] Dutch Bueno, PAC Viral gastroenteritis Discharge Disposition: Discharged to home or Selfcare 12/27/2024 Travel from Last 3 Months Immunizations Immunization Administration Dates Next Due Hepatitis [...] Sign Reading Time Taken Comments Blood Pressure 146/87 12/27/2024 6:04 PM CDT Pulse 76 12/27/2024 6:04 PM CDT Temperature 36.6 C (97.9 F) 12/27/2024 3:48 PM CDT Respiratory Rate 17 12/27/2024 6:04 PM CDT Oxygen Saturation 99% 12/27/2024 6:04 PM CDT Inhaled Oxygen Concentration - - Weight 59 kg (130 lb) 12/27/2024 3:48 PM CDT Height 154.9 cm (5' 1) 12/27/2024 3:48 PM CDT Body Mass Index 24.56 12/27/2024 3:48 PM CDT Plan of Treatment Health Maintenance Due Date Last Done Comments Hepatitis C Virus (HCV) Screening 1987 Hepatitis B Immunization (1 of 3 - 19+ 3-dose series) 2006 Pap Smear 2008 Human Papillomavirus (HPV) Immunization (3 - 3-dose series) 05/26/2013 02/10/2013, 11/24/2012 Cervical Cancer Screening (CCS) 2017 HPV/Cotest 2017 SARS-COV-2 Immunization (3 - 2023- season) 2024 07/23/2021, 06/30/2021 Influenza Immunization (Seas on Ended) 2025 05/21/2016, 04/25/2015 Td Immunization Every 10 Yea rs (Adults With 1 Tdap) 10/19/2026 10/19/2016, 02/10/2013 [...] on patient's age to complete this topic Procedures Procedure Name Priority Date/Time Associated Diagnosis Comments POCT URINE HCG () STAT 12/27/2024 4:52 PM CDT URINALYSIS REFLEX IF INDICATED BY ABNORMAL RESULTS STAT 12/27/2024 4:51 PM CDT CULTURE, URINE STAT 12/27/2024 4:51 PM CDT CBC WITH AUTO DIFFERENTIAL STAT 12/27/2024 4:14 PM CDT LIPASE STAT 12/27/2024 4:14 PM CDT CMP (COMPREHENSIVE METABOLIC PANEL) STAT 12/27/2024 4:14 PM CDT COMPLETE BLOOD COUNT (CBC) WITH DIFF STAT 12/27/2024 4:14 PM CDT from Last 3 Months Results * POCT Urine HCG () (12/27/2024 4:52 PM CDT) Pathologist [facility] POC URINE Negative POC URINE CONTROL Surgical Asst Pass Urine 12/27/2024 4:52 PM CDT Dutch Bueno [facility] POINT OF CARE TESTIN G (MANUAL) Final Result * (ABNORMAL) Urinalysis w/ Reflex (12/27/2024 4:51 PM CDT) Pathologist [facility] SPECIFIC GRAVITY 1.025 1.003 - 1.030 12/27/2024 5:36 PM CDT [facility] URINE PH 6.0 5.0 - 9.0 12/27/2024 5:36 PM CDT [facility] WBC ESTERASE 25 /ul(A) Negative 12/27/2024 5:36 PM CDT [facility] NITRITE Negative Negative 12/27/2024 5:36 PM CDT [facility] PROTEIN, RANDOM URINE 100 mg/dL(A) Negative 12/27/2024 5:36 PM CDT [facility] URINE GLUCOSE, QUAL Negative Negative 12/27/2024 5:36 PM CDT [facility] URINE KETONES 150 mg/dL(A) Negative 5:36 PM CDT [facility] UROBILINOGEN Normal Normal mg/dL 12/27/2024 5:36 PM CDT [facility] URINE BLOOD 150 /uL(A) Negative jamarcus/ul 12/27/2024 5:36 PM CDT [facility] URINALYSIS COLOR Yellow 12/28/19 25 5:36 PM CDT [facility] URINALYSIS CLARITY Slightly Cloudy 12/27/2024 5:36 PM CDT [facility] WBC (Urine) 11-20(A) Negative, 0-5 /hpf 12/27/2024 5:36 PM CDT [facility] URINE RBC'S 6-10(A) Negative, 0-2 /hpf 12/27/2024 5:36 PM CDT [facility] EPITHELIAL CELLS Moderate amount /lpf 12/27/2024 5:36 PM CDT [facility] BACTERIA, URINE Few(A) Negative /hpf 12/27/2024 5:36 PM CDT [facility] URINE MUCOUS Many 12/27/2024 5:36 PM CDT [facility] Urine URINE SPECIMEN OBTAINED BY CLEAN CATCH PROCEDURE / Unknown Non-Phlebotomy Collection / Unknown 12/27/2024 4:51 PM CDT 12/27/2024 5:05 PM CDT us Dutch Bueno PAC URINE ORDERABLES Fin al Result [facility] [address] [place] [address] * Culture, Urine (12/27/2024 4:51 PM CDT) CULTURE RESULTS Mixed Growth or 3 or More Organisms, Probable Collection Contamination, Suggest Repeat 12/29/2024 9:17 AM CDT [facility] Urine URINE SPECIMEN OBTAINED BY CLEAN CATCH PROCEDURE / Unknown Non-Phlebotomy Collection / Unknown 12/27/2024 4:51 PM CDT 12/27/2024 5:05 PM CDT us Dutch Egan Ximena PAC MICROBIOLOGY - GENER AL ORDERABLES Final Result [facility] [address] [place] [address], * (ABNORMAL) CBC with Auto Differential (12/27/2024 4:14 PM CDT) WBC 12.98(H) 4.00 - 12.00 10(3)/mcL 12/27/2024 4:49 PM CDT [facility] RBC 5.02 3.80 - 5.30 10(6)/[facility] 12/27/2024 4:49 PM CDT [facility] HEMOGLOBIN (HGB) 15.3 12.0 - 15.8 g/dL 12/27/2024 4:49 PM CDT [facility] HEMATOCRIT (HCT) 45.1 36.0 - 47.0 % 12/27/2024 4:49 PM CDT [facility] MCV 89.8 82.0 - 96.0 fL 12/27/2024 4:49 PM CDT [facility] MCH 30.5 26.0 - 34.0 pg 12/27/2024 4:49 PM CDT [facility] MCHC 33.9 31.0 - 36.0 g/dL 12/27/2024 4:49 PM CDT [facility] PLATELET COUNT 483(H) 140 - 440 10(3)/mcL 12/27/2024 4:49 PM CDT [facility] RDW 12.6 11.8 - 15.5 % 12/27/2024 4:49 PM CDT [facility] MPV 10.0 9.7 - 12.4 fL 12/27/2024 4:49 PM CDT [facility] NEUTROPHILS 83.5(H) 47.0 - 73.0 % 12/27/2024 4:49 PM CDT [facility] LYMPHOCYTES 10.2(L) 18.0 - 42.0 % 12/27/2024 4:49 PM CDT [facility] MONOCYTES 6.1 4.0 - 12.0 % 12/27/2024 4:49 PM CDT [facility] EOSINOPHILS 0.0 0.0 - 5.0 % 12/27/2024 4:49 PM CDT [facility] BASOPHILS 0.2 0.0 - 1.0 % 12/27/2024 4:49 PM CDT [facility] ABSOLUTE NEUTROPHILS 10.84(H) 1.60 - 7.70 10(3)/[facility] 12/27/2024 4:49 PM CDT [facility] ABSOLUTE LYMPHOCYTES 1.32 1.30 - 3.20 10(3)/[facility] 12/27/2024 4:49 PM CDT [facility] ABSOLUTE MONOCYTES 0.79 0.20 - 1.00 10(3)/[facility] 12/27/2024 4:49 PM CDT [facility] ABSOLUTE EOSINOPHIL 0.00 0.00 - 0.40 10(3)/[facility] 12/27/2024 4:49 PM CDT [facility] ABSOLUTE BASOPHILS 0.03 0.00 - 0.10 10(3)/[facility] 12/27/2024 4:49 PM CDT [facility] NRBC PER 100 WBC 0 12/28/19 4:49 PM CDT [facility] Blood Venipuncture / Unknown 12/27/2024 4:14 PM CDT 12/27/2024 4:45 PM CDT us Dutch Bueno PAC HEMATOLOGY ORDERABLE S Final Result [facility] [address] [place] [address] * Lipase (12/27/2024 4:14 PM CDT) LIPASE 8 8 - 78 U/L 12/27/2024 5:13 PM CDT [facility] Blood Venipuncture / Unknown 12/27/2024 4:14 PM CDT 12/27/2024 4:45 PM CDT Dutch Bueno PAC CHEMISTRY ORDERABLES Final Result [facility] [address] [place] [address] * (ABNORMAL) CMP (12/27/2024 4:14 PM CDT) SODIUM 141 136 - 145 mmol/L 12/27/2024 5:13 PM CDT [facility] POTASSIUM 3.7 3.5 - 5.1 mmol/L 12/27/2024 5:13 PM CDT [facility] CHLORIDE 104 98 - 107 mmol/L 12/27/2024 5:13 PM CDT [facility] CO2, VENOUS 22 22 - 30 mmol/L 12/27/2024 5:13 PM CDT [facility] ANION GAP 18.7(H) <18.0 mmol/L 12/27/2024 5:13 PM CDT [facility] GLUCOSE 94 70 - 99 mg/dL 12/27/2024 5:13 PM CDT [facility] BUN 14 5 - 18 mg/dL 12/27/2024 5:13 PM CDT [facility] CREATININE, BLOOD 0.70 0.60 - 1.00 mg/dL 12/27/2024 5:13 PM CDT [facility] BUN/CREATININE RATIO 20 12 - 20 ratio 12/27/2024 5:13 PM CDT [facility] TOTAL PROTEIN 8.2(H) 6.0 - 8.0 g/dL 12/27/2024 5:13 PM CDT [facility] ALBUMIN 4.6 3.5 - 5.0 g/dL 12/27/2024 5:13 PM CDT [facility] A/G RATIO 1.3 1.0 - 2.2 12/27/2024 5:13 PM CDT [facility] CALCIUM 9.5 8.7 - 10.5 mg/dL 12/27/2024 5:13 PM CDT [facility] T BILI 0.4 0.2 - 1.2 mg/dL 12/27/2024 5:13 PM CDT [facility] SGOT (AST) 23 <43 U/L 12/27/2024 5:13 PM CDT [facility] SGPT (ALT) 18 <56 U/L 12/27/2024 5:13 PM CDT [facility] ALKALINE PHOSPHATASE 69 40 - 150 U/L 12/27/2024 5:13 PM CDT [facility] GFR, ESTIMATED >60 >=60 12/27/2024 5:13 PM CDT [facility] Comment: Creatinine Clearance is the preferred criteria for selecting drug dose adjustments in renally impaired patients. The GFR is provided as additional pertinent clinical information. GFR is reported in mL/min/1.73 sq m. Calculation based on the Chronic Kidney Disease Epidemiology Collaboration (CKD- EPI) equation refit without adjustment for race. GFR, EST. >60 >=60 025 5:13 PM CDT [facility] GFR, EST. NONAFRICAN >60 >=60 12/27/2024 5:13 PM CDT [facility] Blood Venipuncture / Unknown 12/27/2024 4:14 PM CDT 12/27/2024 4:45 PM CDT us Dutch Bueno PAC CHEMISTRY ORDERABLES Final Result [facility] [address] [place] [address] from Last 3 Months Insurance [facility] Care Teams Fish Packer Relationship Specialty Start Date End Date Paulie Hawkins MD [address] [address] PCP - General Internal Medicine 08/08/16 Ramon Peacock APRN, CREDIT ADMINISTRATION MANAGER [address] [place] [address] Nurse Practitioner Advanced Practice Nurse 07/26/23 Ely Haile APRN, REPRODUCTIVE SURGEON [address] [place] [address] Nurse Practitioner Advanced Practice Nurse 09/14/22
--- OUTSIDE RECORDS SUMMARY | 2025-01-27 12:50 | XMS_ITS | Encounter Summary ---
Author Organization [facility] Address [address] [place] [address] Phone Care Team Providers Care Mass Communications Professor Name Role Phone Paulie Hawkins MD Primary Care Provider [phone] Ramon Peacock AIRCRAFT STRUCTURE MECHANIC, STITCH WELDER Unavailable + [phone] Ely Haile AIRCRAFT STRUCTURE MECHANIC, FAMILY SERVICES MANAGER Unavailable [phone]- [phone] Reason for Visit * Reason Comments Medication Refill Encounter Details Date Type Department Care Team (Late st Contact Info) Description 11/25/[address] [facility] [address] [place] [address] Ely Haile, AIRCRAFT STRUCTURE MECHANIC, FAMILY SERVICES MANAGER [address] [place] [address] Medication Refill Social History Tobacco Use Types [...] 19 06/22/2024 06/22/2024 06/22/2024 12:1 7 PM [employer]ATH[employer] SORTER documented as of this encounter Care Teams Mass Communications Professor Relationship Specialty Start Date End Date Paulie Hawkins MD [address] [place] [address] PCP - General Internal Medicine 08/08/16 Ramon Peacock APRN, STITCH WELDER [address] [place] [address] Nurse Practitioner Advanced Practice Nurse 07/26/23 Ely Haile APRN, FAMILY SERVICES MANAGER [address] [place] [address] Nurse Practitioner Advanced Practice Nurse 09/14/22 documented as of this encounter
--- NOTE | 2025-01-27 12:58 | ED_ITS ---
HPI - Syncope General Chief Complaint: Syncope Stated Complaint: syncope and fall x 2 Time Seen by Provider: 01/27/25 12:52 Source: patient and family Mode of arrival: ambulatory History of Present Illness HPI narrative: 39-year-old female with a history of anxiety/ depression, migraine, trauma, memory problems, hypertension, neurofibromatosis - was out does picking up please for 3 hours. She -- passed out and fell down. She had a 2nd episode of syncope when she fell backwards and hit her occiput and her buttocks. The patient did not have any wanting. No chest pain or shortness of breath prior to passing out. After falling on the ground the patient woke up in 20 seconds. No urinary incontinence. No focal neuro deficit noted. -- After falling to the floor the patient had some clonic activity. Patient complains of headache, neck pain and buttock pain. MD complaint: loss of consciousness and felt faint Onset (ago): hour(s) ( 1 hour ago) Duration of episode: 20 -: second(s) Description of event: tonic-clonic movements Prodromal symptoms: none Witnessed: Yes - by Bystander Context: at rest Injuries sustained associated with event: neck, head and other ( coccyx) Current symptoms: headache and other ( headache and neck pain) History: other ( no prior episodes) Treatments prior to arrival: none Related Data Home Medications ?Medication ?Instructions ?Recorded ?Confirmed ?Last Taken ?Type norethindrone 1 mg-ethinyl tablet 07/30/22 12/29/24 Unknown History estradiol 20 mcg (24)-iron 75 mg (4) tablet (Gui 24 Fe) rimegepant 75 mg disintegrating 75 mg PO .q48 PRN migraine headache 01/25/25 Unknown History tablet (Nurtec ODT) Allergies Allergy/AdvReac Type Severity Reaction Status Date / Time citric acid Allergy Rash Verified 01/27/25 12:54 peanut Allergy Rash Verified 01/27/25 12:54 Review of Systems 2 Review of Systems: All systems reviewed & are unremarkable except as noted in HPI and below Constitutional: Constitutional: Reports as per HPI, Reports no additional constitutional complaints and Reports weakness Eyes: Eyes: Reports as per HPI and Reports no additional eye complaints ENT: Reports system reviewed and no additional complaints, except as documented and Reports as per HPI Cardiovascular: Cardiovascular: Reports as per HPI and Reports no additional cardiovascular complaints Respiratory: Respiratory: Reports as per HPI and Reports no additional respiratory complaints Gastrointestinal: Gastrointestinal: Reports as per HPI and Reports no additional gastrointestinal complaints Genitourinary: Genitourinary: Reports no additional female genitourinary complaints and Reports as per HPI Musculoskeletal: Musculoskeletal: Reports no additional musculoskeletal complaints, Reports as per HPI and Reports back pain Comments: neck pain, back pain Integumentary/Breasts: Skin/Breast: Reports system reviewed and no additional complaints, except as docu and Reports as per HPI Neurologic: Reports system reviewed and no additional complaints, except as documented and Reports as per HPI Psychiatric: Psychiatric: Reports no additional psychiatric complaints and Reports as per HPI Endocrine: Endocrine: Reports no additional endocrine complaints and Reports as per HPI Hematologic/Lymphatic: Hematologic/Lymphatic: Reports no additional hematologic/lymphatic complaints and Reports as per HPI Allergic/Immunologic: Allergic/Immunologic: Reports no additional allergic/immunologic complaints and Reports as per HPI PMFSH Past Medical History Medical History Hypertension Surgical History Surgical History History of tubal ligation Family History Family History Mother Family history non-contributory Social History Social History Smoking status: Never smoker Substance use: never Living arrangements: with family Gender identity (if verbalized by the patient): Female Sexual Orientation (if Verbalized by the Patient): Straight or Heterosexual Spiritual care concerns: No Exam 2 Narrative: not orthostatic Const: General: no acute distress Orientation/consciousness: patient oriented x3 Limitations: no limitations HENMT: Head: normal to inspection Ears: external ears normal F avtar/Nose/Sinus: Normal external nose present Face and sinus: normal facial exam Mouth: Yes Normal oral and palatal mucosa present Throat: posterior oropharynx normal Eyes: Conjunctivae: conjunctivae normal Pupils: Equal, round and reactive pupils present EOM: EOMs intact bilaterally Direct Ophthalmoscopy: no photophobia Neck: Neck: normal visual inspection, no lymphadenopathy and no meningeal signs Chest: Chest palpation & inspection: normal inspection of the chest Resp: Effort & Inspection: normal respiratory effort Auscultation: clear to auscultation bilaterally Cardio: Rate: regular rate Rhythm: regular rhythm GI: Auscultation: normal bowel sounds Other: no tenderness/ rigidity / rebound : General: Yes no CVA tenderness Back/Spine/Pelvis: Back: no CVA tenderness Skin: General skin exam: normal color Rashes: no rashes Wounds: no wounds Neuro: General: patient oriented x3, moves all extremities, no meningeal signs, no focal motor deficits and CN's II-XI intact bilaterally Cranial nerves: Yes Nystagmus not present Speech: normal speech Gait exam (Neuro): Normal gait present Extrem: General: normal to inspection and no clubbing, cyanosis or edema Psych: Mental Status: mental status grossly normal Affect: normal affect Attitude: cooperative Course Course Emergency Course: syncopal spells questionable seizure activity heat exertion coccyx fracture head injury-- CT of the head did not show any acute findings. Vital Signs Vital signs: Vital Signs Temperature 36.6 C 01/27/25 12:46 Pulse Rate 72 01/27/25 12:46 Respiratory Rate 14 01/27/25 12:46 Blood Pressure 120/77 01/27/25 12:46 Pulse Oximetry 100 01/27/25 12:46 Oxygen Delivery Room Air 01/27/25 12:46 Temperature 36.8 C 01/27/25 13:50 Pulse Rate 85 01/27/25 13:50 Respiratory Rate 16 01/27/25 13:50 Blood Pressure 132/67 01/27/25 13:50 Pulse Oximetry 97 01/27/25 13:50 Oxygen Delivery Room Air 01/27/25 13:50 MDM - Syncope MDM Narrative Medical decision making narrative: Syncopal spells heat exertion coccyx fracture Differential Diagnosis Differential diagnosis: Likely dehydration Lab Data Attestation: I reviewed the patient's lab results. 01/27/25 13:52 01/27/25 13:52 Labs: Lab Results 01/27/25 01/27/25 01/27/25 Range/Units 12:56 13:19 13:52 WBC 12.9 H (4.8-10.8) K/mm3 RBC 4.83 (4.20-5.40) M/mm3 Hgb 14.5 (12.0-15.0) g/dL Hct 44.3 (35.0-49.0) % MCV 91.7 (78.0-102.0) fL MCH 30.0 (27.0-31.0) pg MCHC 32.7 (32-36) g/dL RDW 12.9 (11.6-14.4) % Plt Count 352 (150-420) K/mm3 MPV 9.7 (9.2-11.8) fl Immature Gran % (Auto) 0.5 H (0.0-0.0) % Neut % (Auto) 82.3 H (50.0-70.0) % Lymph % (Auto) 10.3 L (18.0-42.0) % Lee % (Auto) 6.5 (2.0-11.0) % Eos % (Auto) 0.2 L (1.0-6.0) % Baso % (Auto) 0.2 (0.0-1.0) % Lymph # (Auto) 1.33 (1.10-4.50) K/mm3 Lee # (Auto) 0.83 (0.10-0.90) K/mm3 Eos # (Auto) 0.03 (0.02-0.50) K/mm3 Baso # (Auto) 0.03 (0.00-0.10) K/mm3 Abs Immat Gran (auto) 0.07 H (0.00-0.00) K/mm3 Absolute Neuts (auto) 10.57 H (1.70-7.20) K/mm3 Absolute Nucleated RBC 0.00 (0.00-0.00) K/mm3 Nucleated RBC % 0.0 (0-0.0) % Sodium 136 L (137-145) mmol/L Potassium 4.0 (3.4-5.0) mmol/L Chloride 99 (98-107) mmol/L Carbon Dioxide 31 H (22-30) mmol/L Anion Gap 6 (4-12) mmol/L BUN 18 H (7-17) mg/dL Creatinine 0.95 (0.7-1.0) mg/dL Estim Creat Clear Calc 54 ml/min Estimated GFR > 60 (59 - ) Glucose 88 (65-110) mg/dL POC Capillary Glucose 93 (65-105) mg/dl Calculated Osmolality 282 L (285-295) mOsm/kg Lactic Acid 0.9 (0.4-2.0) mmol/L Uric Acid 3.4 (2.5-7.5) mg/dL Calcium 9.2 (8.4-10.2) mg/dL Total Bilirubin 0.9 (0.2-1.3) mg/dL AST 29 (14-36) U/L ALT 16 (6-35) U/L Alkaline Phosphatase 67 (38-126) U/L Troponin I < 0.012 (0.000-0.034) ng/mL Total Protein 7.6 (6.3-8.2) g/dL Albumin 4.4 (3.5-5.1) g/dL Lipase 43 (23-300) U/L TSH 1.600 (0.465-4.680) uIU/mL Urine Color Yellow (Yellow) Urine Appearance Clear (Clear) Urine pH 6.5 (5.0-8.0) Ur Specific [place] 1.015 (1.010-1.020) Urine Protein Negative (Negative) Urine Glucose (UA) Negative (Negative) Urine Ketones Negative (Negative) Ur Blood (Man) 1+ H (Negative) Urine Nitrate Negative (Negative) Urine Bilirubin Negative (Negative) Urine Urobilinogen 4.0 H (0.2-1.0) mg/dL Leukocyte Esterase Rfl Trace H (Negative) FREEDOM/UL Urine RBC None seen (0-2) /hpf Urine WBC 0-5 (0-3) /hpf Ur Squamous Epith Cells Moderate (Few) /hpf Urine Bacteria 1+ H (None) /hpf Hyaline Casts Present (None) /lpf Urine Mucus Few H /lpf Imaging Data Attestation: I personally reviewed and interpreted this imaging study as follows: ( Chest x-ray did not show any infiltrates or evidence of CHF.) ECG Data EKG #1: ECG completion date: 01/27/25 ECG completion time: 13:53 Interpretation: normal sinus rhythm. Normal axis. No ST elevation. Discharge Plan Discharge Clinical Impression: Syncope Qualifiers: Syncope type: unspecified Qualified Code(s): R55 - Syncope and collapse Heat causing collapse Qualifiers: Encounter type: initial encounter Qualified Code(s): T67.1XXA - Heat syncope, initial encounter Closed fracture of coccyx Qualifiers: Encounter type: initial encounter Qualified Code(s): S32.2XXA - Fracture of coccyx, initial encounter for closed fracture Patient Disposition: Home Condition: Stable Instructions: Antibiotic Form, Coccyx Injury (ED), Heat Exhaustion (ED), Syncope (ED) Additional Instructions: follow-up with care physician Patient Language: Irish Prescriptions: No Action Gui 24 Fe 1 mg-20 mcg (24)/75 mg (4) tablet pantoprazole 40 mg tablet,delayed release (DR/EC) 40 mg PO BID 210 Days Qty: 60 3RF dicyclomine 10 mg capsule 10 mg PO TID Qty: 90 1RF Nurtec ODT 75 mg tablet,disintegrating 75 mg PO .q48 PRN (Reason: migraine headache) Rx Instructions: as a single dose Pt given samples on 01/25/25 Lot- [id number] Exp- 04/28/2027 [facility] [place] [address]-4 #3 sertraline 50 mg tablet See Rx Instructions .ROUTE .COMPLEX Qty: 90 0RF Dose Instruction: Take 1 tablet by mouth once daily Rx Instructions: Take 1 tablet by mouth once daily propranolol 60 mg tablet See Rx Instructions .ROUTE .COMPLEX Qty: 60 0RF Dose Instruction: TAKE 1 TABLET BY MOUTH EVERY 12 HOURS Rx Instructions: TAKE 1 TABLET BY MOUTH EVERY 12 HOURS valsartan-hydrochlorothiazide 160-12.5 mg tablet See Rx Instructions .ROUTE .COMPLEX Qty: 30 0RF Dose Instruction: Take 1 tablet by mouth once daily Rx Instructions: Take 1 tablet by mouth once daily Follow-up/Referrals: Kali Knapp DO [Primary Care Provider] - Time of Disposition: 15:08
--- NOTE | 2025-01-27 13:18 | ECG_ITS ---
Test Date: 2025-01-27 13:53:02 Measurements Intervals Cobb Rate: 66 P: 6 WY: 189 QRS: 43 QRSD: 92 T: 22 QT: 405 QTc: 425 Interpretive Statements SINUS RHYTHM No previous ECG available for comparison Electronically Signed On 02-01-2025 22:37:10 CDT by Homer Smith M.D.
--- OUTSIDE RECORDS SUMMARY | 2025-01-27 13:18 | XMS_ITS | Encounter Summary ---
Author Organization [facility] Address [address] [place] [address] Phone Care Team Providers Care Warehouse Order Filler Name Role Phone Paulie Hawkins MD Primary Care Provider [phone] Ramon Peacock LAST CHALKER, INJECTION MOLD TECHNICIAN Unavailable + [phone] Ely Haile LAST CHALKER, PRODUCT DISTRIBUTION SPECIALIST Unavailable +- [phone] Reason for Visit * Reason Comments Medication Refill Encounter Details Date Type Department Care Team (Late st Contact Info) Description 11/25/2022 Refill [facility] Emergency Department [address] [place] [address] Ely Haile, LAST CHALKER, PRODUCT DISTRIBUTION SPECIALIST [address] [place] [address] Medication Refill Social History Tobacco Use Types [...] 19 06/22/2024 06/22/2024 06/22/2024 12:1 7 PM MACHINE LOADER documented as of this encounter Care Teams Warehouse Order Filler Relationship Specialty Start Date End Date Paulie Hawkins MD [address] [place] [address] PCP - General Internal Medicine 08/08/16 Ramon Peacock APRN, INJECTION MOLD TECHNICIAN [address] [place] [address] Nurse Practitioner Advanced Practice Nurse 07/26/23 Ely Haile APRN, PRODUCT DISTRIBUTION SPECIALIST [address] [place] [address] Nurse Practitioner Advanced Practice Nurse 09/14/22 documented as of this encounter
--- OUTSIDE RECORDS SUMMARY | 2025-01-27 13:18 | XMS_ITS | Clinical Summary ---
Author Organization [facility] Address [address] [place] [address] Phone Care Team Providers Care Ham Curer Name Role Phone Paulie Hawkins MD Primary Care Provider [phone] Ramon Peacock IMPORT COORDINATION AND PRODUCTION HEAD, OPERATOR COATING FURNACE Unavailable + [phone] Ely Haile IMPORT COORDINATION AND PRODUCTION HEAD, IT ADMINISTRATOR Unavailable +- [phone] Allergies Active Allergy Reactions Criticality Noted Date [...] 12/27/2024 6:05 PM CDT Emergency [facility] Emergency [address] [place] [address] Dutch Bueno, PAC Viral gastroenteritis Discharge Disposition: [...] HCG () (12/27/2024 4:52 PM CDT) Pathologist [facility] POC URINE Negative POC URINE CONTROL Tire Setter Pass Urine 12/27/2024 4:52 PM CDT Dutch Bueno [facility] POINT OF CARE TESTIN G (MANUAL) Final Result * (ABNORMAL) Urinalysis w/ Reflex (12/27/2024 4:51 PM CDT) Pathologist [facility] SPECIFIC GRAVITY 1.025 1.003 - 1.030 12/27/2024 5:36 PM CDT [facility] URINE PH 6.0 5.0 - 9.0 12/27/2024 5:36 PM CDT [facility] WBC ESTERASE 25 /ul(A) Negative 12/27/2024 5:36 PM CDT [facility] NITRITE Negative Negative 12/27/2024 5:36 PM CDT [facility] PROTEIN, RANDOM URINE 100 mg/dL(A) Negative 12/27/2024 5:36 PM CDT [facility] URINE GLUCOSE, QUAL Negative Negative 12/27/2024 5:36 PM CDT [facility] URINE KETONES 150 mg/dL(A) Negative 5:36 PM CDT [facility] UROBILINOGEN Normal Normal mg/dL 12/27/2024 5:36 PM CDT [facility] URINE BLOOD 150 /uL(A) Negative jamarcus/ul 12/27/2024 5:36 PM CDT [facility] URINALYSIS COLOR Yellow 12/28/19 25 5:36 PM CDT [facility] URINALYSIS CLARITY Slightly Cloudy 12/27/2024 5:36 PM CDT [facility] WBC (Urine) 11-20(A) Negative, 0-5 /hpf 12/27/2024 5:36 PM CDT [facility] URINE RBC'S 6-10(A) Negative, 0-2 /hpf 12/27/2024 5:36 PM CDT [facility] EPITHELIAL CELLS Moderate amount /lpf 12/27/2024 5:36 PM CDT [facility] BACTERIA, URINE Few(A) Negative /hpf 12/27/2024 5:36 PM CDT [facility] URINE MUCOUS Many 12/27/2024 5:36 PM CDT [facility] Urine URINE SPECIMEN OBTAINED BY CLEAN CATCH PROCEDURE / Unknown Non-Phlebotomy Collection / Unknown 12/27/2024 4:51 PM CDT 12/27/2024 5:05 PM CDT us Dutch Bueno PAC URINE ORDERABLES Fin al Result [facility] [address] [place] [address] * Culture, Urine (12/27/2024 4:51 PM CDT) CULTURE RESULTS Mixed Growth or 3 or More Organisms, Probable Collection Contamination, Suggest Repeat 12/29/2024 9:17 AM CDT [facility] Urine URINE SPECIMEN OBTAINED BY CLEAN CATCH PROCEDURE / Unknown Non-Phlebotomy Collection / Unknown 12/27/2024 4:51 PM CDT 12/27/2024 5:05 PM CDT us Dutch Egan Ximena PAC MICROBIOLOGY - GENER AL ORDERABLES Final Result [facility] [address] [place] [address], * (ABNORMAL) CBC with Auto Differential (12/27/2024 4:14 PM CDT) WBC 12.98(H) 4.00 - 12.00 10(3)/mcL 12/27/2024 4:49 PM CDT [facility] RBC 5.02 3.80 - 5.30 10(6)/[facility] 12/27/2024 4:49 PM CDT [facility] HEMOGLOBIN (HGB) 15.3 12.0 - 15.8 g/dL 12/27/2024 4:49 PM CDT [facility] HEMATOCRIT (HCT) 45.1 36.0 - 47.0 % 12/27/2024 4:49 PM CDT [facility] MCV 89.8 82.0 - 96.0 fL 12/27/2024 4:49 PM CDT [facility] MCH 30.5 26.0 - 34.0 pg 12/27/2024 4:49 PM CDT [facility] MCHC 33.9 31.0 - 36.0 g/dL 12/27/2024 4:49 PM CDT [facility] PLATELET COUNT 483(H) 140 - 440 10(3)/mcL 12/27/2024 4:49 PM CDT [facility] RDW 12.6 11.8 - 15.5 % 12/27/2024 4:49 PM CDT [facility] MPV 10.0 9.7 - 12.4 fL 12/27/2024 4:49 PM CDT [facility] NEUTROPHILS 83.5(H) 47.0 - 73.0 % 12/27/2024 4:49 PM CDT [facility] LYMPHOCYTES 10.2(L) 18.0 - 42.0 % 12/27/2024 4:49 PM CDT [facility] MONOCYTES 6.1 4.0 - 12.0 % 12/27/2024 4:49 PM CDT [facility] EOSINOPHILS 0.0 0.0 - 5.0 % 12/27/2024 4:49 PM CDT [facility] BASOPHILS 0.2 0.0 - 1.0 % 12/27/2024 4:49 PM CDT [facility] ABSOLUTE NEUTROPHILS 10.84(H) 1.60 - 7.70 10(3)/[facility] 12/27/2024 4:49 PM CDT [facility] ABSOLUTE LYMPHOCYTES 1.32 1.30 - 3.20 10(3)/[facility] 12/27/2024 4:49 PM CDT [facility] ABSOLUTE MONOCYTES 0.79 0.20 - 1.00 10(3)/[facility] 12/27/2024 4:49 PM CDT [facility] ABSOLUTE EOSINOPHIL 0.00 0.00 - 0.40 10(3)/[facility] 12/27/2024 4:49 PM CDT [facility] ABSOLUTE BASOPHILS 0.03 0.00 - 0.10 10(3)/[facility] 12/27/2024 4:49 PM CDT [facility] NRBC PER 100 WBC 0 12/28/19 4:49 PM CDT [facility] Blood Venipuncture / Unknown 12/27/2024 4:14 PM CDT 12/27/2024 4:45 PM CDT us Dutch Bueno PAC HEMATOLOGY ORDERABLE S Final Result [facility] [address] [place] [address] * Lipase (12/27/2024 4:14 PM CDT) LIPASE 8 8 - 78 U/L 12/27/2024 5:13 PM CDT [facility] Blood Venipuncture / Unknown 12/27/2024 4:14 PM CDT 12/27/2024 4:45 PM CDT Dutch Bueno PAC CHEMISTRY ORDERABLES Final Result [facility] [address] [place] [address] * (ABNORMAL) CMP (12/27/2024 4:14 PM CDT) SODIUM 141 136 - 145 mmol/L 12/27/2024 5:13 PM CDT [facility] POTASSIUM 3.7 3.5 - 5.1 mmol/L 12/27/2024 5:13 PM CDT [facility] CHLORIDE 104 98 - 107 mmol/L 12/27/2024 5:13 PM CDT [facility] CO2, VENOUS 22 22 - 30 mmol/L 12/27/2024 5:13 PM CDT [facility] ANION GAP 18.7(H) <18.0 mmol/L 12/27/2024 5:13 PM CDT [facility] GLUCOSE 94 70 - 99 mg/dL 12/27/2024 5:13 PM CDT [facility] BUN 14 5 - 18 mg/dL 12/27/2024 5:13 PM CDT [facility] CREATININE, BLOOD 0.70 0.60 - 1.00 mg/dL 12/27/2024 5:13 PM CDT [facility] BUN/CREATININE RATIO 20 12 - 20 ratio 12/27/2024 5:13 PM CDT [facility] TOTAL PROTEIN 8.2(H) 6.0 - 8.0 g/dL 12/27/2024 5:13 PM CDT [facility] ALBUMIN 4.6 3.5 - 5.0 g/dL 12/27/2024 5:13 PM CDT [facility] A/G RATIO 1.3 1.0 - 2.2 12/27/2024 5:13 PM CDT [facility] CALCIUM 9.5 8.7 - 10.5 mg/dL 12/27/2024 5:13 PM CDT [facility] T BILI 0.4 0.2 - 1.2 mg/dL 12/27/2024 5:13 PM CDT [facility] SGOT (AST) 23 <43 U/L 12/27/2024 5:13 PM CDT [facility] SGPT (ALT) 18 <56 U/L 12/27/2024 5:13 PM CDT [facility] ALKALINE PHOSPHATASE 69 40 - 150 U/L 12/27/2024 5:13 PM CDT [facility] GFR, ESTIMATED >60 >=60 12/27/2024 5:13 PM CDT [facility] Comment: Creatinine Clearance is the preferred criteria for selecting drug dose adjustments in renally impaired patients. The GFR is provided as additional pertinent clinical information. GFR is reported in mL/min/1.73 sq m. Calculation based on the Chronic Kidney Disease Epidemiology Collaboration (CKD- EPI) equation refit without adjustment for race. GFR, EST. >60 >=60 025 5:13 PM CDT [facility] GFR, EST. NONAFRICAN >60 >=60 12/27/2024 5:13 PM CDT [facility] Blood Venipuncture / Unknown 12/27/2024 4:14 PM CDT 12/27/2024 4:45 PM CDT us Dutch Bueno PAC CHEMISTRY ORDERABLES Final Result [facility] [address] [place] [address] from Last 3 Months Insurance [facility] Care Teams Ham Curer Relationship Specialty Start Date End Date Paulie Hawkins MD [address] [address] PCP - General Internal Medicine 08/08/16 Ramon Peacock APRN, OPERATOR COATING FURNACE [address] [place] [address] Nurse Practitioner Advanced Practice Nurse 07/26/23 Ely Haile APRN, IT ADMINISTRATOR [address] [place] [address] Nurse Practitioner Advanced Practice Nurse 09/14/22
--- OUTSIDE RECORDS SUMMARY | 2025-01-27 13:18 | XMS_ITS | Encounter Summary ---
Author Organization [facility] Address [address] [place] [address] Phone Care Team Providers Care Screen Room Operator Name Role Phone Paulie Hawkins MD Primary Care Provider [phone] Ramon Peaocck FORMULATOR, LABORER SYRUP MACHINE Unavailable + [phone] Ely Haile FORMULATOR, CAN FILLING AND CLOSING MACHINE TENDER Unavailable [phone]- [phone] Reason for Visit * Reason Comments Medication Refill Encounter Details Date Type Department Care Team (Late st Contact Info) Description 08/06/2023 Refill [facility] #2 [place] [id number] Ely Haile, FORMULATOR, CAN FILLING AND CLOSING MACHINE TENDER [address] [place] [address] Medication Refill Social History Tobacco Use Types [...] Dept 02/22/23 Office Visit Ely Haile APRN, [facility] [address] 09/14/22 Office Visit Ely Haile APRN, [facility] Showing recent visits within past 730 days and meeting all other requirements Future Appointments Date Type Provider Dept 08/23/23 Appointment Ely Haile APRN, [facility] [address] Showing future appointments within next 90 days and meeting all other requirements Passed - No documented Systolic BP > 200 within past 3 months Passed - Number of active Serotonergic medications less than 3 WAREHOUSE WORKER documented in this encounter Plan of Treatment [...] 19 06/22/2024 06/22/2024 06/22/2024 12:1 7 PM YARD WAREHOUSE WORKER documented as of this encounter Care Teams Screen Room Operator Relationship Specialty Start Date End Date Paulie Hawkins MD [address] [place] [address] PCP - General Internal Medicine 08/08/16 Ramon Peacock, FORMULATOR, LABORER SYRUP MACHINE [address] [place] [address] Nurse Practitioner Advanced Practice Nurse 07/26/23 Ely Haile APRN, CAN FILLING AND CLOSING MACHINE TENDER [address] [place] [address] Nurse Practitioner Advanced Practice Nurse 09/14/22 documented as of this encounter
[2025-01-27 13:50] VITALS: BP 132/67; PULSE 85; RESP 16; TEMP 36.8; O2SAT 97
[2025-01-27] MEDS: LACTATED RINGERS 1,000 ML 999 ML IV CONT (13:55)
[2025-01-27 13:56] LABS: Hematocrit 44.3 % (35.0-49.0); Hemoglobin 14.5 g/dL (12.0-15.0); Immature Granulocyte Percent A 0.5 % (0.0-0.0); Lymphocytes Absolute Auto 1.33 K/mm3 (1.10-4.50); Mean Corpuscular HGB Conc 32.7 g/dL (32-36); Mean Corpuscular Hemoglobin 30.0 pg (27.0-31.0); Mean Corpuscular Volume 91.7 fL (78.0-102.0); Nucleated Red Blood Cells Absolute Auto 0.00 K/mm3 (0.00-0.00); Nucleated Red Blood Cells Perc 0.0 % (0-0.0); Platelet Count Result 352 K/mm3 (150-420); Red Blood Count 4.83 M/mm3 (4.20-5.40); White Blood Count 12.9 K/mm3 (4.8-10.8)
[2025-01-27 14:08] LABS: Alanine Aminotransferase 16 U/L (6-35); Albumin Level 4.4 g/dL (3.5-5.1); Alkaline Phosphatase 67 U/L (38-126); Anion Gap 6 mmol/L (4-12); Aspartate Amino Transferase 29 U/L (14-36); Bilirubin,Total 0.9 mg/dL (0.2-1.3); Blood Urea Nitrogen 18 mg/dL (7-17); Calcium 9.2 mg/dL (8.4-10.2); Carbon Dioxide 31 mmol/L (22-30); Chloride 99 mmol/L (98-107); Estimated CRCL calculation 54 ml/min; Estimated Glomerular Filt Rate > 60; Glucose 88 mg/dL (65-110); Lipase 43 U/L (23-300); Osmolality Calculated 282 mOsm/kg (285-295); Potassium 4.0 mmol/L (3.4-5.0); Sodium 136 mmol/L (137-145); Total Protein 7.6 g/dL (6.3-8.2); Uric Acid 3.4 mg/dL (2.5-7.5)
[2025-01-27 14:20] LABS: Troponin I < 0.012 ng/mL (0.000-0.034)
[2025-01-27 14:38] LABS: Thyroid Stimulating Hormone 1.600 uIU/mL (0.465-4.680)
[2025-01-27 14:43] LABS: Add Urine Microscopic? YES; Appearance Urine Clear (Clear); Glucose Urine UA Negative (Negative); Leukocyte Esterase Ur Trace LEU/UL (Negative); Nitrate Urine Negative (Negative); Specific Grav Ur 1.015 (1.010-1.020)
[2025-01-27 14:50] VITALS: BP 132/59; PULSE 80; RESP 16; TEMP 36.9; O2SAT 96
[2025-01-27 15:35] VITALS: BP 125/70; PULSE 75; RESP 16; O2SAT 98
== END 2025-01-27 15:35 | disposition home or self-care (01) ==
PROVIDERS: Emergency Provider Internal Medicine Critical Care Medicine; PCP Family Medicine
DX: T67.1XXA Heat syncope, initial encounter (principal); S32.2XXA Fracture of coccyx, initial encounter for closed fracture; I10 Essential (primary) hypertension; W19.XXXA Unspecified fall, initial encounter
CPT/HCPCS: 36415; 70450; 71045; 72125; 72220; 80053; 81001; 82948; 83605; 83690; 84443; 84484; 84550; 85025; 93005; 96360; 99284; J7120

== ENCOUNTER 2025-02-04 12:46 | Outpatient (CLI) | payer OTHER, MEDICAID, SELFPAY ==
--- NOTE | ~2025-02-04 | CT_ITS ---
CT of the Abdomen and Pelvis: Indication: Abdominal pain Technique: 2.5 mm axial scans were obtained through the abdomen and pelvis following intravenous adm inistration of 100 cc of Omnipaque 350. Dose reduction technique was used on this scan by utilizing a utomated exposure control and iterative reconstruction technique. The dose-length product (DLP) was 3 42.78 mGy-cm. Findings: Scans through the lung bases are unremarkable. The liver, spleen, pancreas, gallbladder, adrenals and right kidney are within normal limits. 4 mm no nobstructing left renal stone present. No evidence of aortic aneurysm. No lymphadenopathy. No bowel obstruction or bowel wall thickening. There is no evidence to suggest acute appendicitis. Images through the pelvis were performed. Urinary bladder unremarkable. No pelvic mass evident. No as cites. Impression: 4 mm nonobstructing left renal stone. Reviewed, dictated and finalized at [facility]. Impression: 4 mm nonobstructing left renal stone.
--- OUTSIDE RECORDS SUMMARY | 2025-02-04 12:49 | XMS_ITS | Encounter Summary ---
Author Organization [facility] Address [address] [place] [address] Phone Care Team Providers Care Aluminum Sheet Cutter Name Role Phone Paulie Hawkins MD Primary Care Provider [phone] Ramon Peacock PROFESSIONAL ADVISOR, CRAP GAME BOX PERSON Unavailable + [phone] Ely Haile PROFESSIONAL ADVISOR, MANAGER REGIONAL Unavailable [phone]- [phone] Reason for Visit * Reason Comments Medication Refill Encounter Details Date Type Department Care Team (Late st Contact Info) Description 11/25/2022 Refill [facility] Emergency Department [address]2 [place] [address] Ely Haile, PROFESSIONAL ADVISOR, MANAGER REGIONAL [address] [place] [address] Medication Refill Social History Tobacco Use Types [...] 19 06/22/2024 06/22/2024 06/22/2024 12:1 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
--- OUTSIDE RECORDS SUMMARY | 2025-02-04 12:49 | XMS_ITS | Encounter Summary ---
Author Organization [facility] Address [address] [place] [address] Phone Care Team Providers Care Puppet Master Name Role Phone Paulie Hawkins MD Primary Care Provider [phone] Ramon Peacock INTERACTIVE MEDIA SPECIALIST, INSIDE SALES CONSULTANT Unavailable [phone] Ely Haile INTERACTIVE MEDIA SPECIALIST, HOST/HOSTESS HEAD Unavailable [phone]- [phone] Reason for Visit * Reason Comments Medication Refill Encounter Details Date Type Department Care Team (Late st Contact Info) Description 08/06/2023 Refill [facility] #2 [place] [id number] Ely Haile, INTERACTIVE MEDIA SPECIALIST, HOST/HOSTESS HEAD [address] [place] [address] Medication Refill Social History Tobacco Use Types [...] Dept 02/22/23 Office Visit Ely Haile APRN, [facility] [address] 09/14/22 Office Visit Ely Haile APRN, [facility] Showing recent visits within past 730 days and meeting all other requirements Future Appointments Date Type Provider Dept 08/23/23 Appointment Ely Haile APRN, [facility] [address] Showing future appointments within next 90 days and meeting all other requirements Passed - No documented Systolic BP > 200 within past 3 months Passed - Number of active Serotonergic medications less than 3 HOUSE REPRESENTATIVE documented in this encounter Plan of Treatment [...] 19 06/22/2024 06/22/2024 06/22/2024 12:1 7 PM WAREHOUSE REPRESENTATIVE documented as of this encounter Care Teams Puppet Master Relationship Specialty Start Date End Date Paulie Hawkins MD [address] [place] [address] PCP - General Internal Medicine 08/08/16 Ramon Peacock, INTERACTIVE MEDIA SPECIALIST, INSIDE SALES CONSULTANT [address] [place] [address] Nurse Practitioner Advanced Practice Nurse 07/26/23 Ely Haile APRN, HOST/HOSTESS HEAD [address] [place] [address] Nurse Practitioner Advanced Practice Nurse 09/14/22 documented as of this encounter
--- OUTSIDE RECORDS SUMMARY | 2025-02-04 12:49 | XMS_ITS | Clinical Summary ---
Author Organization [facility] Address [address] [place] [address] Phone Care Team Providers Care Net Programmer Analyst Name Role Phone Paulie Hawkins MD Primary Care Provider [phone] Ramon Peacock PICKLE PUMPER, MACHINE STUFFER Unavailable + [phone] Ely Haile PICKLE PUMPER, BLASTING GANG MINER Unavailable [phone]- [phone] Allergies Active Allergy Reactions Criticality Noted Date [...] by mouth once as needed for Other (headache/shabnam alejandrina). 10 Tablet 2 4 Active prochlorperazine (COMPAZINE) 5 MG Tablet Take 1-2 Tablets by mouth every 6 hours as needed (headache). 10 Tablet 4 Active ondansetron (ZOFRAN) 4 MG TabletIndication s:Nausea and Vomiting Take 1 Tablet by mouth every 8 hours as needed for Nausea - 1st line. Indications: Nausea and Vomiting 10 Tablet 5 Active Active Problems No known active problems Encounters Date Type Department Care Team Description 12/27/2024 3:45 PM CDT - 12/27/2024 6:05 PM CDT Emergency [facility] Emergency [address] [place] [address] Dutch Bueno, RANDALL Viral gastroenteritis Discharge Disposition: Discharged to home [...] 2023- season) 2024 07/23/2021, 06/30/2021 Influenza Immunization (#1) 03/29/202504/29, 04/25/2015 Td Immunization Every 10 Yea rs [...] HCG () (12/27/2024 4:52 PM CDT) Pathologist [facility] POC URINE Negative POC URINE CONTROL Team Psychologist Pass Urine 12/27/2024 4:52 PM CDT Dutch Bueno PAC POINT OF CARE TESTIN G (MANUAL) Final Result * (ABNORMAL) Urinalysis w/ Reflex (12/27/2024 4:51 PM CDT) Pathologist [facility] SPECIFIC GRAVITY 1.025 1.003 - 1.030 12/27/2024 5:36 PM CDT [facility] URINE PH 6.0 5.0 - 9.0 12/27/2024 5:36 PM CDT [facility] WBC ESTERASE 25 /ul(A) Negative 12/27/2024 5:36 PM CDT [facility] NITRITE Negative Negative 12/27/2024 5:36 PM CDT [facility] PROTEIN, RANDOM URINE 100 mg/dL(A) Negative 12/27/2024 5:36 PM CDT [facility] URINE GLUCOSE, QUAL Negative Negative 12/27/2024 5:36 PM CDT [facility] URINE KETONES 150 mg/dL(A) Negative 5:36 PM CDT [facility] UROBILINOGEN Normal Normal mg/dL 12/27/2024 5:36 PM CDT [facility] URINE BLOOD 150 /uL(A) Negative jamarcus/ul 12/27/2024 5:36 PM CDT [facility] URINALYSIS COLOR Yellow 12/28/19 5:36 PM CDT [facility] URINALYSIS CLARITY Slightly Cloudy 12/27/2024 5:36 PM CDT [facility] WBC (Urine) 11-20(A) Negative, 0-5 /hpf 12/27/2024 5:36 PM CDT [facility] URINE RBC'S 6-10(A) Negative, 0-2 /hpf 12/27/2024 5:36 PM CDT [facility] EPITHELIAL CELLS Moderate amount /lpf 12/27/2024 5:36 PM CDT [facility] BACTERIA, URINE Few(A) Negative /hpf 12/27/2024 5:36 PM CDT [facility] URINE MUCOUS Many 12/27/2024 5:36 PM CDT [facility] Urine URINE SPECIMEN OBTAINED BY CLEAN CATCH PROCEDURE / Unknown Non-Phlebotomy Collection / Unknown 12/27/2024 4:51 PM CDT 12/27/2024 5:05 PM CDT us Dutch Bueno PAC URINE ORDERABLES Fin al Result [facility] [address] [place] [address] * Culture, Urine (12/27/2024 4:51 PM CDT) CULTURE RESULTS Mixed Growth or 3 or More Organisms, Probable Collection Contamination, Suggest Repeat 12/29/2024 9:17 AM [facility] URINE SPECIMEN OBTAINED BY CLEAN CATCH PROCEDURE / Unknown Non-Phlebotomy Collection / Unknown 12/27/2024 4:51 PM CDT 12/27/2024 5:05 PM CDT us Dutch Egan Ximena PAC MICROBIOLOGY - GENER AL ORDERABLES Final Result [facility] [address] [place] [address], * (ABNORMAL) CBC with Auto Differential (12/27/2024 4:14 PM CDT) WBC 12.98(H) 4.00 - 12.00 10(3)/mcL 12/27/2024 4:49 PM CDT [facility] RBC 5.02 3.80 - 5.30 10(6)/mcL 12/27/2024 4:49 PM CDT [facility] HEMOGLOBIN (HGB) 15.3 12.0 - 15.8 g/dL 12/27/2024 4:49 PM CDT [facility] HEMATOCRIT (HCT) 45.1 36.0 - 47.0 % 12/27/2024 4:49 PM CDT [facility] MCV 89.8 82.0 - 96.0 fL 12/27/2024 4:49 PM CDT [facility] MCH 30.5 26.0 - 34.0 pg 12/27/2024 4:49 PM CDT [facility] MCHC 33.9 31.0 - 36.0 g/dL 12/27/2024 4:49 PM CDT [facility] PLATELET COUNT 483(H) 140 - 440 10(3)/mcL 12/27/2024 4:49 PM CDT [facility] RDW 12.6 11.8 - 15.5 % 12/27/2024 4:49 PM CDT [facility] MPV 10.0 9.7 - 12.4 fL 12/27/2024 4:49 PM CDT [facility] NEUTROPHILS 83.5(H) 47.0 - 73.0 % 12/27/2024 4:49 PM CDT [facility] LYMPHOCYTES 10.2(L) 18.0 - 42.0 % 12/27/2024 4:49 PM CDT [facility] MONOCYTES 6.1 4.0 - 12.0 % 12/27/2024 4:49 PM CDT [facility] EOSINOPHILS 0.0 0.0 - 5.0 % 12/27/2024 4:49 PM CDT [facility] BASOPHILS 0.2 0.0 - 1.0 % 12/27/2024 4:49 PM CDT [facility] ABSOLUTE NEUTROPHILS 10.84(H) 1.60 - 7.70 10(3)/[facility] 12/27/2024 4:49 PM CDT [facility] ABSOLUTE LYMPHOCYTES 1.32 1.30 - 3.20 10(3)/[facility] 12/27/2024 4:49 PM CDT [facility] ABSOLUTE MONOCYTES 0.79 0.20 - 1.00 10(3)/[facility] 12/27/2024 4:49 PM CDT [facility] ABSOLUTE EOSINOPHIL 0.00 0.00 - 0.40 10(3)/[facility] 12/27/2024 4:49 PM CDT [facility] ABSOLUTE BASOPHILS 0.03 0.00 - 0.10 10(3)/[facility] 12/27/2024 4:49 PM CDT [facility] NRBC PER 100 WBC 0 12/28/19 25 4:49 PM CDT [facility] Blood Venipuncture / Unknown 12/27/2024 4:14 PM CDT 12/27/2024 4:45 PM CDT us Dutch Bueno PAC HEMATOLOGY ORDERABLE S Final Result [facility] [address] [place] [address] * Lipase (12/27/2024 4:14 PM CDT) LIPASE 8 8 - 78 U/L 12/27/2024 5:13 PM CDT [facility] Blood Venipuncture / Unknown 12/27/2024 4:14 PM CDT 12/27/2024 4:45 PM CDT us Dutch Bueno PAC CHEMISTRY ORDERABLES Final Result [facility] [address] [place] [address] * (ABNORMAL) CMP (12/27/2024 4:14 PM CDT) SODIUM 141 136 - 145 mmol/L 12/27/2024 5:13 PM CDT [facility] POTASSIUM 3.7 3.5 - 5.1 mmol/L 12/27/2024 5:13 PM CDT [facility] CHLORIDE 104 98 - 107 mmol/L 12/27/2024 5:13 PM CDT [facility] CO2, VENOUS 22 22 - 30 mmol/L 12/27/2024 5:13 PM CDT [facility] ANION GAP 18.7(H) <18.0 mmol/L 12/27/2024 5:13 PM CDT [facility] GLUCOSE 94 70 - 99 mg/dL 12/27/2024 5:13 PM CDT [facility] BUN 14 5 - 18 mg/dL 12/27/2024 5:13 PM CDT [facility] CREATININE, BLOOD 0.70 0.60 - 1.00 mg/dL 12/27/2024 5:13 PM CDT [facility] BUN/CREATININE RATIO 20 12 - 20 ratio 12/27/2024 5:13 PM CDT [facility] TOTAL PROTEIN 8.2(H) 6.0 - 8.0 g/dL 12/27/2024 5:13 PM CDT [facility] ALBUMIN 4.6 3.5 - 5.0 g/dL 12/27/2024 5:13 PM CDT [facility] A/G RATIO 1.3 1.0 - 2.2 12/27/2024 5:13 PM CDT [facility] CALCIUM 9.5 8.7 - 10.5 mg/dL 12/27/2024 5:13 PM CDT [facility] T BILI 0.4 0.2 - 1.2 mg/dL 12/27/2024 5:13 PM CDT [facility] SGOT (AST) 23 <43 U/L 12/27/2024 5:13 PM CDT [facility] SGPT (ALT) 18 <56 U/L 12/27/2024 5:13 PM CDT [facility] ALKALINE PHOSPHATASE 69 40 - 150 U/L 12/27/2024 5:13 PM CDT [facility] GFR, ESTIMATED >60 >=60 12/27/2024 5:13 PM CDT [facility] Comment: Creatinine Clearance is the preferred criteria for selecting drug dose adjustments in renally impaired patients. The GFR is provided as additional pertinent clinical information. GFR is reported in mL/min/1.73 sq m. Calculation based on the Chronic Kidney Disease Epidemiology Collaboration (CKD- EPI) equation refit without adjustment for race. GFR, EST. >60 >=60 025 5:13 PM CDT [facility] GFR, EST. NONAFRICAN >60 >=60 12/27/2024 5:13 PM CDT [facility] Blood Venipuncture / Unknown 12/27/2024 4:14 PM CDT 12/27/2024 4:45 PM CDT us Dutch Bueno PAC CHEMISTRY ORDERABLES Final Result [facility] [address] [place] [address] from Last 3 Months Insurance [facility] O Care Teams Net Programmer Analyst Relationship Specialty Start Date End Date Paulie Hawkins MD [address] [place] [address] PCP - General Internal Medicine 08/08/16 Ramon Peacock APRN, MACHINE STUFFER [address] [place] [address] Nurse Practitioner Advanced Practice Nurse 07/26/23 Ely Haile APRN, BLASTING GANG MINER [address] [place] [address] Nurse Practitioner Advanced Practice Nurse 09/14/22
== END 2025-02-04 12:47 | disposition home or self-care (01) ==
PROVIDERS: PCP Family Medicine; Visit Provider Nurse Practitioner
DX: R10.84 Generalized abdominal pain (principal); N20.0 Calculus of kidney
CPT/HCPCS: 74177; Q9967